=== PATIENT | male | born 1930 | race Caucasian/White ===

== ENCOUNTER 2017-01-16 02:01 | Inpatient (IN) | payer MEDICARE, MEDICAID ==
[2017-01-16] MEDS ORDERED: NS 0.9% 1000 ML* 1,000 ML IV ONE ×4 (02:23→12:21)
[2017-01-16] MEDS ORDERED: Ondansetron INJ* 2 MG/ML VIAL IV ONE ×2 (02:23→04:05)
[2017-01-16] MEDS ORDERED: Acetaminophen TAB* 325 MG PO ONE (02:40)
[2017-01-16 03:16] LABS: ABS Basophils 0 10^3/ul (0-0.2); ABS Eosinophils 0 10^3/ul (0-0.6); ABS Lymphocytes 0.5 10^3/ul (1.0-4.8); ABS Monocytes 0.4 10^3/ul (0-0.8); ABS Neutrophils 8.5 10^3/ul (1.5-7.7); ABS Nucleated RBC 0 10^3/ul; Eosinophil % 0.2 % (0-6); Hematocrit 40 % (42-52); Hemoglobin 13.4 g/dl (14.0-18.0); Lymphocyte % 5.3 % (25-47); Mean Corpuscular HGB Conc 34 g/dl (31-36); Mean Corpuscular Hemoglobin 31 pg (27-31); Mean Corpuscular Volume 91 fL (80-94); Mean Platelet Volume 8 um3 (7.4-10.4); Nucleated Red Blood Cells % 0; Platelet Count 204 10^3/ul (150-450); Red Blood Count 4.35 10^6/ul (4.0-5.4); Red Cell Distribution Width 15 % (10.5-15); White Blood Count 9.4 10^3/ul (3.5-10.8)
[2017-01-16 03:24] LABS: INR 1.11 (0.77-1.02)
[2017-01-16 03:31] LABS: EGFR Non-African American 65.7 (>60)
[2017-01-16] MEDS ORDERED: Iohexol 300* (CONTRAST) 10 ML SDV IV ONE (03:35)
[2017-01-16] MEDS ORDERED: Ondansetron INJ* 2 MG/ML VIAL ONE (04:05)
[2017-01-16] MEDS ORDERED: Acetaminophen SUPP* 650 MG SUPP PR ONE (04:05)
[2017-01-16] MEDS ORDERED: Acetaminophen SUPP* 650 MG SUPP ONE (04:05)
[2017-01-16 04:16] LABS: Urine Appearance Clear; Urine Blood 1+ (Negative); Urine Color Amber; Urine Ketones Negative (Negative); Urine Protein 1+(30 mg/dL) (Negative); Urine Specific Gravity 1.019 (1.010-1.030); Urine Urobilinogen Positive (Negative)
[2017-01-16] MEDS ORDERED: Levofloxacin 500 MG IVPREMIX(* 500 MG/100 ML BAG IVPB ONE (04:54)
[2017-01-16] MEDS ORDERED: metroNIDAZOLE IV 500 MG/100ML* 500 MG/100 ML BAG IVPB ONE (04:55)
[2017-01-16] MEDS ORDERED: Ibuprofen TAB* 800 MG PO ONE (05:14)
--- NOTE | 2017-01-16 06:19 | ED ---
Ulices Castillo Thomas, scribed for Zoran Gonzales MD on 01/16/17 at 0226 . Complex/Multi-Sys Presentation - HPI Summary HPI Summary: The patient is a 86 year old male brought in by ambulance with a fever at 101.5 , nausea, and vomiting (small amounts x2 episodes) that began one hour ago. He was short of breath prior to arrival, but he took albuterol and his shortness of breath is relieved in the ED. His last BM was yesterday at 21:00. Patient additionally complains of chronic back pain. Patient denies diarrhea. He had a AAA repair a few weeks ago. - History Of Current Complaint Chief Complaint: EDFever Hx Obtained From: Patient Onset/Duration: Lasting Hours - 1, Still Present Timing: Intermittent, Lasting: - two episodes Severity Currently: Moderate Aggravating Factor(s): None Alleviating Factor(s): None Associated Signs And Symptoms: Positive: Other - Fever, nausea, vomiting, chronic back pain; NEGATIVE: SOB, diarrhea - Allergies/Home Medications Allergies/Adverse Reactions: Allergies Allergy/AdvReac Type Severity Reaction Status Date / Time Penicillins Allergy Intermediate Hives Verified 09/01/15 19:07 Home Medications: Home Medications Fluticas/Salmet 230/21 HFA(NF) [Advair HFA 23O/21 (NF)] 2 puff INH BID 01/16/17 [History Confirmed 01/16/17] PMH/Surg Hx/FS Hx/Imm Hx Previously Healthy: No Endocrine/Hematology History: Reports: Hx Anticoagulant Therapy - Xarelto, Hx Blood Transfusions, Other Endocrine/Hematological Disorders - Vitamin B deficiency Denies: Hx Diabetes, Hx Systemic Lupus Erythematosus, Hx Sickle Cell Disease Cardiovascular History: Reports: Hx Aneurysm - abdominal aorta, Hx Angina, Hx Coronary Artery Disease, Hx Hypercholesterolemia, Hx Hypertension, Other Cardiovascular Problems/Disorders - AAA ABOVE RENAL BIFERCATION RECENT MEASURE CTA 11.30.2012 Denies: Hx Congestive Heart Failure Respiratory History: Reports: Hx Asthma, Hx Chronic Obstructive Pulmonary Disease (COPD), Hx Sleep Apnea - CPAP at home, Other Respiratory Problems/ Disorders - SOME FORM OF INFLAMATORY PROCESS IN PROGRESS 1 YEAR GI History: Denies: Hx Diverticulosis History: Reports: Hx Benign Prostatic Hyperplasia - minimal, Hx Kidney Stones - 20 years ago Comment Only: Other Problems/Disorders - HAS BE[facility] DR [facility]? 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 none since Hx Anesthesia Reactions: No - Immunization History Date of Tetanus Vaccine: PT STATES HE DOES NOT KNOW Date of Influenza Vaccine: PT STATES THAT HE DOES NOT KNOW Infectious Disease History: No Infectious Disease History: Denies: Traveled Outside the [place] in Last 30 Days - Family History Known Family History: Positive: Other - Patient denies relevant FHx - Social History Alcohol Use: None Hx Substance Use: No Substance Use Type: Reports: None Hx Tobacco Use: No Smoking Status (MU): Never Smoked Tobacco Review of Systems Positive: Fever Negative: Shortness Of Breath Positive: Vomiting, Nausea. Negative: Diarrhea Positive: Other - Chronic back pain All Other Systems Reviewed And Are Negative: Yes Physical Exam - Summary Physical Exam Summary: VITAL SIGNS: Reviewed. GENERAL: Patient is a well-developed and nourished male who is lying comfortable in the stretcher. He is in mild distress. Patient is not in any acute respiratory distress. HEAD AND FACE: No signs of trauma. No ecchymosis, hematomas or skull depressions. No sinus tenderness. EYES: PERRLA, EOMI x 2, No injected conjunctiva, no nystagmus. EARS: Hearing grossly intact. Ear canals and tympanic membranes are within normal limits. MOUTH: Oropharynx within normal limits. NECK: Supple, trachea is midline, no adenopathy, no JVD, no carotid bruit, no c- spine tenderness, neck with full ROM. CHEST: Symmetric, no tenderness at palpation LUNGS: He has decreased breath sounds bilaterally. CVS: Regular rate and rhythm, S1 and S2 present, no murmurs or gallops appreciated. ABDOMEN: His belly is distended. There are hypoactive bowel sounds. He has mild diffuse abdominal tenderness. Soft. No rebound no guarding, and no masses palpated. EXTREMITIES: FROM in all major joints, no edema, no cyanosis or clubbing. NEURO: Alert and oriented x 3. No acute neurological deficits. Speech is normal and follows commands. He has a static tremor in both upper extremities. SKIN: Dry and warm Triage Information Reviewed: Yes Vital Signs On Initial Exam: Initial Vitals Temp Pulse Resp BP Pulse Ox 101.5 F 109 22 136/60 96 01/16/17 02:05 01/16/17 02:05 01/16/17 02:05 01/16/17 02:05 01/16/17 02:05 Vital Signs Reviewed: Yes Diagnostics - Vital Signs Vital Signs Temp Pulse Resp BP Pulse Ox 01/16/17 02:05 101.5 F 109 22 136/60 96 - Laboratory Result Diagrams: 01/16/17 03:00 01/16/17 03:00 Lab Statement: Any lab studies that have been ordered have been reviewed, and results considered in the medical decision making process. - Radiology CXR Xray Interpretation: No Acute Changes - normal exam Radiology Interpretation Completed By: ED Physician XR Abdomen Xray Interpretation: Positive (See Comments) - Excessive stools Radiology Interpretation Completed By: ED Physician - CT CT Abd/Pel CT Interpretation: Positive (See Comments) - Aortic aneurysm repair with stent graph .Gallbladder distension and wall Thickening with a silhouette of pericholecystic fluid. Stones are not identified. Findings may reflect cholecystitis. Correlation with history and exam is recommended. Dr. Gonzales has reviewed this report. CT Interpretation Completed By: Radiologist - EKG 02:30 Cardiac Rate: Tachycardia EKG Rhythm: Sinus Tachycardia - at 108 BPM EKG Interpretation: Normal axis. Normal intervals. No ischemic changes. Complex Multi-Symp Course/Dx Assessment/Plan: The patient is a 86 year old male brought in by ambulance with a fever at 101.5, nausea, and vomiting (small amounts x2 episodes) that began one hour ago. He was short of breath prior to arrival, but he took albuterol and his shortness of breath is relieved in the ED. His last BM was yesterday at 21:00. Patient additionally complains of chronic back pain. Patient denies diarrhea. He had a AAA repair a few weeks ago. In the ED course the patient was given IV fluids, acetaminophen, ibuprofen, Levofloxacin, Flagyl and Zofran. Bloodwork and urinalysis was obtained. EKG shows sinus tachycardia. CXR shows negative exam. XR Abdomen shows excessive stools. CT Abd/Pel shows aortic aneurysm repair with stent graph .Gallbladder distension and wall Thickening with a silhouette of pericholecystic fluid. Stones are not identified. Findings may reflect cholecystitis. Correlation with history and exam is recommended. The patient is admitted by the hospitalists with diagnosis of acute cholecystitis. - Diagnoses Provider Diagnoses: Acute cholecystitis - Physician Notifications Discussed Care Of Patient With: Cuco Reyes Time Discussed With Above Provider: 05:56 Instructed by Provider To: Other - I consulted with maryse Whitfield, who recommends admission to the hospitalist. I spoke with Dr. Up, hospitalist, at 06:12. He will admit the patient. Discharge - Discharge Plan Condition: Fair Disposition: ADMITTED TO [facility] Referrals: Eve Hurst, [employer]IST [Primary Care Provider] - The documentation as recorded by the Ulices mancera Thomas accurately reflects the service I personally performed and the decisions made by me, Zoran Gonzales MD.
[2017-01-16] MEDS ORDERED: Ondansetron INJ* 2 MG/ML VIAL IV PRN (07:53)
[2017-01-16] MEDS ORDERED: Acetaminophen TAB* 325 MG PO PRN (07:53)
[2017-01-16] MEDS ORDERED: Albuterol HFA INHALER* 8 gm MDI INH PRN (07:54)
[2017-01-16] MEDS ORDERED: Morphine INJ* 2 MG/ML 1 ML SYRINGE (TWO MG - NEW SYRINGE VERSION) IV PRN (07:54)
--- NOTE | 2017-01-16 08:11 | ADMNOTE ---
Subjective Date of Service: 01/16/17 Interval History: ADMISSION HISTORY AND PHYSICAL EXAM: Allergies Allergy/AdvReac Type Severity Reaction Status Date / Time Penicillins Allergy Intermediate Hives Verified 09/01/15 19:07 Home Medications Medication Instructions Recorded Confirmed Type Albuterol HFA INHALER* [Ventolin 2 puff INH Q4H PRN 04/15/13 01/16/17 History HFA Inhaler*] Cholecalciferol [Vitamin D3] 2,000 unit PO DAILY 04/15/13 01/16/17 History Citalopram TAB* [Celexa TAB*] 20 mg PO DAILY 04/15/13 01/16/17 History Cyanocobalamin TAB* [Vitamin B12 500 mcg PO DAILY 04/15/13 01/16/17 History TAB*] Saw Destrehan (Serenoa Repens) [Saw 500 mg PO BID 04/15/13 01/16/17 History Destrehan] Amiodarone TAB* [Cordarone Tab*] 200 mg PO DAILY 08/19/15 01/16/17 History Ferrous Sulfate TAB* 325 mg PO BID 08/19/15 01/16/17 History amLODIPine TAB* [Norvasc 5 mg TAB*] 10 mg PO DAILY 08/19/15 01/16/17 History Pantoprazole TAB (NF) [Protonix 40 mg PO DAILY #30 tab 08/23/15 01/16/17 Rx TAB (NF)] Fluticas/Salmet 230/21 HFA(NF) 2 puff INH BID 01/16/17 01/16/17 History [Advair HFA 23O/21 (NF)] HPI: The patient was in his usual state of health until 01/15 about 10 PM he developed nausea, then emesis and shaking chills. T up to 104.7 in ED, received APAP. No pain. No previous similar episodes. Social History: Findings - Lives with his son Angel who is his SDM. No alcohol or tobacco use. Past Medical History: Findings - Percutaneous repoari AAA 11/2016 at [facility]. Hx GI bleed 2015. Atrial fib, CAD, HTN, B12 deficiency, COPD, TARAH, hx TIA Review of Systems - Measurements Intake and Output: Intake and Output Last 24 Hours 12/09/17 12/10/17 12/11/17 12/12/17 06:59 06:59 06:59 06:59 Intake Total 2199 Balance 2199 Weight 215 lb Intake: IV Fluids 2199 - Review of Systems Constitutional Symptoms: Negative: Weight Gain, Weight Loss, Weakness, Fatigue, Fever, Night Sweats, Unexplained Falls, Other Dermatology: Positive: Normal HEENT: Positive: Normal Eyes: Negative: Normal, Change in Vision, Double Vision, Eye Pain, Glaucoma, Cataract, Contacts or Glasses, Other Thyroid: Positive: Normal Pulmonary: Positive: Cough, COPD, Other - TARAH Cardiology: Positive: Other - HX atrial fib Gastroenterology: Positive: Nausea, Vomiting Musculoskeletal: Positive: Joint Pain Endocrinology: Positive: Normal Hematologic/Lymphatic: Negative: Anemia, Easy Brusing, Hx Leukemia, Hx Lymphoma, Use of Anticoagulant, Use of Antiplatelet Drugs, Other Neurology: Positive: Normal Psychiatry: Positive: Normal Allergic/Immunologic: Negative: Hx Anaphylaxis, Hx Angioedema, Hx Environmental, Hx Seasonal, Athsma, Hx HIV, Immunocompromise, Swollen Glands LymphNodes, Other Objective Active Medications: Acetaminophen (Tylenol Tab*) 650 mg PO Q4H PRN PRN Reason: FEVER Albuterol (Ventolin Hfa Inhaler*) 2 puff INH Q4H PRN PRN Reason: SHORTNESS OF BREATH Amiodarone HCl (Cordarone Tab*) 200 mg PO DAILY RENALDO Citalopram Hydrobromide (Celexa Tab*) 20 mg PO DAILY RENALDO Cyanocobalamin (Vitamin B12 Tab*) 500 mcg PO DAILY [facility] Enoxaparin Sodium (Lovenox(*)) 40 mg SUBCUT Q24H [facility] Levofloxacin/Dextrose (Levaquin 500 Mg Ivpremix(*)) 500 mg in 100 mls @ 100 mls /hr IVPB Q24H RENALDO Metronidazole/Sodium Chloride (Flagyl 500 Mg Ivpb*) 500 mg in 100 mls @ 100 mls /hr IVPB Q8H [facility] Morphine Sulfate (Morphine Inj (Syringe)*) 1 mg IV Q1H PRN PRN Reason: PAIN Ondansetron HCl (Zofran Inj*) 4 mg IV Q4H PRN PRN Reason: NAUSEA Pantoprazole Sodium (Protonix Tab (Nf)) 40 mg PO DAILY [facility] Vital Signs - 8 hr 01/16/17 01/16/17 01/16/17 02:05 03:05 03:07 Temperature 101.5 F Pulse Rate 109 106 105 Respiratory 22 Rate Blood Pressure 136/60 135/66 (mmHg) O2 Sat by Pulse 96 92 93 Oximetry 01/16/17 01/16/17 01/16/17 03:26 04:03 04:05 Temperature Pulse Rate 109 100 Respiratory Rate Blood Pressure 148/69 (mmHg) O2 Sat by Pulse 93 92 Oximetry 01/16/17 01/16/17 01/16/17 04:07 04:18 05:00 Temperature 104.7 F Pulse Rate 104 101 Respiratory 32 32 Rate Blood Pressure 143/70 125/56 (mmHg) O2 Sat by Pulse 93 90 Oximetry 01/16/17 01/16/17 01/16/17 05:04 05:30 06:00 Temperature 103.2 F Pulse Rate 97 95 Respiratory 26 29 Rate Blood Pressure 118/63 117/60 (mmHg) O2 Sat by Pulse 92 93 Oximetry 01/16/17 01/16/17 01/16/17 06:04 06:30 07:00 Temperature 99.9 F Pulse Rate 91 89 Respiratory 28 27 Rate Blood Pressure 101/60 102/60 (mmHg) O2 Sat by Pulse 93 92 Oximetry 01/16/17 07:04 Temperature 98.3 F Pulse Rate Respiratory Rate Blood Pressure (mmHg) O2 Sat by Pulse Oximetry Oxygen Devices in Use Now: None Appearance: Alert, partly up on ED stretcher. In good spirits. Looks comfortable. Eyes: No Scleral Icterus Ears/Nose/Mouth/Throat: Mucous Membranes Moist Neck: NL Appearance and Movements; NL JVP, No Thyroid Enlargement, Masses Respiratory: Symmetrical Chest Expansion and Respiratory Effort, Clear to Auscultation, Clear to Percussion Abdominal: No Hepatosplenomegaly, - - very obese, soft, not tender. Diminished BS. Extremities: No Edema, No Clubbing, Cyanosis, - Skin: No Nodules or Sclerosis, - - lower legs somewhat hyperpigmented Neurological: Alert and Oriented x 3, NL Sensation Result Diagrams: 01/16/17 03:00 01/16/17 03:00 Assess/Plan/Problems-Billing Assessment: - Patient Problems (1) Elevated LFTs Current Visit: Yes Status: Acute Code(s): R79.89 - OTHER SPECIFIED ABNORMAL FINDINGS OF BLOOD CHEMISTRY SNOMED Code(s): 046300061 Comment: Possible cholecystitis. Continue levofloxacin and metro. Dr. Reid to see. US abd ordered. CLear liquids, IV fluids, antiemetic PRN, analagesic PRN. CMP 01/17. (2) Atrial fibrillation Current Visit: No Status: Acute Code(s): I48.91 - UNSPECIFIED ATRIAL FIBRILLATION SNOMED Code(s): 54697558 Comment: Continue amiodarone. Off anticoagulation since GI bleed 2016. Avoid ASA or other NSAID's. (3) Iron deficiency Current Visit: Yes Status: Acute Code(s): E61.1 - IRON DEFICIENCY SNOMED Code(s): 53976566 Comment: Clearly present in 2016, appears to be repleted. Stop iron, monitor. (4) Sepsis Current Visit: Yes Status: Acute Comment: Sepsis due to probable cholecystitis. Repeat lactate pending. Continue IV fluids. ICU care first 24 hrs. (5) CAD (coronary artery disease) Current Visit: No Status: Acute Code(s): I25.10 - ATHSCL HEART DISEASE OF [place] CORONARY ARTERY W/O ANG PCTRS SNOMED Code(s): 49865220 Comment: Stable. No ASA as may have caused his GI bleed 2015. (6) DVT prophylaxis Current Visit: No Status: Acute Code(s): GUT0327 - SNOMED Code(s): 148482567 Comment: Enoxaparin. Benefit outweighs risk. CBC 01/17. (7) COPD (chronic obstructive pulmonary disease) Current Visit: No Status: Acute Code(s): J44.9 - CHRONIC OBSTRUCTIVE PULMONARY DISEASE, UNSPECIFIED SNOMED Code(s): 61592459 Comment: Stable. Continue albuterol PRN. (8) HTN (hypertension) Current Visit: No Status: Chronic Code(s): I10 - ESSENTIAL (PRIMARY) HYPERTENSION SNOMED Code(s): 95176272 Comment: Hold amlodipine.
--- NOTE | 2017-01-16 08:11 | RAD ---
Indication: Vomiting. Patient status post aortic stent graft repair. Bowel gas pattern is otherwise unremarkable. No evidence of obstruction is noted. IMPRESSION: No free air or obstruction is noted. Patient status post aortic stent graft repair.
--- NOTE | 2017-01-16 08:13 | RAD ---
INDICATION: Shortness of breath. COMPARISON: Comparison is made with a prior study from March 04, 2016. TECHNIQUE: Dual-energy PA views of the chest were obtained. FINDINGS: The heart is within normal limits in size. Mediastinal and hilar contours appear within normal limits. The lungs are underinflated. There are linear infiltrates at both lung bases suggestive of atelectasis. No pleural effusion is seen. IMPRESSION: LOW LUNG VOLUMES AND BIBASILAR INFILTRATES SUGGESTIVE OF ATELECTASIS.
[2017-01-16] MEDS: D5W 1/2 NS KCl 20 Meq 1000 ML* 1,000 ML IV SCH ×2 (09:41→20:01)
--- NOTE | 2017-01-16 09:50 | RAD ---
Indication: Abdominal pain. Contrast: Administered 131.0 ml of OMNIPAQUE 300 mg/ml. CT of the abdomen and pelvis was performed after IV contrast administration. No oral contrast was given. Coronal and sagittal reconstructed images were obtained. The lung bases demonstrate no pleural fluid, nodules or masses. Heart is of normal size without evidence of pericardial effusion. The liver is normal in size. No focal lesions or intrahepatic duct dilatation is noted. There is motion artifact noted. The gallbladder demonstrates no calcified gallstones. There may be some mild wall thickening. The spleen is normal in size. No adrenal lesions are noted. The kidneys demonstrate symmetric nephrograms. Small cortical cyst in the upper pole of the right kidney. The pancreas demonstrates no mass or pancreatic duct dilatation. Duodenal diverticulum is noted. No retroperitoneal lymphadenopathy is noted. No dilated loops of bowel are noted. The colon is filled with stool. There is aneurysmal dilatation of the [place] aorta with aortic stent graft repair. Common iliac arteries are unremarkable. CT of the pelvis demonstrates no retroperitoneal or pelvic lymphadenopathy. The prostate is enlarged. The seminal vesicles are unremarkable. No hernias are noted. IMPRESSION: No abnormal masses or fluid collections are noted. Patient is status post aortic stent graft repair.
--- NOTE | 2017-01-16 10:28 | RAD ---
Indication: Fever, elevated liver enzymes. Real-time sonography of the right upper quadrant was performed. The liver measures 18.0 cm in length. It is diffusely increased in echogenicity consistent with hepatic steatosis. The study is limited due to overlying gas. The gallbladder is distended. The gallbladder appears to be mildly thickened measuring up to 5 mm although no evidence of gallstones are noted. Common duct measures 5 mm. Right kidney measures 12.6 x 6.0 x 5.9 cm with no hydronephrosis. A cyst is noted in the upper pole of the right kidney measured to 15 mm. The pancreas is limited in evaluation due to body habitus. Aorta and inferior vena cava are unremarkable. IMPRESSION: The gallbladder is distended with wall thickening measuring up to 5 mm however no gallstones are identified. There is evidence of hepatic steatosis.
[2017-01-16] MEDS: Citalopram TAB* 20 MG PO SCH (10:30)
[2017-01-16] MEDS: Amiodarone TAB* 200 MG PO SCH (10:30)
[2017-01-16] MEDS: Enoxaparin(*) 40 MG/0.4 ML SYR SUBCUT SCH (10:30)
[2017-01-16] MEDS: Omeprazole CAP* 20 MG PO SCH (10:30)
[2017-01-16] MEDS: Cyanocobalamin TAB* 500 MCG PO SCH (10:30)
[2017-01-16] MEDS: metroNIDAZOLE IV 500 MG/100ML* 500 MG/100 ML BAG IVPB SCH ×2 (14:52→21:47)
--- NOTE | 2017-01-16 20:16 | CONS ---
CC: Eve Garrido NP, [facility] * CONSULTATION REPORT: DATE OF CONSULT: 01/16/17 REFERRING PROVIDER: Dr. Mynor Roland, hospitalist. REASON FOR CONSULTATION: Possible cholecystitis. HISTORY OF PRESENT ILLNESS: Mr. Abdi Cooney is a very pleasant 86-year-old gentleman who had gone out for dinner last evening at a fund raising dinner when 3 to 4 hours after that he developed what he described as nausea without vomiting. He felt a little bit of abdominal bloating, but he had no abdominal pain. There was no pain into his back or chest or right shoulder. He also had some shaking chills and they noted to have a temperature of 104.7 in the emergency room and he received Tylenol. After presenting to the emergency room, he also had some vomiting, which he described as the food almost intact that he had eaten earlier for dinner. When seen in the emergency room, he did indeed have a temperature up to 104.7. Blood cultures were obtained. He was noted to have abdominal distention, but no localizing abdominal pain. Laboratory values include a white blood cell count of 9.4 with a hemoglobin of 13.4. He had a rise in his neutrophils. Also, of note was an elevated lactic acid to 4.3. He had total bili of 2.1, AST and ALT of 221 and 99, and alkaline phosphatase 187, C-reactive protein of 12.5. It should be noted that his lactic acid has decreased steadily over the course of the day. A CT scan was also obtained. This has been read by our radiologist and I reviewed these images. This shows an intact aortic stent graft in the aorta with no abnormality. The gallbladder demonstrated no calcified stones and there was a possibility of some mild wall thickening, but no pericholecystic fluid. There were no other acute findings. Subsequently, he underwent an ultrasound of his gallbladder. This once again also showed no gallstones, but the gallbladder was distended with mild thickening of the gallbladder wall up to 5 mm. The common bile duct measured 5 mm. There are no other acute findings. He was started on a broad spectrum IV antibiotics. He has been admitted to the intensive care unit in light of his fever and sepsis diagnosis for further evaluation. A surgical consultation was obtained. PAST MEDICAL HISTORY: 1. Atrial fibrillation, longstanding. 2. History of abdominal aortic aneurysm, status post repair with a stent graft 6 weeks ago at the [facility]. 3. Obstructive lung disease. 4. History of iron deficiency. 5. Coronary artery disease. 6. Hypertension. PAST SURGICAL HISTORY: Aortic stent placement percutaneously 6 weeks ago at the [facility]. He has not had prior abdominal surgeries. MEDICATIONS ON ADMISSION: Include: 1. Amiodarone. 2. Albuterol. 3. Ferrous sulfate. 4. Vitamin B. 5. Citalopram. 6. Saw palmetto. 7. Amlodipine. 8. Pantoprazole. ALLERGIES: He is allergic to PENICILLINS. SOCIAL HISTORY: He is retired. He lives with his son Angel who is his decision maker. He does not use alcohol or tobacco. REVIEW OF SYSTEMS: GI: As per above. He has no history of gallbladder or biliary tract symptoms. No history of hepatitis. He has had no noted diarrhea or blood per rectum. He has a history of melena and his anticoagulation was stopped over a year ago for this reason. PHYSICAL EXAM: Temperature 98.6, pulse 62, blood pressure 98/53. In general, he is a slightly overweight male, appears to be in no apparent distress. He is sitting upright in bed, appears to be quite pleasant and conversive. The sclerae is anicteric. His oral mucosa is slightly dry. His lungs are clear to auscultation with normal respiratory effort. Heart has regular rate and rhythm without murmurs, rubs, or gallops. His abdomen is soft, but distended and protuberant. There are no prior surgical incisions. There are no hernias noted. He had some hyperactive bowel sounds throughout, but these are not high pitched or tinkling. He has no tenderness in the left upper abdomen, epigastric or right upper quadrant area. There is no rebound or guarding or localizing abdominal discomfort noted. IMPRESSION: Sudden onset of nausea with vomiting and a markedly elevated fever. This was followed by vomiting food that had been eaten at his dinner. Laboratory values include a normal white blood cell count with a mildly elevated total bilirubin and liver transaminases. Ultrasound and CT scan are as above. At this point, reviewing both the ultrasound and the CAT scan as well as the physical exam, it is difficult to say with certainty whether this is an acute acalculous cholecystitis. His exam is benign and although there is some mild thickening of the gallbladder wall, there is no pericholecystic fluid and the wall appears to enhance nicely on the CT scan. There is no ductal dilation and once again no stones. Certainly this could be an early stage of acute acalculous cholecystitis; however, I am quite impressed with a fever up to 104 that could have occurred quite that quickly, although with an 86-year-old gentleman there could be atypical presentations of cholecystitis. Another possibility would be cholangitis with a passed gallstone or debris although I think this would be less likely without stones noted on an ultrasound or the CT scan. However, cholangitis can present with dramatic signs and symptoms of sepsis, similar to his presentation. At this point, he seems to be feeling much better. He is tolerating liquids. He has no abdominal pain, further vomiting. He is afebrile. He has been started on broad-spectrum antibiotics and blood cultures are pending. I discussed this care with the patient, his son as well as Dr. Roland. Recommendation would be continued observation and repeat laboratory values tomorrow. If there is no improvement or worsening, I would recommend we proceed with a HIDA scan and/or MRCP to rule out cholecystitis and/or common bile duct obstruction. He is presently on ciprofloxacin and Flagyl. For now, we will follow him closely with you, await blood work tomorrow and proceed accordingly. [id number]/CPS #: [id number] MTDRamses
[2017-01-17] MEDS: metroNIDAZOLE IV 500 MG/100ML* 500 MG/100 ML BAG IVPB SCH ×3 (05:30→22:13)
[2017-01-17] MEDS ORDERED: Levofloxacin 500 MG IVPREMIX(* 500 MG/100 ML BAG IVPB SCH (06:00)
[2017-01-17 06:32] LABS: ABS Basophils 0 10^3/ul (0-0.2); ABS Eosinophils 0.1 10^3/ul (0-0.6); ABS Lymphocytes 0.6 10^3/ul (1.0-4.8); ABS Monocytes 0.5 10^3/ul (0-0.8); ABS Nucleated RBC 0 10^3/ul; Eosinophil % 1.4 % (0-6); Hematocrit 33 % (42-52); Hemoglobin 11.1 g/dl (14.0-18.0); Lymphocyte % 8.7 % (25-47); Mean Corpuscular HGB Conc 34 g/dl (31-36); Mean Corpuscular Hemoglobin 31 pg (27-31); Mean Corpuscular Volume 91 fL (80-94); Mean Platelet Volume 8 um3 (7.4-10.4); Nucleated Red Blood Cells % 0; Platelet Count 113 10^3/ul (150-450); Red Blood Count 3.63 10^6/ul (4.0-5.4); Red Cell Distribution Width 14 % (10.5-15); White Blood Count 7.2 10^3/ul (3.5-10.8)
--- NOTE | 2017-01-17 08:29 | PN ---
Subjective Date of Service: 01/17/17 Interval History: He denies nausea, abd pain. No new c/o. Social History: Findings - Lives with his son Angel who is his SDM. No alcohol or tobacco use. 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 Hx GI bleed 2015. Atrial fib, CAD, HTN, B12 deficiency, COPD, TARAH, hx TIA Objective Active Medications: Acetaminophen (Tylenol Tab*) 650 mg PO Q4H PRN PRN Reason: FEVER Albuterol (Ventolin Hfa Inhaler*) 2 puff INH Q4H PRN PRN Reason: SHORTNESS OF BREATH Amiodarone HCl (Cordarone Tab*) 200 mg PO DAILY [facility] Last Admin: 01/16/17 10:30 Dose: 200 mg Citalopram Hydrobromide (Celexa Tab*) 20 mg PO DAILY [facility] Last Admin: 01/16/17 10:30 Dose: 20 mg Cyanocobalamin (Vitamin B12 Tab*) 500 mcg PO DAILY [facility] Last Admin: 01/16/17 10:30 Dose: 500 mcg Enoxaparin Sodium (Lovenox(*)) 40 mg SUBCUT Q24H [facility] Last Admin: 01/16/17 10:30 Dose: 40 mg Ferrous Sulfate (Ferrous Sulfate Tab*) 325 mg PO BID [facility] Levofloxacin/Dextrose (Levaquin 500 Mg Ivpremix(*)) 500 mg in 100 mls @ 100 mls /hr IVPB Q24H [facility] Last Admin: 01/17/17 06:38 Dose: 100 mls/hr Metronidazole/Sodium Chloride (Flagyl 500 Mg Ivpb*) 500 mg in 100 mls @ 100 mls /hr IVPB Q8H [facility] Last Admin: 01/17/17 05:30 Dose: 100 mls/hr Potassium Chloride/Dextrose (D5w 1/2 Ns Kcl 20 Meq 1000 Ml*) 1,000 mls @ 100 mls/hr IV PER RATE [facility] Last Admin: 01/16/17 20:01 Dose: 100 mls/hr Morphine Sulfate (Morphine Inj (Syringe)*) 1 mg IV Q1H PRN PRN Reason: PAIN Omeprazole (Prilosec Cap*) 20 mg PO DAILY [facility] Last Admin: 01/16/17 10:30 Dose: 20 mg Ondansetron HCl (Zofran Inj*) 4 mg IV Q4H PRN PRN Reason: NAUSEA Vital Signs - 8 hr 01/17/17 01/17/17 01/17/17 01:00 02:00 03:00 Pulse Rate 66 61 60 Respiratory 20 20 21 Rate Blood Pressure 103/72 104/55 99/55 (mmHg) O2 Sat by Pulse 91 96 95 Oximetry 01/17/17 01/17/17 01/17/17 04:00 05:00 06:00 Pulse Rate 58 60 65 Respiratory 18 21 28 Rate Blood Pressure 104/57 110/57 100/61 (mmHg) O2 Sat by Pulse 97 95 95 Oximetry 01/17/17 01/17/17 07:00 07:52 Pulse Rate 64 66 Respiratory 25 16 Rate Blood Pressure 110/60 (mmHg) O2 Sat by Pulse 93 Oximetry Oxygen Devices in Use Now: None Appearance: Alert, partly up on ICU bed. In good spirits. Looks comfortable. Eyes: No Scleral Icterus - mild icterus Respiratory: Symmetrical Chest Expansion and Respiratory Effort, Clear to Auscultation, Clear to Percussion Cardiovascular: NL Sounds; No Murmurs; No JVD, RRR, No Edema, - Abdominal: - - Very obese, soft, active BS, not tender. Extremities: No Edema, No Clubbing, Cyanosis, - Skin: No Rash or Ulcers, No Nodules or Sclerosis, - Neurological: Alert and Oriented x 3, NL Sensation Result Diagrams: 01/17/17 06:20 01/17/17 06:20 Microbiology and Other Data: Microbiology 01/16/17 09:45 Nasal Screen MRSA (PCR)([facility]) - Final Nasal Mrsa Negative Assess/Plan/Problems-Billing Assessment: - Patient Problems (1) Elevated LFTs Current Visit: Yes Status: Acute Code(s): R79.89 - OTHER SPECIFIED ABNORMAL FINDINGS OF BLOOD CHEMISTRY SNOMED Code(s): 585297232 Comment: Possible cholecystitis. Continue levofloxacin and metro. Dr. Reid to see. US abd showed GB distention and mild wall thickening. Clear liquids, IV fluids, antiemetic PRN, analagesic PRN. CMP 01/17. Discussed again with Dr. Reid 01/17. I alerted Dr. Torres to possible need for ERCP. (2) Atrial fibrillation Current Visit: No Status: Acute Code(s): I48.91 - UNSPECIFIED ATRIAL FIBRILLATION SNOMED Code(s): 61390695 Comment: Continue amiodarone. Off anticoagulation since GI bleed 2016. Avoid ASA or other NSAID's. (3) Iron deficiency Current Visit: Yes Status: Acute Code(s): E61.1 - IRON DEFICIENCY SNOMED Code(s): 74927361 Comment: Clearly present in 2016, appears to be repleted. Stop iron, monitor. (4) Sepsis Current Visit: Yes Status: Acute Comment: Sepsis due to probable cholecystitis. GNB in 1 blood C&S bottle. Repeat lactate wnl. Continue IV fluids. Transfer to medical floor 01/17. (5) CAD (coronary artery disease) Current Visit: No Status: Acute Code(s): I25.10 - ATHSCL HEART DISEASE OF [place] CORONARY ARTERY W/O ANG PCTRS SNOMED Code(s): 20662774 Comment: Stable. No ASA as may have caused his GI bleed 2016. (6) DVT prophylaxis Current Visit: No Status: Acute Code(s): OJO8317 - SNOMED Code(s): 509415507 Comment: Enoxaparin. Benefit outweighs risk. CBC 01/17. (7) COPD (chronic obstructive pulmonary disease) Current Visit: No Status: Acute Code(s): J44.9 - CHRONIC OBSTRUCTIVE PULMONARY DISEASE, UNSPECIFIED SNOMED Code(s): 36530760 Comment: Stable. Continue albuterol PRN. (8) HTN (hypertension) Current Visit: No Status: Chronic Code(s): I10 - ESSENTIAL (PRIMARY) HYPERTENSION SNOMED Code(s): 99748750 Comment: Continue to hold amlodipine.
[2017-01-17] MEDS: Amiodarone TAB* 200 MG PO SCH (09:14)
[2017-01-17] MEDS: Citalopram TAB* 20 MG PO SCH (09:14)
[2017-01-17] MEDS: Cyanocobalamin TAB* 500 MCG PO SCH (09:14)
[2017-01-17] MEDS: Omeprazole CAP* 20 MG PO SCH (09:14)
[2017-01-17] MEDS: Enoxaparin(*) 40 MG/0.4 ML SYR SUBCUT SCH (09:14)
[2017-01-17] MEDS: Ferrous Sulfate TAB* 325 MG PO SCH ×2 (09:14→21:04)
--- NOTE | 2017-01-17 10:34 | PN ---
Progress Note - Progress Note Date of Service: 01/17/17 SOAP: Subjective: Feels fine No abdominal pain or nausea Slept well overnight Tolerated liquids Objective: Afebrile for 24 hours Temp Pulse Resp BP Pulse Ox 99 F 79 16 115/62 88 01/17/17 00:00 01/17/17 09:00 01/17/17 10:00 01/17/17 10:00 01/17/17 09:00 Intake & Output 01/15/17 01/16/17 01/17/17 01/18/17 06:59 06:59 06:59 06:59 Intake Total 2200 5182 Output Total 2900 Balance 2200 2282 Weight 215 lb 217 lb 6.012 oz Intake: IV Fluids 2200 2905 D5W 1/2 NS 20 meq KCL 1830 NS (0.9%) 1075 IVPB 197 D5W 1/2 NS 20 meq KCL 197 Oral 2080 Output: Urine 2900 PEX: Comfortable-awake and alert Abd is soft and slightly distended. Bowel sounds are present and are hyperactive. No tenderness noted, no guarding or mass. Laboratory Results - last 24 hr 01/16/17 01/17/17 01/17/17 09:45 06:20 06:20 WBC 7.2 RBC 3.63 L Hgb 11.1 L Hct 33 L MCV 91 MCH 31 MCHC 34 RDW 14 Plt Count 113 L MPV 8 Neut % (Auto) 82.6 Lymph % (Auto) 8.7 L [place] % (Auto) 7.0 Eos % (Auto) 1.4 Baso % (Auto) 0.3 Absolute Neuts (auto) 6.0 Absolute Lymphs (auto) 0.6 L Absolute Monos (auto) 0.5 Absolute Eos (auto) 0.1 Absolute Basos (auto) 0 Absolute Nucleated RBC 0 Nucleated RBC % 0 Sodium 137 Potassium 3.9 Chloride 107 Carbon Dioxide 21 L Anion Gap 9 BUN 9 Creatinine 0.77 Est GFR ( Amer) 123.5 Est GFR (Non-Af Amer) 96.0 BUN/Creatinine Ratio 11.7 Glucose 96 Lactic Acid 2.3 H* Calcium 8.0 L Total Bilirubin 4.00 H D AST 109 H ALT 87 H Alkaline Phosphatase 150 H Total Protein 5.6 L Albumin 2.9 L Globulin 2.7 Albumin/Globulin Ratio 1.1 01/17/17 06:20 WBC RBC Hgb Hct MCV MCH MCHC RDW Plt Count MPV Neut % (Auto) Lymph % (Auto) [place] % (Auto) Eos % (Auto) Baso % (Auto) Absolute Neuts (auto) Absolute Lymphs (auto) Absolute Monos (auto) Absolute Eos (auto) Absolute Basos (auto) Absolute Nucleated RBC Nucleated RBC % Sodium Potassium Chloride Carbon Dioxide Anion Gap BUN Creatinine Est GFR ( Amer) Est GFR (Non-Af Amer) BUN/Creatinine Ratio Glucose Lactic Acid 0.9 Calcium Total Bilirubin AST ALT Alkaline Phosphatase Total Protein Albumin Globulin Albumin/Globulin Ratio Blood culture results noted Assessment: Hyperbilirubinemia Positive blood cultures-Gram negative (strep is contaminant ?) US/CT scan showing slight thickening of gallbladder wall without gallstones or duct dilation Normal WBC, normal lactic acid. ?? acute acalculous cholecystitis v acute cholangitis Plan: HIDA/MRCP today for further imaging Continue IV anbx Keep NPO Discussed with patient and Dr. Long Proceed accordingly after studies complete.
--- NOTE | 2017-01-17 12:35 | RAD ---
Indication: Jaundice. Image sequences: Axial T2, coronal T2, coronal T2 fat sat and MRCP images were obtained. The gallbladder is distended. There is pericholecystic fluid or wall thickening noted. The common duct measures up to 8 mm. No intrahepatic duct dilatation is noted. The axial images are limited due to artifact from patient's aortic stent graft. The visualized pancreas is otherwise unremarkable. The spleen is unremarkable. Bilateral effusions are noted. Parapelvic cysts are noted in the kidneys. IMPRESSION: Aortic stent graft limits evaluation. There is a distended gallbladder with no definite filling defects identified. No biliary duct dilatation. No intrahepatic duct dilatation is noted.
[2017-01-17] MEDS: D5W 1/2 NS KCl 20 Meq 1000 ML* 1,000 ML IV SCH (17:05)
--- NOTE | 2017-01-17 17:14 | RAD ---
INDICATION: Possible cholecystitis COMPARISON: gallbladder sonogram January 16, 2017; MR cholangiogram January 17, 2017 TECHNIQUE: Following the administration of 6.1 millicuries of technetium 99m mebrofenin, serial, static, anterior images of the abdomen were obtained at 5 minute increments for a period of one hour. FINDINGS: There is uptake of radiopharmaceutical within the liver but there no excretion to identify the gallbladder or the common duct despite imaging out to 4 hours. This suggests some degree of hepatic dysfunction. The examination is indeterminate for acute cholecystitis. The CT and MR findings could also be indicative of chronic cholecystitis. IMPRESSION: THERE IS NONVISUALIZATION OF THE GALLBLADDER AND SMALL BOWEL INDICATING HEPATIC DYSFUNCTION (SEE ABOVE).
[2017-01-17] MEDS: Ciprofloxacin 400MG IVPREMIX(* 400 MG/200 ML BAG IVPB SCH (21:00)
[2017-01-18] MEDS: D5W 1/2 NS KCl 20 Meq 1000 ML* 1,000 ML IV SCH ×2 (02:34→19:49)
[2017-01-18] MEDS: metroNIDAZOLE IV 500 MG/100ML* 500 MG/100 ML BAG IVPB SCH ×2 (05:41→17:59)
[2017-01-18 06:16] LABS: EGFR Non-African American 100.5 (>60)
[2017-01-18] MEDS: Enoxaparin(*) 40 MG/0.4 ML SYR SUBCUT SCH (09:12)
[2017-01-18] MEDS: Ferrous Sulfate TAB* 325 MG PO SCH ×2 (09:13→20:45)
[2017-01-18] MEDS: Citalopram TAB* 20 MG PO SCH (09:13)
[2017-01-18] MEDS: Ciprofloxacin 400MG IVPREMIX(* 400 MG/200 ML BAG IVPB SCH (09:13)
[2017-01-18] MEDS: Omeprazole CAP* 20 MG PO SCH (09:13)
[2017-01-18] MEDS: Cyanocobalamin TAB* 500 MCG PO SCH (09:13)
[2017-01-18] MEDS: Amiodarone TAB* 200 MG PO SCH (09:13)
--- NOTE | 2017-01-18 11:25 | PN ---
Progress Note - Progress Note Date of Service: 01/18/17 SOAP: Subjective: Without complaint today-he has no abdominal pain or N/V and is tolerating a regular diet. Objective: Temp Pulse Resp BP Pulse Ox 99.1 F 66 16 128/61 95 01/18/17 07:23 01/18/17 07:23 01/18/17 07:23 01/18/17 07:23 01/18/17 07:23 Intake & Output 01/16/17 01/17/17 01/18/17 01/19/17 06:59 06:59 06:59 06:59 Intake Total 2200 5182 1693 240 Output Total 2900 3400 450 Balance 2200 2282 -1707 -210 Weight 215 lb 217 lb 6.012 oz 217 lb 6.012 oz Intake: IV Fluids 2200 2905 1053 D5W 1/2 NS 20 meq KCL 1830 953 NS (0.9%) 1075 metronidazole 100 IVPB 197 10 D5W 1/2 NS 20 meq KCL 197 NS (0.9%) 10 Oral 2080 630 240 Output: Urine 2900 3400 450 Other: Estimated Void Medium # Bowel Movements 0 # Voids 2 PEX: Comfortable-awake and alert Abd is soft and non-distended. Bowel sounds are present and are normoactive. There is no tenderness, rebound or guarding. Laboratory Results - last 24 hr 01/18/17 05:27 Sodium 133 Potassium 3.5 Chloride 105 Carbon Dioxide 23 Anion Gap 5 BUN 5 L Creatinine 0.74 Est GFR ( Amer) 129.3 Est GFR (Non-Af Amer) 100.5 BUN/Creatinine Ratio 6.8 L Glucose 96 Calcium 8.0 L Total Bilirubin 3.80 H Direct Bilirubin 2.80 H Indirect Bilirubin 1.0 AST 78 H ALT 66 H Alkaline Phosphatase 160 H Total Protein 5.8 L Albumin 2.7 L Globulin 3.1 Albumin/Globulin Ratio 0.9 L MRCP reviewed-no apparent CBD stone/obstruction, no duct dilation; gallbladder without wall thickening or fluid, no stones HIDA- tracer remains in liver without excretion even on very delayed views-no filling of CBD, GB or intestine, findings consistent with ?? hepatic dysfuncton Final blood cultures are pending. Assessment: Sepsis-resolving, of unclear etiology--??cholecystits, ? cholangitis or other source. He remains afebrile without abdominal pain and is eating well. He has a normal WBC. Studies as above. Total bilirubin remains elevated and is conjugated consistent with an obstructive picture and transaminases are decreasing. Another concern would be his recently placed aortic stent graft. I'm not convinced he has acute acalculous cholecystitis as the cause of his sepsis and am reluctant at this point to proceed to OR for cholecystectomy as he is doing well clinically. Plan: ID consult with Dr. Culp today-discussed case with him today. Discussed with Dr. Torres from GI-he will see today-- Plan is to continue to follow and recheck labs tomorrow-if bilirubin remains elevated, consider ERCP? I will also attempt to discuss with his vascular surgeon at the [facility]- patient not certain of his name but he says his son will know but I am not able to contact son at this time. Continue IV abx.
--- NOTE | 2017-01-18 12:53 | CONS ---
CONSULTATION REPORT: DATE OF CONSULT: 01/18/17 REQUESTING PHYSICIAN: Dr. Reid. CONSULTING SERVICE: Infectious Disease. REASON FOR CONSULT: Bacteremia and sepsis. IMPRESSION: 1. Enterobacter cloacae in 2 of 4 blood culture bottles, Strep infantarius in 1 of 4. He had some vomiting on admission. Gallbladder ultrasound showed distended gallbladder, mild thickening, no gall-stones. CT scan had similar findings with a small amount of pericholecystic fluid. He had elevated alkaline phosphatase, ALT of 99 and AST of 200 with a bilirubin of 2.8 on admission without right upper quadrant symptoms. The combination of bacteria present do suggest a biliary source versus small intestine source. He had an aortic stent placed recently, nothing suggesting entero-aortic fistula. He has no symptoms of bowel perforation. His bilirubin is improving as are his ALT and AST, so he could have passed a small stone and had cholangitis, so it was a fairly limited episode and he does not have other stones seen on imaging. He had a urinalysis , which was pretty benign and I think a urinary source less likely. 2. Abdominal aortic aneurysm, status post stent placement in November 2016. 3. Atrial fibrillation. 4. Coronary artery disease. 5. Sepsis was present on admission. RECOMMENDATIONS: To add some gram positive coverage, we will stop Levaquin, start cefepime 1 g every 12 hours. Decrease the Flagyl from q.8 to q.12 and we will discuss his gallbladder findings with Dr. Reid and Dr. Roland. In the event he does not continue to improve rapidly, we can plan on at least 2 weeks of antibiotics and switch to oral antibiotics as long as his bacteremia clears and he continues to progress as he has done. If he continues to improve rapidly I will change HISTORY OF PRESENT ILLNESS: This is an 86-year-old male with coronary artery disease and recent aortic stent placement in November done at [place], [place] , admitted with sudden onset of vomiting and malaise without abdominal pain or diarrhea. In the ER, he had a CT of the abdomen and pelvis with IV contrast that showed no masses or fluid collection. The aortic graft was seen and MRCP showed no liver abscess. There was a distended gallbladder with no filling defects. No biliary duct dilatation. HIDA scan showed hepatic dysfunction without visualization of the gallbladder or small bowel. He has no abdominal pain. He is eating better. His vomiting has resolved. He has no diarrhea. He feels a little bit bloated. He has got no fevers, chills, or sweats. He has been up, walking around a little bit. He has had occasional difficulty emptying his bladder all the way, which happens from time to time at home. He had a little bit of early dysuria in urination, which seems to have resolved. He has got no flank tenderness or suprapubic tenderness. No skin rash. No cough or trouble breathing. No diarrhea. PAST MEDICAL HISTORY: 1. Abdominal aortic aneurysm, status post aortic stent. 2. Atrial fibrillation. 3. Hypertension. 4. Coronary artery disease and history of [place]. 5. B12 deficiency. 6. Arthritis. 7. History of TIA. 8. COPD. 9. Obstructive sleep apnea. 10. History of upper GI bleed. MEDICATIONS: 1. Tylenol. 2. Albuterol. 3. Amiodarone. 4. Celexa. 5. Vitamin B12. 6. Enoxaparin. 7. Ferrous sulfate. 8. Cipro 400 mg every 12 hours. 9. Flagyl 500 mg every 8 hours. 10. Omeprazole. 11. Zofran. ALLERGIES: PENICILLIN caused rash as a youngster. FAMILY HISTORY: No recurrent infections. SOCIAL HISTORY: Lives outside of [place] with a son. He has no travel or sick contacts. 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 REVIEW OF SYSTEMS: A 14-point review of systems was negative except as noted above. PHYSICAL EXAM: Vital Signs: Temperature is 37.3, heart rate 60, respiratory rate 16, blood pressure 130/60, O2 sat 95% on room air. General: He is awake, not in distress. Neurologic: He is oriented x3. Follows all commands. HEENT: There is no conjunctival hemorrhage. Oropharynx without lesions. Neck: Supple without nuchal rigidity. Lymph Nodes: There is no cervical, supraclavicular, inguinal, axillary, or epitrochlear lymphadenopathy. Heart: Regular rate and rhythm without murmurs, rubs, or gallops. Lungs: Clear to auscultation bilaterally. Abdomen: Soft, nontender. A little bit bloated. There is no rebound. There is bowel sounds present. Skin: There is no rash or splinter hemorrhages. Musculoskeletal: There is no spine tenderness to palpation or joint synovitis. DIAGNOSTIC STUDIES/LAB DATA: White blood cell count 7, hemoglobin 11, and platelets of 113,000. Creatinine 0.7, bilirubin 3.8, AST 78, ALT 66, alkaline phosphatase 160. Urinalysis showed 1+ blood, 1+ urobilinogen. No leukocyte esterase, no nitrites. Please see impressions and recommendations outlined above. Thanks for asking me to see Mr. Cooney in consultation. [id number]/[facility] #: [id number] [facility] CENTERRamses
--- NOTE | 2017-01-18 15:49 | PN ---
Subjective Date of Service: 01/18/17 Interval History: He denies pain. Some dysuria or pain at tip of his penis. APpetite OK. No bowel c/o. Social History: Findings - Lives with his son Angel who is his SDM. No alcohol or tobacco use. 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 Hx GI bleed 2015. Atrial fib, CAD, HTN, B12 deficiency, COPD, TARAH, hx TIA Objective Active Medications: Acetaminophen (Tylenol Tab*) 650 mg PO Q4H PRN PRN Reason: FEVER Albuterol (Ventolin Hfa Inhaler*) 2 puff INH Q4H PRN PRN Reason: SHORTNESS OF BREATH Amiodarone HCl (Cordarone Tab*) 200 mg PO DAILY [facility] Last Admin: 01/18/17 09:13 Dose: 200 mg Citalopram Hydrobromide (Celexa Tab*) 20 mg PO DAILY [facility] Last Admin: 01/18/17 09:13 Dose: 20 mg Cyanocobalamin (Vitamin B12 Tab*) 500 mcg PO DAILY [facility] Last Admin: 01/18/17 09:13 Dose: 500 mcg Enoxaparin Sodium (Lovenox(*)) 40 mg SUBCUT Q24H [facility] Last Admin: 01/18/17 09:12 Dose: 40 mg Ferrous Sulfate (Ferrous Sulfate Tab*) 325 mg PO BID [facility] Last Admin: 01/18/17 09:13 Dose: 325 mg Potassium Chloride/Dextrose (D5w 1/2 Ns Kcl 20 Meq 1000 Ml*) 1,000 mls @ 100 mls/hr IV PER RATE [facility] Last Admin: 01/18/17 02:34 Dose: 100 mls/hr Metronidazole/Sodium Chloride (Flagyl 500 Mg Ivpb*) 500 mg in 100 mls @ 100 mls /hr IVPB Q12H [facility] Cefepime HCl 1 gm/ Sodium (Chloride) 50 mls @ 100 mls/hr IVPB Q12H [facility] Morphine Sulfate (Morphine Inj (Syringe)*) 1 mg IV Q1H PRN PRN Reason: PAIN Omeprazole (Prilosec Cap*) 20 mg PO DAILY [facility] Last Admin: 01/18/17 09:13 Dose: 20 mg Ondansetron HCl (Zofran Inj*) 4 mg IV Q4H PRN PRN Reason: NAUSEA Vital Signs - 8 hr 01/18/17 01/18/17 08:00 11:37 Temperature 98.3 F Pulse Rate 66 Respiratory 18 16 Rate Blood Pressure 112/59 (mmHg) O2 Sat by Pulse 93 Oximetry Oxygen Devices in Use Now: None Appearance: Alert, supine in bed. In good spirits. Looks comfortable. Eyes: No Scleral Icterus Respiratory: Symmetrical Chest Expansion and Respiratory Effort, Clear to Auscultation, Clear to Percussion Cardiovascular: NL Sounds; No Murmurs; No JVD, RRR, No Edema, - Abdominal: NL Sounds; No Tenderness; No Distention, No Hepatosplenomegaly, - Extremities: No Edema, No Clubbing, Cyanosis, - Skin: No Rash or Ulcers, No Nodules or Sclerosis, - Neurological: Alert and Oriented x 3, NL Sensation Result Diagrams: 01/17/17 06:20 01/18/17 05:27 Microbiology and Other Data: Microbiology 01/16/17 09:45 Nasal Screen MRSA (PCR)(GENA) - Final Nasal Mrsa Negative Assess/Plan/Problems-Billing Assessment: - Patient Problems (1) Elevated LFTs Current Visit: Yes Status: Acute Code(s): R79.89 - OTHER SPECIFIED ABNORMAL FINDINGS OF BLOOD CHEMISTRY SNOMED Code(s): 736483066 Comment: Possible cholangitis. Continue cefepime and metro as per Dr. Silver. US abd showed GB distention and mild wall thickening. Low fat diet, IV fluids, antiemetic PRN, analgesic PRN. CMP 01/19. Discussed again with Dr. Reid 01/18. (2) Atrial fibrillation Current Visit: No Status: Acute Code(s): I48.91 - UNSPECIFIED ATRIAL FIBRILLATION SNOMED Code(s): 90900775 Comment: Continue amiodarone. Off anticoagulation since GI bleed 2015. Avoid ASA or other NSAID's. (3) Iron deficiency Current Visit: Yes Status: Acute Code(s): E61.1 - IRON DEFICIENCY SNOMED Code(s): 13478283 Comment: Clearly present in 2016, appears to be repleted. Stop iron, monitor. (4) Sepsis Current Visit: Yes Status: Acute Comment: Sepsis due to probable cholangitis. E. cloacae in 2 blood C&S bottle. Repeat lactate wnl. Continue IV fluids. (5) CAD (coronary artery disease) Current Visit: No Status: Acute Code(s): I25.10 - ATHSCL HEART DISEASE OF [place] CORONARY ARTERY W/O ANG PCTRS SNOMED Code(s): 36391757 Comment: Stable. No ASA as may have caused his GI bleed 2015. (6) DVT prophylaxis Current Visit: No Status: Acute Code(s): PSO5691 - SNOMED Code(s): 740191954 Comment: Enoxaparin. Benefit outweighs risk. CBC 01/17. (7) COPD (chronic obstructive pulmonary disease) Current Visit: No Status: Acute Code(s): J44.9 - CHRONIC OBSTRUCTIVE PULMONARY DISEASE, UNSPECIFIED SNOMED Code(s): 14811778 Comment: Stable. Continue albuterol PRN. (8) HTN (hypertension) Current Visit: No Status: Chronic Code(s): I10 - ESSENTIAL (PRIMARY) HYPERTENSION SNOMED Code(s): 25491337 Comment: Continue to hold amlodipine.
[2017-01-18] MEDS: Cefepime(*) 1 GM in NS 0.9% 50 ML* 50 ML IVPB SCH (17:08)
[2017-01-18] MEDS ORDERED: cefTRIAXone(*) 2 GM in NS 0.9% 100 ML* 100 ML IVPB SCH (17:30)
[2017-01-18] MEDS ORDERED: Cefepime 1 GM in Dextrose(*) 1 GM/50 ML BAG IV SCH (17:30)
--- NOTE | 2017-01-18 17:36 | PN ---
Progress Note - Progress Note Date of Service: 01/18/17 SOAP: Subjective: [] I discussed case with Dr. Sj Hernandez, vascular surgeon at the [facility] in [place] )who placed the aortic graft 6 weeks ago. He had no recent concerns for infection from his standpoint and did not have any further specific recommendations and agreed with terminal gauger supervisor antibiotics. He is doing well and I would favor continuing IV and subsequent oral antibiotics and follow labs for now, no plans for cholecystectomy at this time.
[2017-01-18] MEDS ORDERED: Cefepime(*) 1 GM in NS 0.9% 50 ML* 50 ML IVPB SCH (18:00)
[2017-01-19] MEDS: Cefepime(*) 1 GM in NS 0.9% 50 ML* 50 ML IVPB SCH (05:05)
[2017-01-19] MEDS: D5W 1/2 NS KCl 20 Meq 1000 ML* 1,000 ML IV SCH (05:20)
[2017-01-19] MEDS: metroNIDAZOLE IV 500 MG/100ML* 500 MG/100 ML BAG IVPB SCH ×2 (05:48→18:13)
[2017-01-19 07:21] LABS: EGFR Non-African American 107.2 (>60)
[2017-01-19] MEDS: Citalopram TAB* 20 MG PO SCH (09:27)
[2017-01-19] MEDS: Amiodarone TAB* 200 MG PO SCH (09:27)
[2017-01-19] MEDS: Cyanocobalamin TAB* 500 MCG PO SCH (09:27)
[2017-01-19] MEDS: Omeprazole CAP* 20 MG PO SCH (09:27)
[2017-01-19] MEDS: Ferrous Sulfate TAB* 325 MG PO SCH ×2 (09:27→20:39)
--- NOTE | 2017-01-19 10:24 | PN ---
Progress Note - Progress Note Date of Service: 01/19/17 SOAP: Subjective: CC: bacteremia HPI: 86 year old man admitted with sepsis, abnl LFT, vomiting. Vomiting resolved, US today hurt, appetite improving, no diarrea fever or sweats. Objective: [] Vital Signs Temp 36.7 C 01/19/17 07:27 Pulse 59 01/19/17 07:27 Resp 16 01/19/17 07:27 BP 117/64 01/19/17 07:27 Pulse Ox 95 01/19/17 07:27 Intake & Output 01/18/17 01/19/17 01/19/17 18:59 06:59 18:59 Intake Total 1350 2961 0 Output Total 450 4790 Balance 900 -1829 0 Intake: IV Fluids 1521 D5W 1/2 NS 20 meq KCL 1521 IVPB 100 metronidazole 100 Oral 1350 1340 0 Output: Urine 450 4790 Other: Estimated Void Medium Large # Bowel Movements 0 0 # Voids 2 6 Gen:awake, no distress HEENT:MMM Heart:RRR no murmur Lungs:CTA BL Abd:+BS RUQ tender to deep palpation, no rebound Skin: No rash MSK: no spine tenderness Microbiology 01/16/17 04:11 Aerobic Blood Culture - Preliminary Blood Venous No Growth Day 3 Anaerobic Blood Culture - Preliminary No Growth Day 3 01/16/17 03:00 Aerobic Blood Culture - Final Blood Venous Strep Infantarius Ssp Coli Enterobacter Cloacae Complex Anaerobic Blood Culture - Final Enterobacter Cloacae Complex 01/16/17 09:45 Nasal Screen MRSA (PCR)(GENA) - Final Nasal Mrsa Negative Assessment: 1. sepsis, present on admission, resolved 2. Enterobacter and VGS bacteremia; common source is GI tract particularly biliary tree 3. transaminitis 4. AAA s/p stent Plan: 1. continue cefepime/flagyl here; levaquin 500 mg PO x10 days for discharge. FU GB pending Discussed with Dr Roland
--- NOTE | 2017-01-19 11:12 | RAD ---
Dictation: Follow-up cholecystitis. Real-time sonography of the right upper quadrant was performed. The liver is enlarged measuring 20 cm in length. The gallbladder is distended. Gallbladder wall thickening is noted. This measures up to 5 mm. This appears to be similar to that seen on January 16, 2017. No pericholecystic fluid or wall thickening is noted. No definite gallstones are identified. Sludge is noted in gallbladder. The common duct measures up to 6 mm. Right kidney measures 12.3 x 5.5 x 6.1 cm with a cyst in the midportion of the right kidney measuring up to 17 mm. No hydronephrosis is noted. Pancreas is not visualized. The patient is status post aortic stent graft repair. Inferior vena cava is otherwise unremarkable. IMPRESSION: Gallbladder wall thickening measuring 5 mm appears similar to that seen on January 16, 2017. No biliary ductal dilatation is noted.
--- NOTE | 2017-01-19 12:44 | PN ---
Progress Note - Progress Note Date of Service: 01/19/17 Note: Surgery Progress: S: Denies pain (other than 2/2 US probe). No N/V. Jolene diet. Passing flatus; no BM in past day or two. Still has somewhat of a prod cough, though improved. O: Vital Signs - 8 hr 01/19/17 01/19/17 01/19/17 07:27 08:00 11:11 Temperature 98.1 F 98.6 F Pulse Rate 59 62 Respiratory 16 19 16 Rate Blood Pressure 117/64 130/66 (mmHg) O2 Sat by Pulse 95 96 Oximetry Intake and Output Last 24 Hours 01/17/17 01/18/17 01/19/17 01/20/17 06:59 06:59 06:59 06:59 Intake Total 5182 1693 4311 0 Output Total 2900 3400 5240 Balance 2282 -1707 -929 0 Weight 217 lb 6.012 oz 217 lb 6.012 oz Intake: IV Fluids 2905 1053 1521 D5W 1/2 NS 20 meq KCL 8466 879 7870 NS (0.9%) 1075 metronidazole 100 IVPB 197 10 100 D5W 1/2 NS 20 meq KCL 197 NS (0.9%) 10 metronidazole 100 Oral 2080 630 2690 0 Output: Urine 2900 3400 5240 Other: Estimated Void Large # Bowel Movements 0 0 # Voids 6 Heart: reg Lungs: clear Abd: upper abd bulge (prob diastasis). No tenderness to palp. No peritoneal signs. No masses. repeat US: 5 mm GB wall; no pericholecystic fluid; normal ducts; sludge A/P: sepsis, prob r/t GBbiliary tract Prob home today (per Hosp) on po abx (Levaquin per Dr. Silver); will have him return to office for f/u w/ Dr. Reid.
--- NOTE | 2017-01-19 17:10 | PN ---
Subjective Date of Service: 01/19/17 Interval History: C/o mild cough, scant thick sputum. Social History: Findings - Lives with his son Angel who is his SDM. No alcohol or tobacco use. 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 Hx GI bleed 2015. Atrial fib, CAD, HTN, B12 deficiency, COPD, TARAH, hx TIA Objective Active Medications: Acetaminophen (Tylenol Tab*) 650 mg PO Q4H PRN PRN Reason: FEVER Albuterol (Ventolin Hfa Inhaler*) 2 puff INH Q4H PRN PRN Reason: SHORTNESS OF BREATH Amiodarone HCl (Cordarone Tab*) 200 mg PO DAILY [facility] Last Admin: 01/19/17 09:27 Dose: 200 mg Citalopram Hydrobromide (Celexa Tab*) 20 mg PO DAILY [facility] Last Admin: 01/19/17 09:27 Dose: 20 mg Cyanocobalamin (Vitamin B12 Tab*) 500 mcg PO DAILY [facility] Last Admin: 01/19/17 09:27 Dose: 500 mcg Ferrous Sulfate (Ferrous Sulfate Tab*) 325 mg PO BID [facility] Last Admin: 01/19/17 09:27 Dose: 325 mg Metronidazole/Sodium Chloride (Flagyl 500 Mg Ivpb*) 500 mg in 100 mls @ 100 mls /hr IVPB Q12H [facility] Last Admin: 01/19/17 05:48 Dose: 100 mls/hr Cefepime HCl 1 gm/ Sodium (Chloride) 50 mls @ 100 mls/hr IVPB Q12H [facility] Stop: 01/19/17 17:29 Last Admin: 01/19/17 05:05 Dose: 100 mls/hr Cefepime HCl (Maxipime 1 Gm In Dextrose Duplex (*)) 1 gm in 50 mls @ 100 mls/ hr IV Q12H [facility] Morphine Sulfate (Morphine Inj (Syringe)*) 1 mg IV Q1H PRN PRN Reason: PAIN Omeprazole (Prilosec Cap*) 20 mg PO DAILY [facility] Last Admin: 01/19/17 09:27 Dose: 20 mg Ondansetron HCl (Zofran Inj*) 4 mg IV Q4H PRN PRN Reason: NAUSEA Vital Signs - 8 hr 01/19/17 01/19/17 11:11 15:21 Temperature 98.6 F 97.6 F Pulse Rate 62 76 Respiratory 16 24 Rate Blood Pressure 130/66 108/60 (mmHg) O2 Sat by Pulse 96 97 Oximetry Oxygen Devices in Use Now: None Appearance: Alert, supine in bed. In good spirits. Looks comfortable. Eyes: - - icterus present Abdominal: NL Sounds; No Tenderness; No Distention, No Hepatosplenomegaly, - Extremities: No Edema, No Clubbing, Cyanosis, - Skin: No Rash or Ulcers, No Nodules or Sclerosis, - Neurological: Alert and Oriented x 3, NL Sensation Result Diagrams: 01/17/17 06:20 01/19/17 06:53 Microbiology and Other Data: Microbiology 01/16/17 09:45 Nasal Screen MRSA (PCR)(GENA) - Final Nasal Mrsa Negative Assess/Plan/Problems-Billing Assessment: - Patient Problems (1) Elevated LFTs Current Visit: Yes Status: Acute Code(s): R79.89 - OTHER SPECIFIED ABNORMAL FINDINGS OF BLOOD CHEMISTRY SNOMED Code(s): 843743616 Comment: Possible cholangitis. Continue cefepime and metro as per Dr. Silver. US abd showed GB distention and mild wall thickening. Low fat diet, IV fluids, antiemetic PRN, analgesic PRN. Bili, CRP both increased 01/19, will repeat 01/20. (2) Atrial fibrillation Current Visit: No Status: Acute Code(s): I48.91 - UNSPECIFIED ATRIAL FIBRILLATION SNOMED Code(s): 63030154 Comment: Continue amiodarone. Off anticoagulation since GI bleed 2015. Avoid ASA or other NSAID's. (3) Iron deficiency Current Visit: Yes Status: Acute Code(s): E61.1 - IRON DEFICIENCY SNOMED Code(s): 93849318 Comment: Clearly present in 2016, appears to be repleted. Stop iron, monitor. (4) Sepsis Current Visit: Yes Status: Acute Comment: Sepsis due to probable cholangitis. E. cloacae in 2 blood C&S bottle. Repeat lactate wnl. Stop IV fluids 01/19. (5) CAD (coronary artery disease) Current Visit: No Status: Acute Code(s): I25.10 - ATHSCL HEART DISEASE OF [place] CORONARY ARTERY W/O ANG PCTRS SNOMED Code(s): 03017632 Comment: Stable. No ASA as may have caused his GI bleed 2015. (6) DVT prophylaxis Current Visit: No Status: Acute Code(s): ADJ1291 - SNOMED Code(s): 746418163 Comment: Enoxaparin. Benefit outweighs risk. CBC 01/17. (7) COPD (chronic obstructive pulmonary disease) Current Visit: No Status: Acute Code(s): J44.9 - CHRONIC OBSTRUCTIVE PULMONARY DISEASE, UNSPECIFIED SNOMED Code(s): 66046649 Comment: Stable. Continue albuterol PRN. (8) HTN (hypertension) Current Visit: No Status: Chronic Code(s): I10 - ESSENTIAL (PRIMARY) HYPERTENSION SNOMED Code(s): 01075428 Comment: Continue to hold amlodipine.
[2017-01-19] MEDS ORDERED: guaiFENesin LIQ* 100 MG/5 ML UDC PO ONE (17:15)
[2017-01-19] MEDS: Cefepime 1 GM in Dextrose(*) 1 GM/50 ML BAG IV SCH (17:29)
[2017-01-19] MEDS: guaiFENesin LIQ* 100 MG/5 ML UDC PO SCH (20:38)
[2017-01-20] MEDS: Cefepime 1 GM in Dextrose(*) 1 GM/50 ML BAG IV SCH ×2 (05:21→18:00)
[2017-01-20] MEDS: metroNIDAZOLE IV 500 MG/100ML* 500 MG/100 ML BAG IVPB SCH ×2 (05:58→18:43)
[2017-01-20 07:35] LABS: ABS Basophils 0.1 10^3/ul (0-0.2); ABS Eosinophils 0.1 10^3/ul (0-0.6); ABS Lymphocytes 1.1 10^3/ul (1.0-4.8); ABS Monocytes 0.7 10^3/ul (0-0.8); ABS Neutrophils 3.8 10^3/ul (1.5-7.7); ABS Nucleated RBC 0.01 10^3/ul; Eosinophil % 1.5 % (0-6); Hematocrit 37 % (42-52); Hemoglobin 12.6 g/dl (14.0-18.0); Lymphocyte % 18.6 % (25-47); Mean Corpuscular HGB Conc 34 g/dl (31-36); Mean Corpuscular Hemoglobin 31 pg (27-31); Mean Corpuscular Volume 91 fL (80-94); Mean Platelet Volume 9 um3 (7.4-10.4); Nucleated Red Blood Cells % 0.2; Platelet Count 145 10^3/ul (150-450); Red Blood Count 4.09 10^6/ul (4.0-5.4); Red Cell Distribution Width 15 % (10.5-15); White Blood Count 5.7 10^3/ul (3.5-10.8)
[2017-01-20 08:54] LABS: EGFR Non-African American 94.6 (>60)
[2017-01-20] MEDS: Cyanocobalamin TAB* 500 MCG PO SCH (09:34)
[2017-01-20] MEDS: guaiFENesin LIQ* 100 MG/5 ML UDC PO SCH ×4 (09:34→21:57)
[2017-01-20] MEDS: Omeprazole CAP* 20 MG PO SCH (09:34)
[2017-01-20] MEDS: Citalopram TAB* 20 MG PO SCH (09:34)
[2017-01-20] MEDS: Ferrous Sulfate TAB* 325 MG PO SCH ×2 (09:35→21:57)
[2017-01-20] MEDS: Amiodarone TAB* 200 MG PO SCH (09:35)
--- NOTE | 2017-01-20 10:20 | PN ---
Progress Note - Progress Note Date of Service: 01/20/17 Note: I discussed the case with Dr. Reid. He plans on cholecystectomy 01/23/17. We will keep patient in the hospital on IV antibiotics until then.
--- NOTE | 2017-01-20 10:39 | PN ---
Subjective Date of Service: 01/20/17 Interval History: No c/o. Social History: Findings - Lives with his son Angel who is his SDM. No alcohol or tobacco use. 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 Hx GI bleed 2015. Atrial fib, CAD, HTN, B12 deficiency, COPD, TARAH, hx TIA Objective Active Medications: Acetaminophen (Tylenol Tab*) 650 mg PO Q4H PRN PRN Reason: FEVER Last Admin: 01/20/17 00:12 Dose: 650 mg Albuterol (Ventolin Hfa Inhaler*) 2 puff INH Q4H PRN PRN Reason: SHORTNESS OF BREATH Amiodarone HCl (Cordarone Tab*) 200 mg PO DAILY [facility] Last Admin: 01/20/17 09:35 Dose: 200 mg Citalopram Hydrobromide (Celexa Tab*) 20 mg PO DAILY [facility] Last Admin: 01/20/17 09:34 Dose: 20 mg Cyanocobalamin (Vitamin B12 Tab*) 500 mcg PO DAILY [facility] Last Admin: 01/20/17 09:34 Dose: 500 mcg Ferrous Sulfate (Ferrous Sulfate Tab*) 325 mg PO BID [facility] Last Admin: 01/20/17 09:35 Dose: 325 mg Guaifenesin (Robitussin*) 10 ml PO QID [facility] Last Admin: 01/20/17 09:34 Dose: 5 ml Metronidazole/Sodium Chloride (Flagyl 500 Mg Ivpb*) 500 mg in 100 mls @ 100 mls /hr IVPB Q12H [facility] Last Admin: 01/20/17 05:58 Dose: 100 mls/hr Cefepime HCl (Maxipime 1 Gm In Dextrose Duplex (*)) 1 gm in 50 mls @ 100 mls/ hr IV Q12H [facility] Last Admin: 01/20/17 05:21 Dose: 100 mls/hr Morphine Sulfate (Morphine Inj (Syringe)*) 1 mg IV Q1H PRN PRN Reason: PAIN Omeprazole (Prilosec Cap*) 20 mg PO DAILY [facility] Last Admin: 01/20/17 09:34 Dose: 20 mg Ondansetron HCl (Zofran Inj*) 4 mg IV Q4H PRN PRN Reason: NAUSEA Vital Signs - 8 hr 01/20/17 01/20/17 01/20/17 02:56 07:28 08:00 Temperature 98.4 F 98.0 F Pulse Rate 61 54 Respiratory 18 16 18 Rate Blood Pressure 126/65 120/57 (mmHg) O2 Sat by Pulse 97 96 Oximetry 01/20/17 09:36 Temperature Pulse Rate 86 Respiratory Rate Blood Pressure (mmHg) O2 Sat by Pulse Oximetry Oxygen Devices in Use Now: None Appearance: Alert, in a chair. In good spirits. Looks comfortable. Eyes: - - scleral icterus present. Abdominal: NL Sounds; No Tenderness; No Distention, No Hepatosplenomegaly, - Neurological: Alert and Oriented x 3, NL Sensation Result Diagrams: 01/20/17 07:01 01/20/17 07:01 Microbiology and Other Data: Microbiology 01/16/17 09:45 Nasal Screen MRSA (PCR)([facility]NA) - Final Nasal Mrsa Negative Assess/Plan/Problems-Billing Assessment: - Patient Problems (1) Elevated LFTs Current Visit: Yes Status: Acute Code(s): R79.89 - OTHER SPECIFIED ABNORMAL FINDINGS OF BLOOD CHEMISTRY SNOMED Code(s): 103955213 Comment: Possible cholangitis. Continue cefepime and metro as per Dr. Silver. US abd showed GB distention and mild wall thickening. Low fat diet, IV fluids, antiemetic PRN, analgesic PRN. Bili, CRP both stable as of 01/20. Discussed with Dr. Reid 01/20. Dr. Torres will see pt 01/20, consider ERCP and/or possible cholecystectomy 01/23. (2) Atrial fibrillation Current Visit: No Status: Acute Code(s): I48.91 - UNSPECIFIED ATRIAL FIBRILLATION SNOMED Code(s): 01818734 Comment: Continue amiodarone. Off anticoagulation since GI bleed 2015. Avoid ASA or other NSAID's. (3) Iron deficiency Current Visit: Yes Status: Acute Code(s): E61.1 - IRON DEFICIENCY SNOMED Code(s): 69507382 Comment: Clearly present in 2015, appears to be repleted. Stop iron, monitor. (4) Sepsis Current Visit: Yes Status: Acute Comment: Sepsis due to probable cholangitis. E. cloacae in 2 blood C&S bottle. Repeat lactate wnl. Stop IV fluids 01/19. (5) CAD (coronary artery disease) Current Visit: No Status: Acute Code(s): I25.10 - ATHSCL HEART DISEASE OF [place] CORONARY ARTERY W/O ANG PCTRS SNOMED Code(s): 27493212 Comment: Stable. No ASA as may have caused his GI bleed 2015. (6) DVT prophylaxis Current Visit: No Status: Acute Code(s): KYF1980 - SNOMED Code(s): 222824190 Comment: Enoxaparin. Benefit outweighs risk. CBC 01/17. (7) COPD (chronic obstructive pulmonary disease) Current Visit: No Status: Acute Code(s): J44.9 - CHRONIC OBSTRUCTIVE PULMONARY DISEASE, UNSPECIFIED SNOMED Code(s): 35731241 Comment: Stable. Continue albuterol PRN. (8) HTN (hypertension) Current Visit: No Status: Chronic Code(s): I10 - ESSENTIAL (PRIMARY) HYPERTENSION SNOMED Code(s): 81242457 Comment: Continue to hold amlodipine.
--- NOTE | 2017-01-20 11:40 | PN ---
Progress Note - Progress Note Date of Service: 01/20/17 SOAP: Subjective: Without complaint today--no abdominal pain, tolerating regular diet and is ambulating around the halls He is passing flatus. Objective: Intake & Output 01/18/17 01/19/17 01/20/17 01/21/17 06:59 06:59 06:59 06:59 Intake Total 1693 4311 2428 240 Output Total 3400 5240 2125 600 Balance -1707 -929 303 -360 Weight 217 lb 6.012 oz Intake: IV Fluids 1053 1521 883 D5W 1/2 NS 20 meq KCL 953 1521 718 metronidazole 100 165 IVPB 10 100 155 ABX - CEFEPIME 55 NS (0.9%) 10 metronidazole 100 100 Oral 630 2690 1390 240 Output: Urine 3400 5240 2125 600 Other: Estimated Void Large Large # Bowel Movements 0 0 0 # Voids 6 1 2 PEX: Comfortable Lungs are clear Abd is soft and non-distended. There is no tenderness or guarding noted. Bowel sounds are present and are normoactive. Laboratory Results - last 24 hr 01/20/17 01/20/17 07:01 07:01 WBC 5.7 RBC 4.09 Hgb 12.6 L Hct 37 L MCV 91 MCH 31 MCHC 34 RDW 15 Plt Count 145 L MPV 9 Neut % (Auto) 66.8 Lymph % (Auto) 18.6 L [place] % (Auto) 12.0 H Eos % (Auto) 1.5 Baso % (Auto) 1.1 Absolute Neuts (auto) 3.8 Absolute Lymphs (auto) 1.1 Absolute Monos (auto) 0.7 Absolute Eos (auto) 0.1 Absolute Basos (auto) 0.1 Absolute Nucleated RBC 0.01 Nucleated RBC % 0.2 Sodium 135 Potassium 3.9 Chloride 102 Carbon Dioxide 24 Anion Gap 9 BUN 6 Creatinine 0.78 Est GFR ( Amer) 121.7 Est GFR (Non-Af Amer) 94.6 BUN/Creatinine Ratio 7.7 L Glucose 92 Calcium 8.3 L Total Bilirubin 3.90 H AST 106 H ALT 65 H Alkaline Phosphatase 340 H C-Reactive Protein 78.31 H Total Protein 6.0 L Albumin 3.0 L Globulin 3.0 Albumin/Globulin Ratio 1.0 Assessment: Probable acalculous cholecystitis with persistent hyperbilirubinemia Elevated bilirubin due to cholestasis?, obstruction?, inflammation? Clinically he is doing well and has no abdominal pain and is tolerating regular diet but persistent elevation in LFT's is concerning. Plan: Continue IV anbx I discussed with Dr. Brian ROY today-he is going to see today. Not certain if ERCP is indicated but I think if LFT's stay elevated will tentatively plan laparoscopic cholecystectomy with cholangiogram on Monday. Discussed with Dr. Long and I will also discuss with son.
--- NOTE | 2017-01-20 21:46 | CONS ---
GASTROENTEROLOGY CONSULTATION DATE: 01/17/17 CONSULTING PHYSICIAN: Eliceer Colin. REASON FOR CONSULT: Gram negative sepsis in a man presenting with abnormal LFTs and yet no stones on gallbladder ultrasound or MRCP HISTORY OF PRESENT ILLNESS: This 86-year-old man felt ill after dinner and later in the evening began vomiting. He came to the emergency room, was found to have a temperature of 104.7. He was cultured, placed on antibiotics and admitted. Gram negatives grew out promptly. CT scan in the ER was nondiagnostic and on US GB wall marginally thick with no stones. MRCP did not show any common duct stone, though there was artifact from an adjacent recently placed aortic stent. HIDA scan did not visualize anything but the liver and no tracer was excreted. Today, the next day he is feeling much better. His temperature is down. The lab record shows an elevation of alkaline phosphatase on 01/10/17 apparently a routine f/u test. PAST MEDICAL HISTORY: 1. Aortic stent placed couple of months ago at [facility] 2. History of GI bleed in 2016 - EGD by Dr Dubose and 2 weeks later colonoscopy by Dr Coronado's inconclusive 3. History of atrial fibrillation - not on blood thinners. 4. Mild COPD. 5. Sleep apnea. HOME MEDICINES: includes Amiodarone, Pantoprazole, Ferrous sulfate. The history of the ferrous sulfate is not known. SOCIAL HISTORY: He is retired and - living with his son Angel, who operates a car repair shop. He has 3 sons. There are no grandchildren. REVIEW OF SYSTEMS: No history of rash, psoriasis, vasculitis, syncope, pacer, hematuria, recent fall or fracture, pancreatic disease, renal disease, diabetes , or bleeding. Outpt blood work 01/10/17 did show mild alkaline phosphatase elevation. PHYSICAL EXAM: He is a substantially overweight older man in no distress at this time. He is anicteric. He has no adenopathy. Lungs show bilaterally equal breath sounds. Heart sounds are regular. The abdomen is protuberant with normal bowel sounds, soft and without any focal tenderness. Genitalia normal. Extremities show trace edema. LABORATORY DATA: INR 1.11, creatinine 0.77, albumin 2.9, bilirubin 4. IMPRESSION: This 86-year-old man with significant vascular issues in his background, presented abruptly with a picture of sepsis and the elevated LFTs point to cholangitis and yet no stone or obstruction has been seen. He is for any biliary process uncharacteristically without pain at any point. Cholecystitis would be expected to give pain and or some tenderness in a neurologically normal 86 yr old. His course can be followed, though the presence of a stone starting this is inferred. Most likely he has passed it but that remains to be documented or at least confirm by a resolution of LFTs. The mild elevation of alk phos a week before admission is curious. He had no symptoms then either. [id number]/[facility] #: [id number] [facility]
[2017-01-21] MEDS: Cefepime 1 GM in Dextrose(*) 1 GM/50 ML BAG IV SCH ×2 (04:47→16:40)
[2017-01-21] MEDS: metroNIDAZOLE IV 500 MG/100ML* 500 MG/100 ML BAG IVPB SCH (05:34)
[2017-01-21] MEDS: guaiFENesin LIQ* 100 MG/5 ML UDC PO SCH ×4 (07:23→21:27)
[2017-01-21] MEDS: Omeprazole CAP* 20 MG PO SCH (07:24)
[2017-01-21] MEDS: Cyanocobalamin TAB* 500 MCG PO SCH (07:24)
[2017-01-21] MEDS: Ferrous Sulfate TAB* 325 MG PO SCH (07:24)
[2017-01-21] MEDS: Amiodarone TAB* 200 MG PO SCH (07:24)
[2017-01-21] MEDS: Citalopram TAB* 20 MG PO SCH (07:24)
[2017-01-21 08:24] LABS: Hematocrit 37 % (42-52); Hemoglobin 12.7 g/dl (14.0-18.0); Mean Corpuscular HGB Conc 35 g/dl (31-36); Mean Corpuscular Hemoglobin 32 pg (27-31); Mean Corpuscular Volume 91 fL (80-94); Mean Platelet Volume 9 um3 (7.4-10.4); Platelet Count 154 10^3/ul (150-450); Red Blood Count 4.03 10^6/ul (4.0-5.4); Red Cell Distribution Width 15 % (10.5-15); White Blood Count 6.1 10^3/ul (3.5-10.8)
[2017-01-21 08:36] LABS: EGFR Non-African American 107.2 (>60)
[2017-01-21 08:38] LABS: INR 1.14 (0.77-1.02)
--- NOTE | 2017-01-21 09:34 | PN ---
Progress Note - Progress Note Date of Service: 01/21/17 SOAP: Subjective: No complaints-no abdominal pain Objective: Temp Pulse Resp BP Pulse Ox 98.1 F 86 18 123/61 98 01/21/17 07:18 01/21/17 07:18 01/21/17 07:29 01/21/17 07:18 01/21/17 07:18 PEX: Comfortable Abd is soft and non-distended. Bowel sounds are present. No tenderness. Laboratory Results - last 24 hr 01/21/17 01/21/17 01/21/17 08:12 08:12 08:12 WBC 6.1 RBC 4.03 Hgb 12.7 L Hct 37 L MCV 91 MCH 32 H MCHC 35 RDW 15 Plt Count 154 MPV 9 INR (Anticoag Therapy) 1.14 H Sodium 132 L Potassium 3.6 Chloride 100 L Carbon Dioxide 23 Anion Gap 9 BUN 10 Creatinine 0.70 Est GFR ( Amer) 137.8 Est GFR (Non-Af Amer) 107.2 BUN/Creatinine Ratio 14.3 Glucose 114 H Calcium 8.6 Total Bilirubin 2.50 H Direct Bilirubin Indirect Bilirubin AST 85 H ALT 53 H Alkaline Phosphatase 374 H Total Protein 6.4 Albumin 3.0 L Globulin 3.4 Albumin/Globulin Ratio 0.9 L Lipase 46 01/21/17 08:12 WBC RBC Hgb Hct MCV MCH MCHC RDW Plt Count MPV INR (Anticoag Therapy) Sodium Potassium Chloride Carbon Dioxide Anion Gap BUN Creatinine Est GFR ( Amer) Est GFR (Non-Af Amer) BUN/Creatinine Ratio Glucose Calcium Total Bilirubin 2.50 H Direct Bilirubin 1.40 H Indirect Bilirubin 1.1 H AST 85 H ALT 52 Alkaline Phosphatase 371 H Total Protein 6.5 Albumin 3.0 L Globulin 3.5 Albumin/Globulin Ratio 0.9 L Lipase Assessment: Sepsis-resolved--apparent biliary source--no gallstones. LFT's improving No abdominal pain, no fever and normal WBC Plan: Discussed with Dr. Torres yesterday, with persistent elevation of bilirubin he was going to consider ERCP today however labs have improved and will await his decision regarding the procedure. If LFT's continue to improve would favor Iv abx and d/c home on oral antibiotics and holding on lap choly for now.
--- NOTE | 2017-01-21 15:16 | PN ---
Subjective Date of Service: 01/21/17 Interval History: Seen and examined this AM No complaints, no abdominal pain, has remained NPO overnight for potential ERCP but LFTs improving and procedure now on hold Social History: Findings - Lives with his son Angel who is his SDM. No alcohol or tobacco use. 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 Hx GI bleed 2015. Atrial fib, CAD, HTN, B12 deficiency, COPD, TARAH, hx TIA Objective Active Medications: Acetaminophen (Tylenol Tab*) 650 mg PO Q4H PRN PRN Reason: FEVER Last Admin: 01/20/17 00:12 Dose: 650 mg Albuterol (Ventolin Hfa Inhaler*) 2 puff INH Q4H PRN PRN Reason: SHORTNESS OF BREATH Amiodarone HCl (Cordarone Tab*) 200 mg PO DAILY [facility] Last Admin: 01/21/17 07:24 Dose: 200 mg Citalopram Hydrobromide (Celexa Tab*) 20 mg PO DAILY [facility] Last Admin: 01/21/17 07:24 Dose: 20 mg Cyanocobalamin (Vitamin B12 Tab*) 500 mcg PO DAILY [facility] Last Admin: 01/21/17 07:24 Dose: 500 mcg Ferrous Sulfate (Ferrous Sulfate Tab*) 325 mg PO DAILY [facility] Guaifenesin (Robitussin*) 10 ml PO QID [facility] Last Admin: 01/21/17 12:31 Dose: 10 ml Cefepime HCl (Maxipime 1 Gm In Dextrose Duplex (*)) 1 gm in 50 mls @ 100 mls/ hr IV Q12H [facility] Last Admin: 01/21/17 04:47 Dose: 100 mls/hr Morphine Sulfate (Morphine Inj (Syringe)*) 1 mg IV Q1H PRN PRN Reason: PAIN Omeprazole (Prilosec Cap*) 20 mg PO DAILY [facility] Last Admin: 01/21/17 07:24 Dose: 20 mg Ondansetron HCl (Zofran Inj*) 4 mg IV Q4H PRN PRN Reason: NAUSEA Vital Signs - 8 hr 01/21/17 01/21/17 01/21/17 07:18 07:29 11:16 Temperature 98.1 F 98.4 F Pulse Rate 86 66 Respiratory 18 18 18 Rate Blood Pressure 123/61 105/54 (mmHg) O2 Sat by Pulse 98 96 Oximetry Oxygen Devices in Use Now: None Appearance: NAD Ears/Nose/Mouth/Throat: NL Teeth, Lips, Gums, Clear Oropharnyx, Mucous Membranes Moist Neck: NL Appearance and Movements; NL JVP, Trachea Midline Respiratory: Symmetrical Chest Expansion and Respiratory Effort, Clear to Auscultation Cardiovascular: RRR Abdominal: NL Sounds; No Tenderness; No Distention, No Hepatosplenomegaly Lymphatic: No Cervical Adenopathy Neurological: Alert and Oriented x 3 Result Diagrams: 01/21/17 08:12 01/21/17 08:12 Microbiology and Other Data: Microbiology 01/16/17 09:45 Nasal Screen MRSA (PCR)([facility]) - Final Nasal Mrsa Negative Assess/Plan/Problems-Billing Assessment: 86 yo M h/o afib, GIB, CAD, HTN,COPD, TARAH p/w N/V found with elevated LFTs and enterobacter bacteremia in setting of suspected passed biliary stone - Patient Problems (1) Sepsis Comment: Sepsis with E. cloacae bacteremia. Suspect biliary source with possible passed stone ERCP or surgical intervention on hold since LFTs improving c/w cefepime (2) Elevated LFTs Comment: Complicated by enterobacter bacteremia Continue cefepime LFts now resolving. ERCP or potential cholecystectomy on hold trend LFTs pain free (3) Atrial fibrillation Comment: Continue amiodarone. Off anticoagulation since GI bleed 2015. Avoid ASA or other NSAID's. (4) CAD (coronary artery disease) Comment: Off ASA since GI bleed 2015. (5) COPD (chronic obstructive pulmonary disease) Comment: Stable. Continue albuterol PRN. (6) HTN (hypertension) Comment: Continue to hold amlodipine. (7) DVT prophylaxis Comment: Enoxaparin
[2017-01-21] MEDS: Enoxaparin(*) 40 MG/0.4 ML SYR SUBCUT SCH (15:52)
[2017-01-22 05:16] LABS: EGFR Non-African American 103.8 (>60)
[2017-01-22] MEDS: Cefepime 1 GM in Dextrose(*) 1 GM/50 ML BAG IV SCH (05:54)
[2017-01-22] MEDS: Cyanocobalamin TAB* 500 MCG PO SCH (07:15)
[2017-01-22] MEDS: Amiodarone TAB* 200 MG PO SCH (07:15)
[2017-01-22] MEDS: guaiFENesin LIQ* 100 MG/5 ML UDC PO SCH ×4 (07:16→21:54)
[2017-01-22] MEDS: Ferrous Sulfate TAB* 325 MG PO SCH (07:16)
[2017-01-22] MEDS: Omeprazole CAP* 20 MG PO SCH (07:16)
[2017-01-22] MEDS: Citalopram TAB* 20 MG PO SCH (07:16)
--- NOTE | 2017-01-22 09:45 | PN ---
Progress Note - Progress Note Date of Service: 01/22/17 Note: Surgery Mr. Cooney says he feels better. Vital Signs 01/21/17 01/21/17 01/21/17 11:16 15:00 18:52 Temperature 98.4 F 98.8 F 98.0 F Pulse Rate 66 62 61 Respiratory 18 18 20 Rate Blood Pressure 105/54 126/72 117/60 (mmHg) O2 Sat by Pulse 96 99 96 Oximetry 01/21/17 01/22/17 01/22/17 20:00 00:00 03:41 Temperature 99.2 F 98.7 F Pulse Rate 61 61 Respiratory 20 20 14 Rate Blood Pressure 129/63 125/64 (mmHg) O2 Sat by Pulse 97 97 Oximetry 01/22/17 01/22/17 07:15 08:51 Temperature 98.9 F Pulse Rate 68 Respiratory 16 16 Rate Blood Pressure 124/65 (mmHg) O2 Sat by Pulse 93 Oximetry Abd: protruberant, but soft, tender to deep palpation only. Intake & Output 01/21/17 01/22/17 01/22/17 22:59 06:59 14:59 Intake Total 500 660 Output Total 200 1520 Balance 300 -860 Intake: IV Fluids 50 50 ABX - CEFEPIME 50 50 IVPB 10 10 normal saline 10 10 Oral 440 600 Output: Urine 200 1520 Other: Estimated Void Medium # Bowel Movements 0 0 # Voids 1 1 Laboratory Results - last 24 hr 01/21/17 01/22/17 08:06 04:25 Sodium 129 L Potassium 3.8 Chloride 96 L Carbon Dioxide 27 Anion Gap 6 BUN 12 Creatinine 0.72 Est GFR ( Amer) 133.4 Est GFR (Non-Af Amer) 103.8 BUN/Creatinine Ratio 16.7 Glucose 90 Calcium 8.8 Ferritin 175.1 Total Bilirubin 2.10 H AST 87 H ALT 52 Alkaline Phosphatase 403 H Total Protein 6.7 Albumin 3.2 Globulin 3.5 Albumin/Globulin Ratio 0.9 L A/P: Improving, defer to GI regarding persistent hyperbilirubinemia. CLFoster
--- NOTE | 2017-01-22 13:58 | PN ---
Subjective Date of Service: 01/22/17 Interval History: Enjoyed breakfast but disliked the eggs Has no abdominal pain, N/V Social History: Findings - Lives with his son Angel who is his SDM. No alcohol or tobacco use. 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 Hx GI bleed 2015. Atrial fib, CAD, HTN, B12 deficiency, COPD, TARAH, hx TIA Objective Active Medications: Acetaminophen (Tylenol Tab*) 650 mg PO Q4H PRN PRN Reason: FEVER Last Admin: 01/20/17 00:12 Dose: 650 mg Albuterol (Ventolin Hfa Inhaler*) 2 puff INH Q4H PRN PRN Reason: SHORTNESS OF BREATH Amiodarone HCl (Cordarone Tab*) 200 mg PO DAILY [facility] Last Admin: 01/22/17 07:15 Dose: 200 mg Citalopram Hydrobromide (Celexa Tab*) 20 mg PO DAILY [facility] Last Admin: 01/22/17 07:16 Dose: 20 mg Cyanocobalamin (Vitamin B12 Tab*) 500 mcg PO DAILY [facility] Last Admin: 01/22/17 07:15 Dose: 500 mcg Enoxaparin Sodium (Lovenox(*)) 40 mg SUBCUT Q24H [facility] Last Admin: 01/21/17 15:52 Dose: 40 mg Ferrous Sulfate (Ferrous Sulfate Tab*) 325 mg PO DAILY [facility] Last Admin: 01/22/17 07:16 Dose: 325 mg Guaifenesin (Robitussin*) 10 ml PO QID [facility] Last Admin: 01/22/17 13:00 Dose: 10 ml Ciprofloxacin/Dextrose (Cipro 400 Mg Ivpremix(*)) 400 mg in 200 mls @ 200 mls/ hr IVPB Q12H [facility] Morphine Sulfate (Morphine Inj (Syringe)*) 1 mg IV Q1H PRN PRN Reason: PAIN Omeprazole (Prilosec Cap*) 20 mg PO DAILY [facility] Last Admin: 01/22/17 07:16 Dose: 20 mg Ondansetron HCl (Zofran Inj*) 4 mg IV Q4H PRN PRN Reason: NAUSEA Vital Signs - 8 hr 01/22/17 01/22/17 01/22/17 07:15 08:51 11:57 Temperature 98.9 F 97.6 F Pulse Rate 68 64 Respiratory 16 16 16 Rate Blood Pressure 124/65 113/55 (mmHg) O2 Sat by Pulse 93 98 Oximetry Oxygen Devices in Use Now: None Appearance: NAD, lying flat Eyes: No Scleral Icterus, PERRLA Ears/Nose/Mouth/Throat: Clear Oropharnyx, Mucous Membranes Moist Neck: NL Appearance and Movements; NL JVP, Trachea Midline Respiratory: Symmetrical Chest Expansion and Respiratory Effort, Clear to Auscultation Cardiovascular: NL Sounds; No Murmurs; No JVD, RRR Abdominal: NL Sounds; No Tenderness; No Distention Extremities: No Edema Skin: No Rash or Ulcers Neurological: Alert and Oriented x 3 Result Diagrams: 01/21/17 08:12 01/22/17 04:25 Microbiology and Other Data: Microbiology 01/16/17 09:45 Nasal Screen MRSA (PCR)([facility]) - Final Nasal Mrsa Negative Assess/Plan/Problems-Billing Assessment: 86 yo M h/o afib, GIB, CAD, HTN,COPD, TARAH p/w N/V found with elevated LFTs and enterobacter bacteremia in setting of suspected passed biliary stone - Patient Problems (1) Sepsis Comment: Sepsis with E. cloacae bacteremia. Suspect biliary source with possible passed stone ERCP or surgical intervention on hold since LFTs improving d/c cefepime and change to cipro in setting of persistent LFT abnormalities (2) Elevated LFTs Comment: Complicated by enterobacter bacteremia change cefepime to cipro Bili downtrending but alk phos increasing. ERCP or potential cholecystectomy on hold rewpeat US Gallbladder trend LFTs pain free (3) Atrial fibrillation Comment: Continue amiodarone. Off anticoagulation since GI bleed 2015. Avoid ASA or other NSAID's. check EKG while on fluoroquinolone with amio (4) CAD (coronary artery disease) Comment: Off ASA since GI bleed 2015. (5) COPD (chronic obstructive pulmonary disease) Comment: Stable. Continue albuterol PRN. (6) HTN (hypertension) Comment: Continue to hold amlodipine. (7) DVT prophylaxis Comment: Enoxaparin
[2017-01-22] MEDS: Ciprofloxacin 400MG IVPREMIX(* 400 MG/200 ML BAG IVPB SCH (14:53)
[2017-01-22] MEDS: Enoxaparin(*) 40 MG/0.4 ML SYR SUBCUT SCH (15:13)
[2017-01-23] MEDS: Ciprofloxacin 400MG IVPREMIX(* 400 MG/200 ML BAG IVPB SCH (02:15)
[2017-01-23 06:11] LABS: Hematocrit 35 % (42-52); Hemoglobin 11.9 g/dl (14.0-18.0); Mean Corpuscular HGB Conc 34 g/dl (31-36); Mean Corpuscular Hemoglobin 31 pg (27-31); Mean Corpuscular Volume 92 fL (80-94); Mean Platelet Volume 9 um3 (7.4-10.4); Platelet Count 192 10^3/ul (150-450); Red Blood Count 3.87 10^6/ul (4.0-5.4); Red Cell Distribution Width 15 % (10.5-15); White Blood Count 6.2 10^3/ul (3.5-10.8)
[2017-01-23 06:17] LABS: INR 1.03 (0.77-1.02)
[2017-01-23 06:28] LABS: EGFR Non-African American 105.4 (>60)
--- NOTE | 2017-01-23 08:47 | PN ---
Progress Note - Progress Note Date of Service: 01/23/17 SOAP: Subjective: Reports doing well, provide no complaints. Patient was seen and examined at bedside. Has been NPO for an ultrasound today. Appetite is good, moving his bowels. Denies abdominal pain, nausea, vomiting, fever or chills. Objective: Awake and alert, comfortable in bed. Vitals reviewed, afebrile Abdomen round, protuberant, non tender and non distended. No guarding or rigidity. Negative Joiner's sign. Labs noted Assessment: An 86 y/o male with elevated LFTs and thickened gallbladder wall on ultrasound a week ago, improving clinically. Plan: Await ultrasound findings today. Total bili dropped to 1.7, alk phosph down as well. No surgical concerns at this time Will continue to follow him up during this admission.
[2017-01-23] MEDS: Omeprazole CAP* 20 MG PO SCH (09:49)
[2017-01-23] MEDS: guaiFENesin LIQ* 100 MG/5 ML UDC PO SCH ×4 (09:49→20:50)
[2017-01-23] MEDS: Cyanocobalamin TAB* 500 MCG PO SCH (09:50)
[2017-01-23] MEDS: Amiodarone TAB* 200 MG PO SCH (09:50)
[2017-01-23] MEDS: Ferrous Sulfate TAB* 325 MG PO SCH (09:50)
[2017-01-23] MEDS: Citalopram TAB* 20 MG PO SCH (09:50)
--- NOTE | 2017-01-23 10:53 | PN ---
Progress Note - Progress Note Date of Service: 01/23/17 SOAP: Subjective: CC: abnl LFT HPI: 86 year old man admitted with sepsis, abnl LFT, vomiting. Vomiting resolved, appetite back to baseline. Had Liver US today which was not painful. No fever or rash or diarrhea. Objective: [] Vital Signs Temp 36.2 C 01/23/17 07:36 Pulse 62 01/23/17 07:36 Resp 16 01/23/17 08:00 BP 138/66 01/23/17 07:36 Pulse Ox 99 01/23/17 07:36 Intake & Output 01/22/17 01/23/17 01/23/17 18:59 06:59 18:59 Intake Total 1140 650 0 Output Total 565 2310 425 Balance 575 -1660 -425 Intake: IV Fluids 200 210 Ciproflaxin 200 210 IVPB 10 normal saline 10 Oral 930 440 0 Output: Urine 565 2310 425 Other: Estimated Void Medium # Bowel Movements 0 Estimated Stool Amount Large # Voids 1 1 Gen:awake, no distress HEENT:MMM Heart:RRR no murmur Lungs:CTA BL Abd:+BS no RUQ tender to deep palpation Skin: No rash Laboratory Results - last 24 hr 01/23/17 01/23/17 01/23/17 05:41 05:41 05:42 WBC 6.2 RBC 3.87 L Hgb 11.9 L Hct 35 L MCV 92 MCH 31 MCHC 34 RDW 15 Plt Count 192 MPV 9 INR (Anticoag Therapy) 1.03 H Sodium 133 Potassium 3.6 Chloride 100 L Carbon Dioxide 27 Anion Gap 6 BUN 11 Creatinine 0.71 Est GFR ( Amer) 135.6 Est GFR (Non-Af Amer) 105.4 BUN/Creatinine Ratio 15.5 Glucose 98 Calcium 8.5 L Total Bilirubin 1.70 H AST 84 H ALT 48 Alkaline Phosphatase 382 H Total Protein 6.4 Albumin 3.0 L Globulin 3.4 Albumin/Globulin Ratio 0.9 L Assessment: 1. sepsis, present on admission, resolved 2. Enterobacter and VGS bacteremia; common source is GI tract particularly biliary tree 3. transaminitis, improving 4. AAA s/p stent Plan: 1. Bactrim DS po BID x10 more days; will avoid FQ due to QT prolonging effects with amiodarone.
--- NOTE | 2017-01-23 11:20 | RAD ---
HISTORY: Abnormal LFTs COMPARISONS: January 19, 2017 TECHNIQUE: Multiple transverse and longitudinal ultrasound images were obtained of the right upper quadrant of the abdomen using grayscale and color Doppler imaging. FINDINGS: The study is limited by patient bowel gas. LIVER: The liver is diffusely enlarged measuring 22.5 cm. The liver is mildly echogenic. There is normal hepatopedal flow of the portal vein on Doppler imaging. BILIARY TREE: There is no intrahepatic or extrahepatic biliary dilatation. The common duct measures 0.6 cm. GALLBLADDER: The gallbladder is well-visualized. There is no cholelithiasis, gallbladder wall thickening, pericholecystic fluid, or sonographic Joiner sign. The gallbladder wall thickening noted on the previous study is not well visualized on the current examination. PANCREAS: The pancreas is obscured by overlying bowel gas. RIGHT KIDNEY: The right kidney is normal in shape, size, contour, and echogenicity. There is no appreciable hydronephrosis or nephrolithiasis. The right kidney measures 11.8 x 5 x 7.7 cm. AORTA AND IVC: The vessels are not well visualized. FLUID: There are no pleural effusions. There is no free fluid within the hepatorenal recess. OTHER FINDINGS: None. IMPRESSION: LIMITED STUDY. HEPATOMEGALY.
[2017-01-23] MEDS: Sulfamethox/Trimethoprim DS 800/160* TAB PO SCH ×2 (12:19→20:50)
[2017-01-23] MEDS: Enoxaparin(*) 40 MG/0.4 ML SYR SUBCUT SCH (17:42)
[2017-01-23 18:34] VITALS: BP 119/61
--- NOTE | 2017-01-24 13:33 | DS ---
CC: Eve Garrido NP * DISCHARGE SUMMARY: DATE OF ADMISSION: 01/16/17 DATE OF DISCHARGE: 01/23/17 PRIMARY CARE PROVIDER: Eve Garrido NP PRIMARY DIAGNOSIS: Suspected cholecystitis. SECONDARY DIAGNOSES: Include, 1. History of GI bleed. 2. Atrial fibrillation. 3. CAD. 4. Hypertension. 5. COPD. 6. TARAH. 7. History of TIA. PERTINENT IMAGING TESTS: Include MRCP, impression: It was a difficult exam because of aortic stent graft limiting evaluation. There is distended gallbladder with no definitive filling defects. No biliary ductal dilatation. No intrahepatic ductal dilatation. HIDA scan, impression: There is nonvisualization of the gallbladder and small bowel indicating hepatic dysfunction. PERTINENT LABORATORY DATA: Abnormal liver functions including total bilirubin peaked at 4.2, decreased at 1.7 on discharge. Transaminitis AST 84, ALT 48 on discharge. Alkaline phosphatase peaked at 403, decreasing to 382 on discharge. CONSULTATION DURING HOSPITAL STAY: Gastroenterology and Surgery. HISTORY OF PRESENT ILLNESS AND HOSPITAL COURSE: This is an 86-year-old man with past medical history as outlined in history of present illness on the day of admission, presented to the hospital with fevers as high as 104.7 as well as shaking chills and nausea and vomiting. There was concern for cholangitis. MRCP did not indicate ___obstruction but potential___ stricture and there was plan for ERCP, however, prior to procedure the bilirubin decreased. It is further observed and his LFTs continued to normalize. He remained afebrile. His leukocytosis resolved. He was treated with broad-spectrum antibiotics, narrowed to Bactrim oral on the day of discharge. Ultimately, it was thought the patient had biliary obstruction, passed the stone or sludge and spontaneously and improved with antibiotics. MEDICATIONS ON DISCHARGE: 1. Amiodarone 200 mg daily. 2. Albuterol 2 puffs every 4 hours as needed. 3. Ferrous sulfate 325 mg twice daily. 4. Vitamin B12 of 500 mcg daily. 5. Celexa 20 mg daily. 6. Vitamin D3 2000 units daily. 7. Advair 2 puffs twice daily. 8. Saw palmetto 500 mg twice daily. 9. Protonix 40 mg daily. 10. Amlodipine 10 mg daily. 11. Bactrim double strength 1 tab twice daily. FOLLOWUP: At followup, please: 1. Follow LFTs in 1 week to monitor for continued resolution. 2. The patient to follow up with Dr. Torres or Gastroenterology in approximately [address] Torres's request. Please ensure patient has adequate followup. 3. No other specific labs or vitals that need followup. Reasons to return to the hospital including but not limited to recurring or worsening symptoms including abdominal pain, nausea, vomiting, fevers, chills, night sweats, inability to tolerate food, inability to obtain medications, chest pain, shortness of breath, loss of consciousness, near loss of consciousness discussed with the patient and his sonAngel on telephone prior to his departure. TIME SPENT: Greater than 60 minutes were spent on this discharge of this patient, greater than half was spent [id number] with the patient. [id number]/[facility] #: [id number] ZA
== END 2017-01-23 21:05 | disposition home health service (06) | DRG 872 ==
LOC: ED 02:01 → ICU 07:26 → MED 01-17 15:08
PROVIDERS: ADMIT Internal Medicine; ATTEND Internal Medicine
DX: A41.9 Sepsis, unspecified organism (principal); I48.91 Unspecified atrial fibrillation; K80.11 Calculus of gallbladder with chronic cholecystitis with obstruction; J44.9 Chronic obstructive pulmonary disease, unspecified; I25.10 Atherosclerotic heart disease of native coronary artery without angina pectoris; G47.33 Obstructive sleep apnea (adult) (pediatric); I10 Essential (primary) hypertension; E53.8 Deficiency of other specified B group vitamins; E61.1 Iron deficiency; R79.89 Other specified abnormal findings of blood chemistry; G89.29 Other chronic pain; M54.9 Dorsalgia, unspecified; E78.00 Pure hypercholesterolemia, unspecified; N40.0 Benign prostatic hyperplasia without lower urinary tract symptoms; M19.012 Primary osteoarthritis, left shoulder; R74.0 Nonspecific elevation of levels of transaminase and lactic acid dehydrogenase [LDH]; Z86.73 Personal history of transient ischemic attack (TIA), and cerebral infarction without residual deficits; Z88.0 Allergy status to penicillin; Z87.442 Personal history of urinary calculi
CPT/HCPCS: 36415; 71010; 74020; 74177; 74181; 76376; 76705; 78226; 80053; 80076; 81003; 81015; 82150; 82248; 82270; 82728; 83605; 83690; 83735; 85025; 85027; 85610; 85730; 86140; 86301; 87040; 87077; 87186; 87205; 87641; 93005; 94660; 94760; A9270-GY; A9537; J0692; J0696; J0744; J1650; J1956; J2405; J3490; Q9967

== ENCOUNTER 2017-01-28 03:53 | Inpatient (IN) | payer MEDICARE, MEDICAID ==
[2017-01-28] MEDS ORDERED: NS 0.9% 1000 ML* 1,000 ML IV ONE (04:22)
[2017-01-28 05:42] LABS: INR 1.15 (0.77-1.02)
[2017-01-28 07:06] LABS: ABS Basophils 0 10^3/ul (0-0.2); ABS Eosinophils 0.2 10^3/ul (0-0.6); ABS Lymphocytes 0.5 10^3/ul (1.0-4.8); ABS Monocytes 0.5 10^3/ul (0-0.8); ABS Neutrophils 9.1 10^3/ul (1.5-7.7); ABS Nucleated RBC 0 10^3/ul; Eosinophil % 2.1 % (0-6); Hematocrit 34 % (42-52); Hemoglobin 11.7 g/dl (14.0-18.0); Lymphocyte % 5.1 % (25-47); Mean Corpuscular HGB Conc 35 g/dl (31-36); Mean Corpuscular Hemoglobin 31 pg (27-31); Mean Corpuscular Volume 89 fL (80-94); Mean Platelet Volume 9 um3 (7.4-10.4); Nucleated Red Blood Cells % 0; Platelet Count 218 10^3/ul (150-450); Red Blood Count 3.75 10^6/ul (4.0-5.4); Red Cell Distribution Width 14 % (10.5-15); White Blood Count 10.4 10^3/ul (3.5-10.8)
[2017-01-28 07:40] LABS: Urine Appearance Clear; Urine Blood 1+ (Negative); Urine Color Amber; Urine Ketones Negative (Negative); Urine Protein 1+(30 mg/dL) (Negative); Urine Specific Gravity 1.019 (1.010-1.030); Urine Urobilinogen Negative (Negative)
[2017-01-28] MEDS ORDERED: Acetaminophen TAB* 325 MG PO PRN (08:54)
[2017-01-28] MEDS ORDERED: Cefepime(*) 1 GM in NS 0.9% 50 ML* 50 ML IVPB SCH (09:00)
--- NOTE | 2017-01-28 09:17 | RAD ---
Indication: Syncope. CT of the brain was performed without IV contrast. Ventricular structures are midline. No midline shift is noted. The extraction spaces are unremarkable. There is central and cortical atrophy noted. There is no evidence of intracranial mass or hemorrhage. No other high or low density lesions are identified. Mastoid air cells and paranasal sinuses are otherwise unremarkable. IMPRESSION: Atrophy. No intracranial mass or hemorrhage is noted.
[2017-01-28] MEDS: Magnesium Oxide TAB* 400 MG PO SCH ×2 (10:30→20:49)
[2017-01-28] MEDS: NS 0.9% 1000 ML* 1,000 ML IV SCH (10:34)
[2017-01-28] MEDS: Cefepime 1 GM in Dextrose(*) 1 GM/50 ML BAG IV SCH ×2 (10:35→20:49)
--- NOTE | 2017-01-28 10:41 | RAD ---
Indication: Syncope. Single frontal view of the chest performed at 0446 hours was reviewed. Comparison is made with previous exam dated January 16, 2017. Minimal bibasilar atelectasis is noted. No pleural fluid is identified. No pneumothorax is noted. IMPRESSION: BIBASAL ATELECTASIS. NO PNEUMONIA IS NOTED.
[2017-01-28] MEDS ORDERED: Albuterol HFA INHALER* 8 gm MDI INH PRN (13:20)
[2017-01-28] MEDS: Amiodarone TAB* 200 MG PO SCH (16:14)
[2017-01-28] MEDS: Citalopram TAB* 20 MG PO SCH (16:15)
--- NOTE | 2017-01-28 17:22 | RAD ---
Indication: Cholecystitis. Real-time sonography of the right upper quadrant was performed. Comparison is made with previous exam dated January 19, 2017. Liver is normal in size measuring 18 cm in length. No focal lesions or intrahepatic ductal dilatation is noted. Gallbladder demonstrates no gallstones, pericholecystic fluid or wall thickening. Common duct is not measured. Right kidney measures 12.4 x 6.1 x 6.1 cm. The pancreas is not visualized. IMPRESSION: No evidence of cholelithiasis. Common duct not visualized.
[2017-01-28] MEDS: Mometasone/Formoter 200/5 MDI INH SCH (20:39)
[2017-01-28] MEDS: Ferrous Sulfate TAB* 325 MG PO SCH (20:49)
[2017-01-28] MEDS: guaiFENesin LIQ* 100 MG/5 ML UDC PO PRN (21:04)
[2017-01-29] MEDS: NS 0.9% 1000 ML* 1,000 ML IV SCH ×3 (01:37→22:52)
[2017-01-29 05:01] LABS: ABS Basophils 0 10^3/ul (0-0.2); ABS Eosinophils 0.3 10^3/ul (0-0.6); ABS Monocytes 0.5 10^3/ul (0-0.8); ABS Neutrophils 4.4 10^3/ul (1.5-7.7); ABS Nucleated RBC 0 10^3/ul; Eosinophil % 4.7 % (0-6); Hematocrit 33 % (42-52); Hemoglobin 11.4 g/dl (14.0-18.0); Lymphocyte % 16.2 % (25-47); Mean Corpuscular HGB Conc 34 g/dl (31-36); Mean Corpuscular Hemoglobin 31 pg (27-31); Mean Corpuscular Volume 90 fL (80-94); Mean Platelet Volume 9 um3 (7.4-10.4); Nucleated Red Blood Cells % 0; Platelet Count 196 10^3/ul (150-450); Red Blood Count 3.69 10^6/ul (4.0-5.4); Red Cell Distribution Width 14 % (10.5-15); White Blood Count 6.1 10^3/ul (3.5-10.8)
--- NOTE | 2017-01-29 05:09 | HP ---
CC: Eve Garrido NP, [facility] HISTORY AND PHYSICAL: DATE OF ADMISSION: 01/28/17 CHIEF COMPLAINT: Fall. HISTORY OF PRESENT ILLNESS: Mr. Cooney is an 86-year-old man with history of heart disease and COPD, who got up from his toilet overnight around 2 a.m. and felt weak in his knees. In any case, he fell in his bathroom and could not summon any help, and he was covered with feces. He tried to get up initially but decided to stay on the floor as his legs were too weak. His son was checking on him about every hour but found him about 90 minutes after this fall. The son could not get him up, so he summoned the EMS. The patient did not hit his head. He did bruise his right shoulder and buttock on the right. Patient denies any loss of consciousness. The patient denies any blood in the stool but did note blood in the toilet paper. The patient has not been doing well particularly the last few days. Prior to the fall yesterday, the patient had nausea, anorexia, and weakness. He also had some severe episodes of coughing yesterday and was seen in the primary care office for hospital follow- up. The patient was admitted to this hospital from 01/16/18 with sepsis suspected cholecystitis. There was a HIDA scan with no gallbladder uptake and CT with gallbladder wall thickening. However, after consultation with Infectious Disease and Surgery, patient was treated with antibiotics and improved and elected not to have surgery. Patient was also admitted to this hospital in August 2015 with a second episode of upper GI bleeding. The patient has had multiple GI workups without clear source of GI bleeding. PAST MEDICAL HISTORY: Includes coronary artery disease, history of NH, hypertension, history of TIA, aortic aneurysm, status post endovascular repair, atrial fibrillation, vitamin B12 deficiency, COPD, obstructive sleep apnea. PAST SURGICAL HISTORY: He has had AAA endograft but no open surgeries. MEDICATIONS ON ADMISSION: 1. Albuterol two puffs q. 4 hours p.r.n. 2. Amiodarone 200 mg p.o. every day. 3. Norvasc 10 mg p.o. every day. 4. Vitamin D3 2000 units p.o. every day. 5. Celexa 20 mg p.o. every day. 6. Vitamin B12 500 mcg p.o. every day. 7. Iron sulfate 325 mg p.o. b.i.d. 8. Advair HFA 230/21 two puffs inhaled b.i.d. 9. Protonix 40 mg p.o. every day. 10. Saw palmetto 500 mg p.o. b.i.d. 11. Bactrim one tab p.o. b.i.d. for 10 days after the last hospital stay. ALLERGIES: PENICILLIN. FAMILY HISTORY: Notable for father with COPD. No other family history can be gleaned from the discussion. 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 He is . He has 3 sons, he lives with his son, Angel, who is his healthcare proxy. He never smoked, attributes the COPD to working as a hutton. No alcohol or drug use. REVIEW OF SYSTEMS: Patient and the son report long-term anorexia over several months with loss of 15 pounds over the last 6 weeks. Notable on his recent lab review CA 19-9 was elevated on 01/23. Clearly someone was concerned of pancreatic cancer but nothing was seen on the CT. Patient denies any hemoptysis or shortness of breath but had severe cough yesterday. Patient denies any chest pain or palpitations. Patient denies any abdominal pain or diarrhea. Patient does report some auditory hallucinations at time when he is trying to go to sleep. Denies any memory loss. Remainder of the 14-point review of systems is negative other than mentioned in the HPI. PHYSICAL EXAMINATION GENERAL: Alert, in no acute distress. VITAL SIGNS: Temperature is 38.1, pulse is 86, respirations 18, blood pressure is 116/54, O2 sats 94%. HEENT: Head is normocephalic and atraumatic. Sclerae anicteric. Pupils are equal, round, and reactive to light and accommodation. Oropharynx is moist. No lesions. NECK: No JVD. No carotid bruits. No thyromegaly. LUNGS: Diminished throughout. No rales or wheezes. HEART: Regular rate and rhythm without murmurs or gallop. ABDOMEN: Soft, nontender with positive bowel sounds. No hepatosplenomegaly. EXTREMITIES: No peripheral edema. Dorsalis pedis pulses 1+ bilaterally. RECTAL: Reported by the emergency department physician of hemorrhoids and it was guaiac negative. No masses. NEUROLOGIC: Cranial nerves II through XII intact. Motor strength is 5/5 throughout. Deep tendon reflexes are symmetric. DIAGNOSTIC STUDIES/LAB DATA: Sodium 125, potassium 4.2, chloride 96, bicarb 21 , BUN 16, creatinine 1, glucose 109, calcium 8.3, magnesium 1.7, lactic acid 0.8. Alkaline phosphatase 239, AST 82, ALT 57, bilirubin 1.3, INR 1.15. PTT is 30.5. White count 10.4, hemoglobin 11.7, hematocrit 35%, platelets 218. Blood cultures from the previous admission showed Enterobacter cloacae sensitive to everything but Augmentin. Urinalysis is pending. EKG shows normal sinus rhythm, leftward axis deviation. No ischemic ST or T wave changes. Chest x-ray shows low volumes. No infiltrates or effusions. Head CT was negative for stroke or hemorrhage. ASSESSMENT AND PLAN: An 86-year-old man who had near syncope possibly due to weakness or vasovagal episode after getting up from the toilet. Different would certainly include arrhythmia, hypovolemia, seizure or vagal episode. Patient will be admitted to the hospital and observed on telemetry overnight for arrhythmias. The patient has hyponatremia, which on my assessment is related to being hypovolemic. This will be treated with IV crystalloids and reassessed in the morning. If he does not responded to normal saline, we may need to give a little bit of hypertonic saline. The patient also has recent gallbladder sepsis and possible chronic cholecystitis. This discharge and readmission may be proof that the gallbladder does need to come out. He was having anorexia and weight loss. I will repeat a gallbladder ultrasound and see if anything has worsened. He will have be switched to cefepime and not oral Bactrim for treatment of the bacteremia recently. The patient may need a surgical consult with an eye towards laparoscopic cholecystectomy to relieve the symptoms given that no other explanation for anorexia has been found. The patient has no apparent GI bleed and his hematocrit is at baseline. His guaiac is negative but he will be rechecked in the morning to assess for anemia. The patient has low magnesium and this will be repleted orally and rechecked in the morning. Code status is full. DVT prophylaxis will be sequential compression devices as he has had a GI bleed in the past. [id number]/[facility] #: [id number] [facility]
[2017-01-29 05:13] LABS: EGFR Non-African American 86.8 (>60)
[2017-01-29] MEDS: Cefepime 1 GM in Dextrose(*) 1 GM/50 ML BAG IV SCH ×2 (07:51→20:54)
[2017-01-29] MEDS: Magnesium Oxide TAB* 400 MG PO SCH ×2 (07:53→20:53)
[2017-01-29] MEDS: Citalopram TAB* 20 MG PO SCH (07:53)
[2017-01-29] MEDS: Cholecalciferol TAB* 1000 UNITS PO SCH (07:54)
[2017-01-29] MEDS: Amiodarone TAB* 200 MG PO SCH (07:54)
[2017-01-29] MEDS: Ferrous Sulfate TAB* 325 MG PO SCH ×2 (07:55→20:53)
[2017-01-29] MEDS: Omeprazole CAP* 20 MG PO SCH (07:55)
[2017-01-29] MEDS: amLODIPine TAB* 5 MG PO SCH (07:55)
[2017-01-29] MEDS: Cyanocobalamin TAB* 500 MCG PO SCH (07:56)
[2017-01-29] MEDS: Mometasone/Formoter 200/5 MDI INH SCH ×2 (08:52→20:14)
--- NOTE | 2017-01-29 16:39 | PN ---
Subjective Date of Service: 01/29/17 Interval History: Patient has better appetite today. Overall feels very fatigued. No abdominal pain. He has a long report about difficulties collecting stool sample last night. He has walked w/ walker in room. Family History: Unchanged from Admission Social History: Unchanged from Admission Past Medical History: Unchanged from Admission Objective Active Medications: Acetaminophen (Tylenol Tab*) 650 mg PO Q4H PRN PRN Reason: FEVER/HEADACHE Albuterol (Ventolin Hfa Inhaler*) 2 puff INH Q4H PRN PRN Reason: SHORTNESS OF BREATH Amiodarone HCl (Cordarone Tab*) 200 mg PO DAILY [facility] Last Admin: 01/29/17 07:54 Dose: 200 mg Amlodipine Besylate (Norvasc Tab*) 5 mg PO DAILY [facility] Last Admin: 01/29/17 07:55 Dose: 5 mg Cholecalciferol (Vitamin D Tab*) 2,000 units PO DAILY [facility] Last Admin: 01/29/17 07:54 Dose: 2,000 units Citalopram Hydrobromide (Celexa Tab*) 20 mg PO DAILY [facility] Last Admin: 01/29/17 07:53 Dose: 20 mg Cyanocobalamin (Vitamin B12 Tab*) 500 mcg PO DAILY [facility] Last Admin: 01/29/17 07:56 Dose: 500 mcg Ferrous Sulfate (Ferrous Sulfate Tab*) 325 mg PO BID [facility] Last Admin: 01/29/17 07:55 Dose: 325 mg Guaifenesin (Robitussin*) 5 ml PO Q4H PRN PRN Reason: COUGH Last Admin: 01/28/17 21:04 Dose: 5 ml Sodium Chloride (Ns 0.9% 1000 Ml*) 1,000 mls @ 100 mls/hr IV PER RATE [facility] Last Admin: 01/29/17 12:00 Dose: 100 mls/hr Cefepime HCl (Maxipime 1 Gm In Dextrose Duplex (*)) 1 gm in 50 mls @ 100 mls/ hr IV Q12HR [facility] Last Admin: 01/29/17 07:51 Dose: 100 mls/hr Magnesium Oxide (Magox 400 Tab*) 400 mg PO BID [facility] Last Admin: 01/29/17 07:53 Dose: 400 mg Mometasone Furoate/Formoterol Fumar (Dulera 200/5 Mdi*) 2 puff INH BID [facility] PRN Reason: Protocol Last Admin: 01/29/17 08:52 Dose: 2 puff Omeprazole (Prilosec Cap*) 20 mg PO DAILY@0730 [facility] Last Admin: 01/29/17 07:55 Dose: 20 mg Vital Signs - 8 hr 01/29/17 15:26 Temperature 36.4 C Pulse Rate 63 Respiratory 16 Rate Blood Pressure 124/64 (mmHg) O2 Sat by Pulse 99 Oximetry Oxygen Devices in Use Now: None Appearance: alert, sitting in chair, no distress Eyes: No Scleral Icterus Neck: No Thyroid Enlargement, Masses Respiratory: Symmetrical Chest Expansion and Respiratory Effort, Clear to Auscultation Cardiovascular: NL Sounds; No Murmurs; No JVD, RRR Abdominal: NL Sounds; No Tenderness; No Distention Neurological: Alert and Oriented x 3 Lines/Tubes/Other Access: Clean, Dry and Intact Peripheral IV Nutrition: Taking PO's Result Diagrams: 01/29/17 04:46 01/29/17 04:46 Additional Lab and Data: Laboratory Tests 01/28/17 01/29/17 05:26 04:46 Magnesium 1.7 L 1.8 L Diagnostic Imaging: RUQ U/S: negative Assess/Plan/Problems-Billing Assessment: 86 year old man w/ recent history cholangitis, readmitted after fall due to weakness - Patient Problems (1) Acute cholangitis Current Visit: Yes Status: Acute Priority: High Code(s): K83.0 - CHOLANGITIS SNOMED Code(s): 8134525 Comment: -Patient febrile on admission, has been afebrile since -continue cefipime due to enterobacter bacteremia -gallbladder ultrasound confirms he is improving w/o surgical intervention (2) Weakness generalized Current Visit: Yes Status: Acute Priority: Medium Code(s): R53.1 - WEAKNESS SNOMED Code(s): 33173895 Comment: -patient debilitated by recent illness -will ask physical therapy to see tomorrow -may need placement in assisted living (3) DVT prophylaxis Current Visit: No Status: Acute Priority: Low Code(s): MYG1639 - SNOMED Code(s): 967646866 Comment: -SCDs Status and Disposition: full inpatient stay, patient not safe for discharge today, will be here two midnights
--- NOTE | 2017-01-29 20:02 | CONS ---
GASTROENTEROLOGY CONSULTATION DATE : 01/29/17 CONSULTING PROVIDERS: Eve Garrido NP; Arash Moreno MD REASON FOR CONSULTATION: Failure to thrive with poor appetite and persisting elevation in LFTs. HISTORY OF PRESENT ILLNESS: This 86-year-old man discharged from hospital 6 days ago fainted in his bathroom and was weak and unable to get up. When he came to the emergency room, his initial temp was 101, but he was quickly afebrile and has remained afebrile. He was nonetheless placed on antibiotics since he had a sepsis presentation just 2 weeks ago. At home, hard to be sure about his status. He says he has been eating fine. Family is not around to corroborate. In the hospital, he has not been complaining of any abdominal pain and there has been no vomiting. He has been afebrile since admission. This morning, he ate 100% of his breakfast since he is not having any abdominal pain. In the ER, his sodium was 123. BUN was 10. PAST MEDICAL HISTORY: 1. Aortic aneurysm with placement of percutaneous stent. 2. Hypertension. 3. History of atrial fibrillation. 4. COPD. 5. Obesity. 6. GI bleed presentation - workup in 2016 in August with diverticulosis on colonoscopy and gastritis on gastroscopy, but subsequent to that heme-negative stool on this admission. PAST SURGICAL HISTORY: Aortic endograft but no open surgery. OUTPATIENT MEDICATIONS: Iron sulfate 325 b.i.d.; B12 500; vitamin D3; amiodarone 200; Norvasc 10; Protonix 40; Bactrim 1 b.i.d. for 10 days scheduled to last 3 more days. ALLERGIES: PENICILLIN. REVIEW OF SYSTEMS: A home, no vomiting, hematuria, lacerations, fever, rash. He does have the fall. He is somewhat constipated. PHYSICAL EXAM: In his room, he is sitting up, appearing well, afebrile. Vitals : Blood pressure 112/54, pulse 61. HEENT Exam: Shows no icterus. He has no adenopathy. His lungs are clear and heart sounds are regular. The abdomen is obese with normal active bowel sounds. There are no mechanical sounds. The abdomen was firm. Rectal: Deferred. Extremities: Show no edema. LABORATORY DATA: White count 6.1, hemoglobin 11.4, hematocrit 33, MCV 90. Bilirubin 1.3, alkaline phosphatase 279, ALT 57. BUN 10. IMPRESSION: This 86-year-old man has been weak and failing to thrive. The cause is not clear. He does not have any focal symptoms. His ability to function in his own circumstances is somewhat in question. He had an abrupt biliary sepsis 2 weeks ago, the presentation more consistent with the transit of a common duct stone through the system as opposed to cholecystitis, as he had no pain and his period of acute illness was relatively short. At this time, it is not clear if that is active (though probably not), although his liver function tests continued to be slightly abnormal in a cholestatic pattern. His LFTs had shown some sign of being abnormal 9 days prior to the presentation with the biliary sepsis, the reason for that is not clear. At the moment, he seems stable, afebrile with normal white count and is eating. He will need to be observed closely. The ultrasound done this admission does not show any bile duct dilation. [id number]/[facility] #: [id number] [facility] [place]
[2017-01-29] MEDS: guaiFENesin LIQ* 100 MG/5 ML UDC PO PRN (21:00)
[2017-01-30 05:58] LABS: ABS Basophils 0 10^3/ul (0-0.2); ABS Eosinophils 0.3 10^3/ul (0-0.6); ABS Lymphocytes 1.3 10^3/ul (1.0-4.8); ABS Monocytes 0.5 10^3/ul (0-0.8); ABS Neutrophils 3.4 10^3/ul (1.5-7.7); ABS Nucleated RBC 0 10^3/ul; Hematocrit 33 % (42-52); Hemoglobin 11.2 g/dl (14.0-18.0); Lymphocyte % 22.9 % (25-47); Mean Corpuscular HGB Conc 34 g/dl (31-36); Mean Corpuscular Hemoglobin 31 pg (27-31); Mean Corpuscular Volume 91 fL (80-94); Mean Platelet Volume 9 um3 (7.4-10.4); Nucleated Red Blood Cells % 0; Platelet Count 194 10^3/ul (150-450); Red Blood Count 3.64 10^6/ul (4.0-5.4); Red Cell Distribution Width 14 % (10.5-15); White Blood Count 5.5 10^3/ul (3.5-10.8)
[2017-01-30 06:17] LABS: EGFR Non-African American 86.8 (>60)
[2017-01-30] MEDS: Mometasone/Formoter 200/5 MDI INH SCH ×2 (07:02→20:27)
[2017-01-30] MEDS: Cefepime 1 GM in Dextrose(*) 1 GM/50 ML BAG IV SCH ×2 (08:08→21:16)
[2017-01-30] MEDS: Ferrous Sulfate TAB* 325 MG PO SCH ×2 (08:09→21:16)
[2017-01-30] MEDS: Omeprazole CAP* 20 MG PO SCH (08:09)
[2017-01-30] MEDS: Cyanocobalamin TAB* 500 MCG PO SCH (08:10)
[2017-01-30] MEDS: Magnesium Oxide TAB* 400 MG PO SCH ×2 (08:10→21:16)
[2017-01-30] MEDS: amLODIPine TAB* 5 MG PO SCH (08:10)
[2017-01-30] MEDS: Citalopram TAB* 20 MG PO SCH (08:10)
[2017-01-30] MEDS: Cholecalciferol TAB* 1000 UNITS PO SCH (08:10)
[2017-01-30] MEDS: Amiodarone TAB* 200 MG PO SCH (08:10)
[2017-01-30] MEDS: NS 0.9% 1000 ML* 1,000 ML IV SCH (08:19)
[2017-01-30] MEDS ORDERED: Hydrocortisone SUPP* 25 MG SUPP (2.5%) PR PRN (16:32)
--- NOTE | 2017-01-30 16:39 | PN ---
Subjective Date of Service: 01/30/17 Interval History: Patient able to walk w/ walker in hallway. Also getting to bathroom when needed. Has painful hemorrhoids. Denies abdo pain, nausea, has some early satiety. Family History: Unchanged from Admission Social History: Unchanged from Admission Past Medical History: Unchanged from Admission Objective Active Medications: Acetaminophen (Tylenol Tab*) 650 mg PO Q4H PRN PRN Reason: FEVER/HEADACHE Albuterol (Ventolin Hfa Inhaler*) 2 puff INH Q4H PRN PRN Reason: SHORTNESS OF BREATH Amiodarone HCl (Cordarone Tab*) 200 mg PO DAILY [facility] Last Admin: 01/30/17 08:10 Dose: 200 mg Amlodipine Besylate (Norvasc Tab*) 5 mg PO DAILY [facility] Last Admin: 01/30/17 08:10 Dose: 5 mg Cholecalciferol (Vitamin D Tab*) 2,000 units PO DAILY [facility] Last Admin: 01/30/17 08:10 Dose: 2,000 units Citalopram Hydrobromide (Celexa Tab*) 20 mg PO DAILY [facility] Cyanocobalamin (Vitamin B12 Tab*) 500 mcg PO DAILY [facility] Last Admin: 01/30/17 08:10 Dose: 500 mcg Ferrous Sulfate (Ferrous Sulfate Tab*) 325 mg PO BID [facility] Last Admin: 01/30/17 08:09 Dose: 325 mg Guaifenesin (Robitussin*) 5 ml PO Q4H PRN PRN Reason: COUGH Last Admin: 01/29/17 21:00 Dose: 5 ml Hydrocortisone (Anusol Hc Supp*) 25 mg [place] BID PRN PRN Reason: hemorrhoids Cefepime HCl (Maxipime 1 Gm In Dextrose Duplex (*)) 1 gm in 50 mls @ 100 mls/ hr IV Q12HR [facility] Last Admin: 01/30/17 08:08 Dose: 100 mls/hr Magnesium Oxide (Magox 400 Tab*) 400 mg PO BID [facility] Last Admin: 01/30/17 08:10 Dose: 400 mg Mometasone Furoate/Formoterol Fumar (Dulera 200/5 Mdi*) 2 puff INH BID [facility] PRN Reason: Protocol Last Admin: 01/30/17 07:02 Dose: 2 puff Omeprazole (Prilosec Cap*) 20 mg PO DAILY@0730 [facility] Last Admin: 01/30/17 08:09 Dose: 20 mg Vital Signs - 8 hr 01/30/17 11:21 Temperature 36.3 C Pulse Rate 71 Respiratory 14 Rate Blood Pressure 138/67 (mmHg) O2 Sat by Pulse 98 Oximetry Oxygen Devices in Use Now: None Appearance: conversant, no distress Respiratory: Symmetrical Chest Expansion and Respiratory Effort, Clear to Auscultation Cardiovascular: NL Sounds; No Murmurs; No JVD Abdominal: No Hepatosplenomegaly - distended, soft, NT, - Skin: No Rash or Ulcers Neurological: Alert and Oriented x 3 Lines/Tubes/Other Access: Clean, Dry and Intact Peripheral IV Nutrition: Taking PO's Result Diagrams: 01/30/17 05:44 01/30/17 05:44 Diagnostic Imaging: RUQ U/S: negative Assess/Plan/Problems-Billing Assessment: 86 year old man w/ recent history cholangitis, readmitted after fall due to weakness - Patient Problems (1) Acute cholangitis Current Visit: Yes Status: Acute Priority: High Code(s): K83.0 - CHOLANGITIS SNOMED Code(s): 1660203 Comment: -Patient febrile on admission, has been afebrile since -continue cefipime due to enterobacter bacteremia -discussed case with Dr. Torres. We are trying to follow conservative approach (2) Weakness generalized Current Visit: Yes Status: Acute Priority: Medium Code(s): R53.1 - WEAKNESS SNOMED Code(s): 00961178 Comment: -patient debilitated by recent illness -will ask physical therapy to see tomorrow -may need placement in subacute rehab (3) DVT prophylaxis Current Visit: No Status: Acute Priority: Low Code(s): DXX7220 - SNOMED Code(s): 250848766 Comment: -SCDs (4) Hyponatremia Current Visit: Yes Status: Acute Priority: Medium Code(s): E87.1 - HYPO- OSMOLALITY AND HYPONATREMIA SNOMED Code(s): 60129410 Comment: -sodium lower today -cutting down dose Celexa, can cause SIADH -taking POs well, stopping IVF -continue magnesium supplements for low Mg Status and Disposition: full inpatient stay, patient not safe for discharge today, needs SNF assessment tomorrow
[2017-01-31] MEDS: Mometasone/Formoter 200/5 MDI INH SCH ×2 (08:50→21:09)
[2017-01-31] MEDS: Omeprazole CAP* 20 MG PO SCH (09:23)
[2017-01-31] MEDS: Ferrous Sulfate TAB* 325 MG PO SCH ×2 (09:23→21:39)
[2017-01-31] MEDS: Citalopram TAB* 10 MG PO SCH (09:23)
[2017-01-31] MEDS: Amiodarone TAB* 200 MG PO SCH (09:23)
[2017-01-31] MEDS: Cholecalciferol TAB* 1000 UNITS PO SCH (09:24)
[2017-01-31] MEDS: amLODIPine TAB* 5 MG PO SCH (09:24)
[2017-01-31] MEDS: Cefepime 1 GM in Dextrose(*) 1 GM/50 ML BAG IV SCH ×2 (09:24→21:39)
[2017-01-31] MEDS: Magnesium Oxide TAB* 400 MG PO SCH ×2 (09:24→21:39)
[2017-01-31] MEDS: Cyanocobalamin TAB* 500 MCG PO SCH (09:24)
--- NOTE | 2017-01-31 10:57 | PN ---
Subjective Date of Service: 01/31/17 Interval History: Patient seen and examined at bedside. Patient ambulated with PT htis morning. Reports some soft stools. Denies pain, fever, SOB. Family History: Unchanged from Admission Social History: Unchanged from Admission Past Medical History: Unchanged from Admission Objective Active Medications: Acetaminophen (Tylenol Tab*) 650 mg PO Q4H PRN Albuterol (Ventolin Hfa Inhaler*) 2 puff INH Q4H PRN Amiodarone HCl (Cordarone Tab*) 200 mg PO DAILY [facility] Amlodipine Besylate (Norvasc Tab*) 5 mg PO DAILY [facility] Cholecalciferol (Vitamin D Tab*) 2,000 units PO DAILY [facility] Citalopram Hydrobromide (Celexa Tab*) 10 mg PO DAILY [facility] Cyanocobalamin (Vitamin B12 Tab*) 500 mcg PO DAILY [facility] Ferrous Sulfate (Ferrous Sulfate Tab*) 325 mg PO BID [facility] Guaifenesin (Robitussin*) 5 ml PO Q4H PRN Hydrocortisone (Anusol Hc Supp*) 25 mg [place] BID PRN Cefepime HCl (Maxipime 1 Gm In Dextrose Duplex (*)) 1 gm in 50 mls @ 100 mls/ hr IV Q12HR [facility] Magnesium Oxide (Magox 400 Tab*) 400 mg PO BID [facility] Mometasone Furoate/Formoterol Fumar (Dulera 200/5 Mdi*) 2 puff INH BID [facility] Omeprazole (Prilosec Cap*) 20 mg PO DAILY@0730 [facility] Vital Signs Temp Pulse Resp BP Pulse Ox 97.3 F 75 18 129/66 98 01/31/17 07:32 01/31/17 08:36 01/31/17 08:36 01/31/17 07:32 01/31/17 08:36 Oxygen Devices in Use Now: None Appearance: sitting up in bed, NAD Eyes: No Scleral Icterus, PERRLA Ears/Nose/Mouth/Throat: NL Teeth, Lips, Gums Neck: NL Appearance and Movements; NL JVP Respiratory: Symmetrical Chest Expansion and Respiratory Effort, Clear to Auscultation Cardiovascular: NL Sounds; No Murmurs; No JVD, RRR Extremities: No Edema Skin: No Rash or Ulcers Neurological: Alert and Oriented x 3 Lines/Tubes/Other Access: Clean, Dry and Intact Peripheral IV Nutrition: Taking PO's Result Diagrams: 01/30/17 05:44 01/30/17 05:44 Additional Lab and Data: . Diagnostic Imaging: . Assess/Plan/Problems-Billing 86 year old man w/ recent history cholangitis, readmitted after fall due to weakness with hyponatremia and deconditioning - Patient Problems (1) Acute cholangitis Comment: Continue IV cefepime for Enterobacter bacteremia. Can transition to PO Bactrim at discharge. Appreciate GI input. Continue conservative approach. Continues to be afebrile without pain. (2) Hyponatremia Comment: Sodium recheck pending for today. Celexa decreased. Check Urine Na, Cr, Osm and serum Osm. Hold further IVF as patient taking POs adequately. (3) Weakness generalized Comment: Severe deconditioning d/t recent illness and hospital stay. PT/OT eval and possible PMRU vs JASBIR. (4) Atrial fibrillation Comment: Continue amiodarone. Off anticoagulation since GI bleed 2016. Avoid ASA or other NSAID's. (5) COPD (chronic obstructive pulmonary disease) Comment: Stable. Continue albuterol PRN. (6) HTN (hypertension) Comment: Amlodipine decreased to 5mg already. Will decrease to 2.5mg. (7) DVT prophylaxis Comment: SCD given hx of GI bleed. (8) Full code status Status and Disposition: Inpatient. PMRU vs [facility]AS[facility]IR at discharge.
[2017-01-31] MEDS: Enoxaparin(*) 30 MG/0.3 ML SYR SUBCUT SCH (11:20)
[2017-01-31 14:13] LABS: EGFR Non-African American 107.2 (>60)
[2017-01-31] MEDS: guaiFENesin LIQ* 100 MG/5 ML UDC PO PRN (21:39)
[2017-02-01 05:15] LABS: ABS Basophils 0.1 10^3/ul (0-0.2); ABS Eosinophils 0.1 10^3/ul (0-0.6); ABS Lymphocytes 1.4 10^3/ul (1.0-4.8); ABS Monocytes 0.7 10^3/ul (0-0.8); ABS Neutrophils 2.7 10^3/ul (1.5-7.7); ABS Nucleated RBC 0.01 10^3/ul; Eosinophil % 2.2 % (0-6); Hematocrit 34 % (42-52); Hemoglobin 11.4 g/dl (14.0-18.0); Lymphocyte % 28.8 % (25-47); Mean Corpuscular HGB Conc 34 g/dl (31-36); Mean Corpuscular Hemoglobin 31 pg (27-31); Mean Corpuscular Volume 91 fL (80-94); Mean Platelet Volume 9 um3 (7.4-10.4); Nucleated Red Blood Cells % 0.2; Platelet Count 220 10^3/ul (150-450); Red Cell Distribution Width 14 % (10.5-15)
[2017-02-01 05:27] LABS: EGFR Non-African American 112.7 (>60)
[2017-02-01] MEDS: Mometasone/Formoter 200/5 MDI INH SCH ×2 (08:33→19:32)
[2017-02-01] MEDS: Ferrous Sulfate TAB* 325 MG PO SCH ×2 (09:01→21:16)
[2017-02-01] MEDS: Magnesium Oxide TAB* 400 MG PO SCH ×2 (09:01→21:16)
[2017-02-01] MEDS: Cyanocobalamin TAB* 500 MCG PO SCH (09:01)
[2017-02-01] MEDS: Cefepime 1 GM in Dextrose(*) 1 GM/50 ML BAG IV SCH ×2 (09:01→21:17)
[2017-02-01] MEDS: guaiFENesin LIQ* 100 MG/5 ML UDC PO PRN ×2 (09:01→23:34)
[2017-02-01] MEDS: Amiodarone TAB* 200 MG PO SCH (09:01)
[2017-02-01] MEDS: Omeprazole CAP* 20 MG PO SCH (09:01)
[2017-02-01] MEDS: Citalopram TAB* 10 MG PO SCH (09:01)
[2017-02-01] MEDS: Cholecalciferol TAB* 1000 UNITS PO SCH (09:01)
[2017-02-01] MEDS: amLODIPine TAB* 5 MG PO SCH (09:02)
--- NOTE | 2017-02-01 10:24 | PN ---
Subjective Date of Service: 02/01/17 Interval History: Patient seen and examined at bedside. Patient offers no acute complaints. He states he ambulated with assistance with PT yesterday. Denies CP, SOB, fevers, abd pain. Family History: Unchanged from Admission Social History: Unchanged from Admission Past Medical History: Unchanged from Admission Objective Active Medications: Acetaminophen (Tylenol Tab*) 650 mg PO Q4H PRN Albuterol (Ventolin Hfa Inhaler*) 2 puff INH Q4H PRN Amlodipine Besylate (Norvasc Tab*) 2.5 mg PO DAILY [facility] Cholecalciferol (Vitamin D Tab*) 2,000 units PO DAILY [facility] Citalopram Hydrobromide (Celexa Tab*) 10 mg PO DAILY [facility] Cyanocobalamin (Vitamin B12 Tab*) 500 mcg PO DAILY [facility] Enoxaparin Sodium (Lovenox(*)) 30 mg SUBCUT Q24H [facility] Ferrous Sulfate (Ferrous Sulfate Tab*) 325 mg PO BID [facility] Guaifenesin (Robitussin*) 5 ml PO Q4H PRN Hydrocortisone (Anusol Hc Supp*) 25 mg SC BID PRN Cefepime HCl (Maxipime 1 Gm In Dextrose Duplex (*)) 1 gm in 50 mls @ 100 mls/ hr IV Q12HR [facility] Magnesium Oxide (Magox 400 Tab*) 400 mg PO BID [facility] Mometasone Furoate/Formoterol Fumar (Dulera 200/5 Mdi*) 2 puff INH BID [facility] Omeprazole (Prilosec Cap*) 20 mg PO DAILY@0730 [facility] Vital Signs Temp Pulse Resp BP Pulse Ox 97.5 F 56 20 121/65 95 02/01/17 07:46 02/01/17 07:46 02/01/17 07:46 02/01/17 07:46 02/01/17 07:46 Oxygen Devices in Use Now: None Appearance: sitting up in bed, NAD Eyes: No Scleral Icterus, PERRLA Ears/Nose/Mouth/Throat: NL Teeth, Lips, Gums Neck: NL Appearance and Movements; NL JVP Respiratory: Symmetrical Chest Expansion and Respiratory Effort, Clear to Auscultation Cardiovascular: NL Sounds; No Murmurs; No JVD, RRR Abdominal: NL Sounds; No Tenderness; No Distention Extremities: No Edema Skin: No Rash or Ulcers Neurological: Alert and Oriented x 3, NL Muscle Strength and Tone Lines/Tubes/Other Access: Clean, Dry and Intact Peripheral IV Result Diagrams: 02/01/17 05:07 02/01/17 05:07 Additional Lab and Data: . Diagnostic Imaging: . Assess/Plan/Problems-Billing 86 year old man w/ recent history cholangitis, readmitted after fall due to weakness with hyponatremia and deconditioning - Patient Problems (1) Acute cholangitis Comment: Continue IV cefepime for Enterobacter bacteremia. Can transition to PO Bactrim at discharge. Appreciate GI input. Continue conservative approach. Continues to be afebrile without pain. (2) Hyponatremia Comment: Slowly improving. Serum and urine osm pending. 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 (3) Weakness generalized Comment: Severe deconditioning d/t recent illness and hospital stay. PT/OT eval and possible PMRU vs JASBIR. (4) Atrial fibrillation Comment: Continue amiodarone. Off anticoagulation since GI bleed 2016. Avoid ASA or other NSAID's. (5) COPD (chronic obstructive pulmonary disease) Comment: Stable. Continue albuterol PRN. (6) HTN (hypertension) Comment: Continue Norvasc at 2.5mg (7) DVT prophylaxis Comment: Lovenox. (8) Full code status Status and Disposition: Inpatient. PMRU vs JASBIR at discharge.
[2017-02-01] MEDS: Enoxaparin(*) 30 MG/0.3 ML SYR SUBCUT SCH (12:00)
[2017-02-02 06:16] LABS: EGFR Non-African American 97.5 (>60)
[2017-02-02] MEDS: Omeprazole CAP* 20 MG PO SCH (07:45)
[2017-02-02] MEDS: Mometasone/Formoter 200/5 MDI INH SCH ×2 (09:13→21:10)
[2017-02-02] MEDS: Cholecalciferol TAB* 1000 UNITS PO SCH (09:37)
[2017-02-02] MEDS: Ferrous Sulfate TAB* 325 MG PO SCH ×2 (09:37→20:42)
[2017-02-02] MEDS: Magnesium Oxide TAB* 400 MG PO SCH ×2 (09:37→20:42)
[2017-02-02] MEDS: Citalopram TAB* 10 MG PO SCH (09:37)
[2017-02-02] MEDS: Amiodarone TAB* 200 MG PO SCH (09:37)
[2017-02-02] MEDS: Cyanocobalamin TAB* 500 MCG PO SCH (09:37)
[2017-02-02] MEDS: Cefepime 1 GM in Dextrose(*) 1 GM/50 ML BAG IV SCH ×2 (09:37→20:42)
[2017-02-02] MEDS: amLODIPine TAB* 5 MG PO SCH (09:37)
--- NOTE | 2017-02-02 10:25 | PN ---
Subjective Date of Service: 02/02/17 Interval History: Patient seen and examined at bedside. Denies fever, chills, shortness of breath at rest, chest discomfort, ABD pain, N/V/D. Pt states that he feels "winded when he is up and ambulating", but this is improving. Pt is agreeable to going to rehab. Family History: Unchanged from Admission Social History: Unchanged from Admission Past Medical History: Unchanged from Admission Objective Active Medications: Acetaminophen (Tylenol Tab*) 650 mg PO Q4H PRN Reason: FEVER/HEADACHE Albuterol (Ventolin Hfa Inhaler*) 2 puff INH Q4H PRN Reason: SHORTNESS OF BREATH Amiodarone HCl (Cordarone Tab*) 200 mg PO DAILY RENALDO Amlodipine Besylate (Norvasc Tab*) 2.5 mg PO DAILY RENALDO Cholecalciferol (Vitamin D Tab*) 2,000 units PO DAILY RENALDO Citalopram Hydrobromide (Celexa Tab*) 10 mg PO DAILY RENALDO Cyanocobalamin (Vitamin B12 Tab*) 500 mcg PO DAILY RENALDO Enoxaparin Sodium (Lovenox(*)) 30 mg SUBCUT Q24H RENALDO Ferrous Sulfate (Ferrous Sulfate Tab*) 325 mg PO BID RENALDO Guaifenesin (Robitussin*) 5 ml PO Q4H PRN Reason: COUGH Hydrocortisone (Anusol Hc Supp*) 25 mg [place] BID PRN Reason: hemorrhoids Cefepime HCl (Maxipime 1 Gm In Dextrose Duplex (*)) 1 gm in 50 mls @ 100 mls/ hr IV Q12HR RENALDO Magnesium Oxide (Magox 400 Tab*) 400 mg PO BID RENALDO Mometasone Furoate/Formoterol Fumar (Dulera 200/5 Mdi*) 2 puff INH BID RENALDO Omeprazole (Prilosec Cap*) 20 mg PO DAILY@0730 [facility] Vital Signs - 8 hr 02/02/17 02/02/17 07:34 07:55 Temperature 97.7 F Pulse Rate 57 Respiratory 20 20 Rate Blood Pressure 117/63 (mmHg) O2 Sat by Pulse 97 Oximetry Oxygen Devices in Use Now: None Appearance: NAD, laying in bed Ears/Nose/Mouth/Throat: Mucous Membranes Moist Respiratory: Symmetrical Chest Expansion and Respiratory Effort, Clear to Auscultation Cardiovascular: NL Sounds; No Murmurs; No JVD Abdominal: NL Sounds; No Tenderness; No Distention Extremities: No Edema Skin: No Rash or Ulcers Neurological: Alert and Oriented x 3, NL Muscle Strength and Tone Lines/Tubes/Other Access: Clean, Dry and Intact Peripheral IV - site benign Nutrition: Taking PO's Result Diagrams: 02/01/17 05:07 02/02/17 05:13 Assess/Plan/Problems-Billing Mr. Cooney is an 86 year old man w/ recent history of cholangitis, readmitted after a fall due to weakness with hyponatremia and deconditioning. - Patient Problems (1) Acute cholangitis Code(s): K83.0 - CHOLANGITIS SNOMED Code(s): 3067774 Comment: - Afebrile and no leukocytosis. - Continue conservative approach. - Appreciate GI input. - Continue IV cefepime for Enterobacter bacteremia. - Can transition to PO Bactrim at discharge. (2) Hyponatremia Code(s): E87.1 - HYPO-OSMOLALITY AND HYPONATREMIA SNOMED Code(s): 09005073 Comment: - Slowly improving. - Suspect primary polydipsia (Urine osm - 465, Urine NA - 54, Serum osm - 277). - Start 1500 ml fluid restriction. (3) Weakness generalized Code(s): R53.1 - WEAKNESS SNOMED Code(s): 76081663 Comment: - Severe deconditioning d/t recent illness and hospital stay. - Continue PT/OT and suspect he will need JASBIR. (4) Atrial fibrillation Code(s): I48.91 - UNSPECIFIED ATRIAL FIBRILLATION SNOMED Code(s): 19274121 Comment: - Off anticoagulation since GI bleed 2015. Avoid ASA or other NSAID's. - Continue amiodarone. (5) CAD (coronary artery disease) Code(s): I25.10 - ATHSCL HEART DISEASE OF [place] CORONARY ARTERY W/O ANG PCTRS SNOMED Code(s): 21257368 Comment: - Off ASA since GI bleed 2015. (6) COPD (chronic obstructive pulmonary disease) Code(s): J44.9 - CHRONIC OBSTRUCTIVE PULMONARY DISEASE, UNSPECIFIED SNOMED Code(s): 98090673 Comment: - NO sign of acute exacerbation at this time. - Continue albuterol PRN. (7) HTN (hypertension) Code(s): I10 - ESSENTIAL (PRIMARY) HYPERTENSION SNOMED Code(s): 15513138 Comment: - Normotensive. - Continue Norvasc. (8) DVT prophylaxis Code(s): PMA8926 - SNOMED Code(s): 436997147 Comment: - Lovenox. (9) Full code status Code(s): Z78.9 - OTHER SPECIFIED HEALTH STATUS SNOMED Code(s): 512290672 Status and Disposition: Inpatient. Plan for discharge to home vs JASBIR at discharge.
[2017-02-02] MEDS: Enoxaparin(*) 30 MG/0.3 ML SYR SUBCUT SCH (11:43)
[2017-02-02] MEDS: guaiFENesin LIQ* 100 MG/5 ML UDC PO PRN (22:02)
[2017-02-03 06:59] LABS: EGFR Non-African American 91.9 (>60)
[2017-02-03] MEDS: Omeprazole CAP* 20 MG PO SCH (07:29)
[2017-02-03] MEDS: Mometasone/Formoter 200/5 MDI INH SCH (07:35)
[2017-02-03] MEDS: Cefepime 1 GM in Dextrose(*) 1 GM/50 ML BAG IV SCH (08:57)
[2017-02-03] MEDS: Cyanocobalamin TAB* 500 MCG PO SCH (09:00)
[2017-02-03] MEDS: amLODIPine TAB* 5 MG PO SCH (09:00)
[2017-02-03] MEDS: Magnesium Oxide TAB* 400 MG PO SCH (09:00)
[2017-02-03] MEDS: Cholecalciferol TAB* 1000 UNITS PO SCH (09:00)
[2017-02-03] MEDS: Citalopram TAB* 10 MG PO SCH (09:01)
[2017-02-03] MEDS: Ferrous Sulfate TAB* 325 MG PO SCH (09:01)
[2017-02-03] MEDS: Amiodarone TAB* 200 MG PO SCH (09:01)
--- NOTE | 2017-02-03 11:10 | PN ---
Subjective Date of Service: 02/03/17 Interval History: Patient seen and examined at bedside. Denies fever, chills, chest discomfort, N/ V/D. Pt states that his shortness of breath with exertion is improving. Pt is agreeable to discharge to rehab today. Family History: Unchanged from Admission Social History: Unchanged from Admission Past Medical History: Unchanged from Admission Objective Active Medications: Acetaminophen (Tylenol Tab*) 650 mg PO Q4H PRN Reason: FEVER/HEADACHE Albuterol (Ventolin Hfa Inhaler*) 2 puff INH Q4H PRN Reason: SHORTNESS OF BREATH Amiodarone HCl (Cordarone Tab*) 200 mg PO DAILY RENALDO Amlodipine Besylate (Norvasc Tab*) 2.5 mg PO DAILY RENALDO Cholecalciferol (Vitamin D Tab*) 2,000 units PO DAILY RENALDO Citalopram Hydrobromide (Celexa Tab*) 10 mg PO DAILY RENALDO Cyanocobalamin (Vitamin B12 Tab*) 500 mcg PO DAILY RENALDO Enoxaparin Sodium (Lovenox(*)) 30 mg SUBCUT Q24H RENALDO Ferrous Sulfate (Ferrous Sulfate Tab*) 325 mg PO BID RENALDO Guaifenesin (Robitussin*) 5 ml PO Q4H PRN Reason: COUGH Hydrocortisone (Anusol Hc Supp*) 25 mg MD BID PRN Reason: hemorrhoids Cefepime HCl (Maxipime 1 Gm In Dextrose Duplex (*)) 1 gm in 50 mls @ 100 mls/ hr IV Q12HR RENALDO Magnesium Oxide (Magox 400 Tab*) 400 mg PO BID RENALDO Mometasone Furoate/Formoterol Fumar (Dulera 200/5 Mdi*) 2 puff INH BID RENALDO Omeprazole (Prilosec Cap*) 20 mg PO DAILY@0730 [facility] Vital Signs - 8 hr 02/03/17 02/03/17 02/03/17 03:17 07:10 08:43 Temperature 98.3 F 97.3 F Pulse Rate 75 74 Respiratory 16 16 20 Rate Blood Pressure 130/70 108/51 (mmHg) O2 Sat by Pulse 98 95 Oximetry Oxygen Devices in Use Now: None Appearance: NAD, laying in bed Ears/Nose/Mouth/Throat: Mucous Membranes Moist Respiratory: Symmetrical Chest Expansion and Respiratory Effort, Clear to Auscultation Cardiovascular: NL Sounds; No Murmurs; No JVD, RRR Abdominal: NL Sounds; No Tenderness; No Distention Extremities: No Edema Skin: No Rash or Ulcers Neurological: Alert and Oriented x 3, NL Muscle Strength and Tone Lines/Tubes/Other Access: Clean, Dry and Intact Peripheral IV - site benign Nutrition: Taking PO's Result Diagrams: 02/01/17 05:07 02/03/17 06:30 Diagnostic Imaging: . Assess/Plan/Problems-Billing Mr. Cooney is an 86 year old man w/ recent history of cholangitis, readmitted after a fall due to weakness with hyponatremia and deconditioning. - Patient Problems (1) Acute cholangitis Code(s): K83.0 - CHOLANGITIS SNOMED Code(s): 4072209 Comment: - Afebrile and no leukocytosis. - Continue conservative approach. - Appreciate GI input. - Stop ABX and will get blood cultures today. (2) Hyponatremia Code(s): E87.1 - HYPO-OSMOLALITY AND HYPONATREMIA SNOMED Code(s): 55395149 Comment: - Slowly improving. - Suspect primary polydipsia (Urine osm - 465, Urine NA - 54, Serum osm - 277). - Start 1500 ml fluid restriction. (3) Weakness generalized Code(s): R53.1 - WEAKNESS SNOMED Code(s): 89033700 Comment: - Severe deconditioning d/t recent illness and hospital stay. - Continue PT/OT and suspect he will need JASBIR. (4) Atrial fibrillation Code(s): I48.91 - UNSPECIFIED ATRIAL FIBRILLATION SNOMED Code(s): 69142225 Comment: - Off anticoagulation since GI bleed 2015. Avoid ASA or other NSAID's. - Continue amiodarone. (5) CAD (coronary artery disease) Code(s): I25.10 - ATHSCL HEART DISEASE OF [place] CORONARY ARTERY W/O ANG PCTRS SNOMED Code(s): 82986294 Comment: - Off ASA since GI bleed 2015. (6) COPD (chronic obstructive pulmonary disease) Code(s): J44.9 - CHRONIC OBSTRUCTIVE PULMONARY DISEASE, UNSPECIFIED SNOMED Code(s): 15789417 Comment: - No sign of acute exacerbation at this time. - Continue albuterol PRN. (7) HTN (hypertension) Code(s): I10 - ESSENTIAL (PRIMARY) HYPERTENSION SNOMED Code(s): 28644524 Comment: - Normotensive. - Continue Norvasc. (8) DVT prophylaxis Code(s): LQG8382 - SNOMED Code(s): 981099861 Comment: - Lovenox. (9) Full code status Code(s): Z78.9 - OTHER SPECIFIED HEALTH STATUS SNOMED Code(s): 197015007 Status and Disposition: Inpatient. Stable for discharge to [facility].
[2017-02-03] MEDS: Enoxaparin(*) 30 MG/0.3 ML SYR SUBCUT SCH (11:46)
[2017-02-03 12:11] VITALS: BP 115/59
--- NOTE | 2017-02-03 12:48 | DS ---
CC: Eve Garrido NP; Dr. Torres* DISCHARGE SUMMARY: DATE OF ADMISSION: 01/28/17 DATE OF DISCHARGE: 02/03/17 ATTENDING PHYSICIAN: Dr. Reyes Esquivel* (dictated by Yuko Chaidez NP). PRIMARY CARE PROVIDER: Eve Garrido NP PRIMARY DIAGNOSES: 1. Near syncope. 2. Generalized weakness. 3. Cholangitis. 4. Hyponatremia. SECONDARY DIAGNOSES: 1. Atrial fibrillation. 2. Coronary artery disease. 3. Chronic obstructive pulmonary disease. 4. Hypertension. CONSULTATIONS WHILE IN THE HOSPITAL: Dr. Daniel Torres with Gastroenterology. STUDIES WHILE IN THE HOSPITAL: 1. Chest x-ray on 01/28/17. Radiologist impression: Bibasilar atelectasis. No pneumonia noted. 2. Brain CT on 01/28/17. Radiologist impression: Atrophy. No intracranial mass or hemorrhages noted. 3. Gallbladder ultrasound on 01/28/17. Radiologist impression: No evidence of cholelithiasis. Common duct not visualized. DISCHARGE MEDICATIONS: Allyn Medication: 1. Acetaminophen 650 mg oral every 4 hours as needed for fever or pain. 2. Anusol suppository 25 mg rectal twice daily as needed for hemorrhoids. 3. Magnesium oxide 400 mg oral twice daily. Changed Home Medications: 1. Amlodipine decreased to 2.5 mg oral daily. 2. Celexa decreased to 10 mg oral daily. Continued Home Medications: 1. Asif palmetto 500 mg oral twice daily. 2. Vitamin B12 500 micrograms oral daily. 3. Albuterol HFA inhaler 2 puffs inhalation every 4 hours as needed for shortness of breath. 4. Vitamin D3 2000 units oral daily. 5. Ferrous sulfate 325 mg oral twice daily. 6. Amiodarone 200 mg oral daily. 7. Protonix 40 mg oral daily. 8. Advair HFA 230/21 two puffs inhalation twice daily. HISTORY OF PRESENT ILLNESS/HOSPITAL COURSE: Mr. Cooney is an 86-year-old male with past medical history significant for heart disease, COPD, who presented to the emergency room after getting up from the toilet and feeling weak in his knees. The patient ended up falling in his bathroom and could not summon help. He was unable to get up. He decided to stay on the floor as his legs were too weak. The patient's son had been checking on him about every hour and found him about 90 minutes after his fall on the floor in the bathroom. His son could not get him up and he summoned EMS. The patient denied hitting his head. He did bruise his right shoulder and buttock. He denied any loss of consciousness. He reported some blood on the toilet paper due to his hemorrhoids. Patient felt as though he had not been doing well for several days and had a fall on the day prior to his presentation. He reported nausea, anorexia and weakness. He also noted a cough. It should be noted that previously patient had been admitted from 01/16/17 until 01/23/17 at which time he was hospitalized for sepsis, suspected cholecystitis. He had a HIDA scan showing no gallbladder uptake and a CT with gallbladder wall thickening. He was seen in consultation by Infectious Disease and Surgery, and it was felt he was best treated with antibiotics. The patient elected not to have surgery. Also note that patient had previously been hospitalized for an upper GI bleed in 2016, and had no clear source of his GI bleeding. While in the Emergency Room the patient had labs remarkable for hyponatremia with a sodium of 125. He also had previous blood cultures showing a Enterobacter coli sensitive to everything but Augmentin. He had an EKG showing a sinus rhythm. He had a brain CT showing no acute findings in addition to a chest x-ray with no acute findings. Hospitalists were asked to evaluate the patient for admission. While in the hospital the patient was placed back on IV cefepime due to his previous bacteremia with a plan to transition him back to oral Bactrim at discharge if needed. He was seen in consultation by Dr. Torres with Gastroenterology who recommended continuing his Bactrim or cefepime for 3 more days and then discontinue. Patient was found to have hyponatremia. 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 He was placed on a fluid restriction and his sodium improved. As far as his generalized weakness, he seemed to be severely deconditioned related to his recent illness and hospital stay. He had physical therapy and occupational therapy who felt he would benefit from rehab. Mr. Cooney is stable for discharge to [facility] swing status today. PHYSICAL EXAMINATION: Vital signs are as follows: Temperature 97.3, heart rate 74, respiratory rate 20, O2 sat 95% on room air, blood pressure 108/51. DISCHARGE PLAN: Mr. Cooney will be discharged to [facility]. Activity as tolerated. He should be on a regular diet with a 1500 mL fluid restriction daily. 1. As far as his hyponatremia I recommend continuing to follow his sodium and make sure that his hyponatremia resolves. 2. For his acute cholangitis he has completed a course of IV and p.o. antibiotics. In total he has received 11 days of IV cefepime and 5 days of p.o. Bactrim. The patient should be seen in followup with Dr. Torres in 1 month. Also recommend to repeat followup LFTs to be sure that they are improving. 3. For the patient's atrial fibrillation he has been off anticoagulation since the GI bleed in 2016 and recommended to avoid NSAIDs and aspirin. He has been continued on his amiodarone. 4. For his COPD he has had no signs of an exacerbation. He has been continued on his home inhalers. 5. Hypertension. Patient was hypotensive. His Norvasc has been decreased to 2.5 mg down from 10 mg daily. 6. The patient's Celexa has been decreased to 10 mg due to his hyponatremia that was felt this could be contributing to it. 7. Patient should have physical therapy and occupational therapy evals and treatment. The patient should return to the emergency room for any chest pain, shortness of breath. This is a summarized report of a complex medical history and hospital stay. For further details please see the entire medical record. TIME SPENT: Time for this discharge was approximately 50 minutes, greater than half of that was spent with the patient face to face, discussing discharge plans and instructions. CONDITION ON DISCHARGE: Stable. Reviewed by MICHELLE ROMERO 02/06/2017 1815 [id number]/[id number] #: [id number] ZA
== END 2017-02-03 13:15 | DRG 445 ==
LOC: ED 03:53 → INTOOBSV 07:09 → ICU 07:09 → MEDTELE 07:41 → OBSVTOIN 01-29 15:03
PROVIDERS: ADMIT Internal Medicine; ATTEND Internal Medicine
DX: K83.0 Cholangitis (principal); E22.2 Syndrome of inappropriate secretion of antidiuretic hormone; E86.0 Dehydration; R78.81 Bacteremia; I48.91 Unspecified atrial fibrillation; B96.89 Other specified bacterial agents as the cause of diseases classified elsewhere; E86.1 Hypovolemia; E53.8 Deficiency of other specified B group vitamins; E66.9 Obesity, unspecified; J98.11 Atelectasis; R55 Syncope and collapse; G47.33 Obstructive sleep apnea (adult) (pediatric); I10 Essential (primary) hypertension; J44.9 Chronic obstructive pulmonary disease, unspecified; I25.10 Atherosclerotic heart disease of native coronary artery without angina pectoris; R63.0 Anorexia; R63.4 Abnormal weight loss; W17.89XA Other fall from one level to another, initial encounter; R53.1 Weakness; R62.7 Adult failure to thrive; K57.30 Diverticulosis of large intestine without perforation or abscess without bleeding; K64.9 Unspecified hemorrhoids; R63.1 Polydipsia; I25.2 Old myocardial infarction; Z86.73 Personal history of transient ischemic attack (TIA), and cerebral infarction without residual deficits; Z88.0 Allergy status to penicillin; Z82.5 Family history of asthma and other chronic lower respiratory diseases; Z68.31 Body mass index [BMI] 31.0-31.9, adult; Y92.002 Bathroom of unspecified non-institutional (private) residence as the place of occurrence of the external cause
CPT/HCPCS: 36415; 70450; 71010; 76705; 80048; 80053; 81003; 81015; 82272; 82550; 82570; 83605; 83735; 83930; 83935; 84300; 84484; 85025; 85610; 85730; 86140; 86850; 86900; 86901; 87040; 93005; 94640; 94760; A9270-GY; G0378; J0692; J1650

== ENCOUNTER 2019-05-04 17:34 | Emergency (ER) | payer MEDICARE, MEDICAID ==
--- NOTE | 2019-05-04 17:52 | ED ---
Head Injury - HPI Summary HPI Summary: 89 year old male presents with scalp laceration today. He states he stood up off the toilet and his pants got caught underneath him and he ended up falling onto his face and hit his head on the door. He states he did not pass out. He is not on blood thinners. The area continues to bleed. He believes his tetanus is up-to-date. Denies any nausea or vomiting. No dizziness. No change in vision. No chest pain shortness breath. No hip pain. No other injury. fall was a mechanical fall. - History Of Current Complaint Chief Complaint: EDHeadInjury Stated Complaint: FALL/HEAD LACERATION PER EMS Time Seen by Provider: 05/04/19 17:37 Pain Intensity: 4 - Allergies/Home Medications Allergies/Adverse Reactions: Allergies Allergy/AdvReac Type Severity Reaction Status Date / Time MS Penicillins [Penicillins] Allergy Intermediate Hives Verified 05/04/19 17:49 Home Medications: Home Medications Albuterol HFA INHALER* [Ventolin HFA Inhaler*] 2 puff INH Q4H PRN 04/15/13 [ History Confirmed 01/28/17] Cholecalciferol (Vitamin D3) [Vitamin D3] 2,000 unit PO DAILY 04/15/13 [History Confirmed 01/28/17] Cyanocobalamin TAB* [Vitamin B12 TAB*] 500 mcg PO DAILY 04/15/13 [History Confirmed 01/28/17] Saw [place] ([place]ren[place] Repens) [Saw [place]] 500 mg PO BID 04/15/13 [History Confirmed 01/28/17] Amiodarone TAB* [Cordarone Tab*] 200 mg PO DAILY 08/19/15 [History Confirmed ] Ferrous Sulfate TAB* 325 mg PO BID 08/19/15 [History Confirmed 01/28/17] Pantoprazole TAB * [Protonix TAB*] 40 mg PO DAILY #30 tab 08/23/15 [Rx Confirmed 01/28/17] Fluticas/Salmet 230/21 HFA(NF) [Advair HFA 23O/21 (NF)] 2 puff INH BID 01/16/17 [History Confirmed 01/28/17] Acetaminophen TAB* [Tylenol TAB*] 650 mg PO Q4H PRN tab 02/03/17 [Rx] Citalopram TAB* [Celexa TAB*] 10 mg PO DAILY tab 02/03/17 [Rx] Hydrocortisone SUPP* [Anusol Hc Supp*] 25 mg SC BID PRN supp 02/03/17 [Rx] Magnesium Oxide TAB* [MagOx 400 TAB*] 400 mg PO BID tab 02/03/17 [Rx] amLODIPine TAB* [Norvasc 5 mg TAB*] 2.5 mg PO DAILY tab 02/03/17 [Rx] DOXYcycline CAP(*) [DOXYcycline 100MG CAP(*)] 100 mg PO BID #9 cap 05/04/19 [Rx] PMH/Surg Hx/FS Hx/Imm Hx Endocrine/Hematology History: Reports: Hx Anticoagulant Therapy - Xarelto, Hx Blood Transfusions, Other Endocrine/Hematological Disorders - Vitamin B deficiency Denies: Hx Diabetes, Hx Systemic Lupus Erythematosus, Hx Sickle Cell Disease Cardiovascular History: Reports: Hx Aneurysm - abdominal aorta, Hx Angina, Hx Coronary Artery Disease, Hx Hypercholesterolemia, Hx Hypertension, Other Cardiovascular Problems/Disorders - AAA ABOVE RENAL BIFERCATION RECENT MEASURE CTA 11.30.2012 Denies: Hx Congestive Heart Failure, Hx Pacemaker/ICD Respiratory History: Reports: Hx Asthma, Hx Chronic Obstructive Pulmonary Disease (COPD), Hx Sleep Apnea - CPAP at home, Other Respiratory Problems/ Disorders - SOME FORM OF INFLAMATORY PROCESS IN PROGRESS 1 YEAR GI History: Reports: Hx Diverticulosis, Hx Gastrointestinal Bleed History: Reports: Hx Benign Prostatic Hyperplasia - minimal, Hx Kidney Stones - 20 years ago Denies: Hx Renal Disease Comment Only: Other Problems/Disorders - HAS BEEN ASSESSED BY DR HAM.. SCANNING IN [place] 2009? 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 Denies: Hx Headaches Psychiatric History: Reports: Hx Anxiety - mild, Hx Depression - mild Denies: Hx Panic Disorder - Surgical History Surgery Procedure, Year, and Place: piloneal cyst removed in his 20's, AAA repair 11/2016 Hx Anesthesia Reactions: No - Immunization History Date of Tetanus Vaccine: utd Date of Influenza Vaccine: 2016 Infectious Disease History: No Infectious Disease History: Denies: Hx Clostridium Difficile, Hx Hepatitis, Hx Human Immunodeficiency Virus (HIV), Hx of Known/Suspected MRSA, Hx Shingles, Hx Tuberculosis, Traveled Outside the [place] in Last 30 Days - Family History Known Family History: Positive: Unknown, Other - Patient denies relevant FHx - Social History Alcohol Use: None Hx Substance Use: No Substance Use Type: Reports: None Hx Tobacco Use: Yes - YRS AGO Smoking Status (MU): Never Smoked Tobacco Review of Systems Negative: Fever Negative: Chest Pain Negative: Shortness Of Breath Positive: Other - laceration to head Positive: Headache All Other Systems Reviewed And Are Negative: Yes Physical Exam Triage Information Reviewed: Yes Vital Signs On Initial Exam: Initial Vitals Temp Pulse Resp BP Pulse Ox 97.3 F 84 20 112/72 94 05/04/19 17:38 05/04/19 17:38 05/04/19 17:38 05/04/19 17:38 05/04/19 17:38 Vital Signs Reviewed: Yes Appearance: Positive: Well-Appearing Skin: Positive: Warm, Dry, Other - 8cm by 1cm by 1/2cm scalp laceration Head/Face: Positive: Normal Head/Face Inspection Eyes: Positive: Normal, EOMI, SAYDA, Conjunctiva Clear ENT: Positive: Normal ENT inspection, Pharynx normal, TMs normal Respiratory/Lung Sounds: Positive: Clear to Auscultation, Breath Sounds Present Cardiovascular: Positive: Normal, RRR Abdomen Description: Positive: Nontender, Soft Bowel Sounds: Positive: Present Musculoskeletal: Positive: Normal Neurological: Positive: Sensory/Motor Intact, Alert, Oriented to Person Place, Time, CN Intact II-III Psychiatric: Positive: Normal Procedures - Sedation Patient Received Moderate/Deep Sedation with Procedure: No - Laceration/Wound Repair scalp Location: head Description: Linear Length, Depth and Shape: 8cm by 1cm laceration Irrigated w/ Saline (ccs): 1,000 Closure: Multilayer, Dm #__ Suture Type: Chromic Number of Sutures: 3 Layer Closure?: Yes - 3 deep sutures, 13 dm Diagnostics - Vital Signs Vital Signs Temp Pulse Resp BP Pulse Ox 05/04/19 17:38 97.3 F 84 20 112/72 94 - Laboratory Result Diagrams: 05/04/19 17:57 05/04/19 17:57 Lab Statement: Any lab studies that have been ordered have been reviewed, and results considered in the medical decision making process. - CT brain CT Interpretation Completed By: Radiologist Summary of CT Findings: IMPRESSION: No acute intracranial abnormality. No interval change. neck CT Interpretation Completed By: Radiologist Summary of CT Findings: IMPRESSION: No acute C-spine fractures. Moderate degenerative changes. - EKG No standard instances Cardiac Rate: NL EKG Rhythm: Sinus Rhythm Summary of EKG Findings: sinus rhythm, PACs Head Injury Course/Dx Course Of Treatment: 89 year old male presents with scalp laceration today. He states he stood up off the toilet and his pants got caught underneath him and he ended up falling onto his face and hit his head on the door. He states he did not pass out. He is not on blood thinners. The area continues to bleed. He believes his tetanus is up-to-date. Denies any nausea or vomiting. No dizziness. No change in vision. No chest pain shortness breath. No hip pain. No other injury. fall was a mechanical fall. On exam has a laceration of scalp. Normal neuro exam. CT brain shows no acute findings. wbc normal. troponin .01. ekg sinus rhythm. has 8cm by 1cm by 1/2cm laceration to scalp that cleaned and placed 3 deep absorable sutures and 13 dm. with length and deep will place on antibiotics (doxcycline). patient states wants to stay in ED overnight as house it too cold but explained can not do such as this is a risk to him with the covid outbreak. patient understand and agrees with plan. - Diagnoses Differential Diagnosis/HQI/PQRI: Concussion Without LOC, Contusion, Laceration Provider Diagnoses: Fall, Scalp laceration, Head injury Discharge ED - Sign-Out/Discharge Documenting (check all that apply): Patient Departure - Discharge Plan Condition: Good Disposition: HOME Prescriptions: DOXYcycline CAP(*) [DOXYcycline 100MG CAP(*)] 100 mg PO BID #9 cap Patient Education Materials: Head Injury (ED), Staple Care (ED) Referrals: Sameer Núñez MD [Primary Care Provider] - Additional Instructions: take doxycyline twice a day for 5 days to prevent wound infection, take with food and probiotic Take Tylenol for pain every 6 hours as needed apply ice to area Do not scrub staple area Return to ED, urgent care or primary in 7-10 days to have dm removed Follow up with primary within 7 days Return to ED if develop signs of infection such as fever, spreading redness, or pus or any new or worsening symptoms - Billing Disposition and Condition Condition: GOOD Disposition: Home
[2019-05-04] MEDS: Lidocaine 2% EPI 1:200000 MPF* 10 ML VIAL INJ ONE ×2 (18:02→19:08)
[2019-05-04] MEDS ORDERED: oxyCODONE/Acetamin 5/325 MG* TAB PO ONE (18:04)
[2019-05-04 18:10] LABS: ABS Basophils 0.1 10^3/ul (0-0.2); ABS Eosinophils 0.1 10^3/ul (0-0.6); ABS Monocytes 0.8 10^3/ul (0-0.8); ABS Neutrophils 6.1 10^3/ul (1.5-7.7); Eosinophil % 1.2 %; Hematocrit 41 % (42-52); Hemoglobin 14.1 g/dL (14.0-18.0); Lymphocyte % 12.7 %; Mean Corpuscular HGB Conc 34 g/dL (31-36); Mean Corpuscular Hemoglobin 31 pg (27-31); Mean Corpuscular Volume 90 fL (80-94); Mean Platelet Volume 8.6 fL (7.4-10.4); Platelet Count 235 10^3/uL (150-450); Red Blood Count 4.58 10^6 /uL (4.18-5.48); Red Cell Distribution Width 13 % (10-15); White Blood Count 8.1 10^3/uL (3.5-10.8)
[2019-05-04 18:13] LABS: Activated Partial Thrombo Time 28.1 seconds (26.0-38.0); INR 1.34 (0.82-1.09)
[2019-05-04 18:31] LABS: Albumin 3.2 g/dL (3.2-5.2); Albumin/Globulin Ratio 0.9 (1-3); BUN/Creatinine Ratio 18.7 (8-20); Calcium 8.4 mg/dL (8.6-10.3); EGFR African American 67.2 (>60); EGFR Non-African American 55.5 (>60); Globulin 3.5 g/dL (2-4); Potassium 3.2 mmol/L (3.5-5.0); Total Bilirubin 0.7 mg/dL (0.2-1.0); Total Protein 6.7 g/dL (6.4-8.9)
[2019-05-04 18:32] LABS: Troponin I 0.01 ng/mL (<0.03)
[2019-05-04] MEDS ORDERED: DOXYcycline CAP(*) 100 MG PO ONE (19:19)
[2019-05-04] MEDS ORDERED: Potassium Chlor TAB* 20 MEQ TAB.ER PO ONE (19:20)
--- OUTSIDE RECORDS SUMMARY | 2019-05-04 19:21 | XMS REPORT ---
:1930 Author Organization [facility] Care Team Providers Name Role Phone Unavailable Unavailable Unavailable Problems Condition Condition Condition Status Onset Resolution Last Treating Comments Name Details Category Date Date Treatment Clinician Date Discitis, Discitis, Diagnosis Active Gloria unspecified unspecified 3-17 [place] , thoracic , thoracic RN region region Unspecified Unspecified Diagnosis Active Gloria fracture of fracture of 02-06 [place] unspecified unspecified RN thoracic thoracic vertebra, vertebra, sequela sequela Other Other Diagnosis Active Gloria 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-06 [place]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, disease, 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 (primary) (primary) 02-06 [place] hypertensio hypertensio RN n n Unspecified Unspecified Diagnosis Active Gloria 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 RN n n 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 Abdominal Abdominal Diagnosis Active Gloria 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, aneurysm, 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 Benign Benign Diagnosis Active Gloria prostatic prostatic [place] hyperplasia hyperplasia RN without without lower lower urinary urinary tract tract symptoms symptoms Slow 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 RN n n 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 [place] specified B specified B RN group group vitamins vitamins 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 Unspecified Unspecified Diagnosis Active 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, loss, RN bilateral bilateral History of 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 Diagnosis Active Gloria 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 (current) (current) [place] use of use of RN opiate opiate analgesic analgesic Pain frequent Pain Mgmt Active 2019-0 [place] pain -18 [place] 11:00: [id number] 00 Respiratory dyspnea Respirator Active 2020-0 Maryuri present y -18 [place] 11:00: [id number] 00 Respiratory CPAP Respirator Active 2020-0 Maryuri treatments y 3-18 [place] in home 11:00: [id number] 00 Respiratory asthma Respirator Active 2020-0 Maryuri y -18 [place] 11:00: [id number] 00 Respiratory nebulizer Respirator Active 2020-0 Maryuri treatment y -18 [place] in home 11:00: [id number] 00 Sensory impaired Sensory Active 2019-0 Maryuri hearing 04-23 [place] 11:00: [id number] 00 Integument skin Integument Active 2019-0 Maryuri integrity -18 [place] risk 11:00: [id number] 00 Nutrition nutritional Nutrition Resolve 2019-04-26 Maryuri restriction d 18 14:45:00 [place] s 11:00: [id number] 00 Elimination urinary Eliminatio Resolve 2019-04-26 Maryuri incontinenc n d 04-23 14:45:00 [place] e 11:00: [id number] 00 Neuro confusion Neuro/Emot Active 2019-0 Maryuri present ion 04-23 [place] 11:00: [id number] 00 Neuro impaired Neuro/Emot Active 2019-0 Maryuri decision-ma ion 18 [place] tony 11:00: [id number] 00 Neuro memory Neuro/Emot Active 2019-0 Maryuri deficit ion -18 [place] needing 11:00: [id number] supervision 00 Activity ADL Activity Resolve 2019-04-26 Maryuri assistance d 04-23 14:45:00 [place] required 11:00: [id number] 00 Activity self-care Activity Resolve 2019-04-26 Maryuri deficit d 04-23 14:45:00 [place] 11:00: [id number] 00 Safety structural Safety Resolve 2019-04-26 Maryuri barriers d 318 14:45:00 [place] present 11:00: [id number] 00 Safety cannot be Safety Resolve 2019-04-26 Maryuri left alone d 3-18 14:45:00 [place] 11:00: [id number] 00 Safety fall risk Safety Resolve 2019-04-26 Maryuri factor d 04-23 14:45:00 [place] present 11:00: [id number] 00 Safety risk for Safety Resolve 2019-04-26 Maryuri saabiza d 3-18 14:45:00 [place] tion 11:00: [id number] 00 Medication oral med Meds Active 2019-0 Maryuri assistance 18 [place] required 11:00: [id number] 00 Medication knowledge/s Meds Active 2019-0 Maryuri kill - [place] deficit: pt 11:00: [id number] 00 Medication knowledge/s Meds Active 2019-0 Maryuri kill - [place] deficit: cg 11:00: [id number] 00 Musculoskel transfer Musculoske Active 2019-0 Maryuri etal assistance letal 04-23 [place] required 11:00: [id number] 00 Musculoskel requires Musculoske Active 2019-0 Maryuri etal human letal 18 [place] assist to 11:00: [id number] leave home 00 Bed mobility/tr PT/OT: Bed Active 2019-0 [place] Mobility/Tr ansfer Mobility/T 3-18 [place] ansfer device ransfer 16:45: [id number] present 00 Bed transfer PT/OT: Bed Active 2020-0 [place] Mobility/Tr deficit: Mobility/T 3-18 [place] ansfer sit/stand ransfer 16:45: [id number] 00 Bed knowledge/s PT/OT: Bed Active 2020-0 [place] Mobility/Tr kill Mobility/T 3-18 [place] ansfer deficit: pt ransfer 16:45: [id number] 00 Balance/End endurance PT/OT: Active 2020-0 [place] urance deficit Balance/En 3-18 [place] durance 16:45: [id number] 00 Balance/End knowledge/s PT/OT: Active 2020-0 [place] urance kill Balance/En -18 [place] deficit: pt durance 16:45: [id number] 00 Gait/Locomo knowledge/s PT/OT: Active 2020-0 [place] tion kill Gait/Locom 3-18 [place] problems deficit: pt otion 16:45: [id number] 00 Gait/[place]ocom[place] gait PT/OT: Active [place] tion deficit Gait/Locom 04-23 [place] problems otion 16:45: [id number] 00 Respiratory Incentive Respirator Resolve 2019-04-26 Gloria Spirometer y d 04-25 14:45:00 [place] /[place] 14:45: RN Device 00 treatments in home Safety risk for Safety Resolve 2019-04-30 [place] hospitaliza d 04-26 15:00:00 [place] tion 12:05: [id number] 00 Respiratory Incentive Respirator Resolve 2019-04-30 Gloria Spirometer y d 04-29 15:00:00 [place] /[place] 15:00: RN Device 00 treatments in home Elimination urinary Eliminatio Active Gloria incontinenc n 04-29 [place] e 15:00: RN 00 Safety cannot be Safety Active Gloria left alone 04-29 [place] 15:00: RN 00 Safety risk for Safety Active [place] hospitaliza 04-30 [place] tion 16:55: [id number] 00 Allergies, Adverse Reactions, Alerts Allergy Name Allergy Status Severity Reaction(s) Onset Inactive Treating Comments Type Date Date Clinician Penicillins Allergen Active Unknown Reaction 2017-02 Vibha [employer] Unknown 03-06 Medications Ordered Filled Start Stop Current Ordering Indication Dosage Frequency Signature Comments Components Medication Medication Date Date Medication? Clinician (SIG) Name Name amiodarone amiodarone 2020- Yes [place] Unknown Unknown 200 mg 200 mg 04-22 Gabino RUSSO tablet tablet citalopram citalopram 2020- Yes [place] Unknown Unknown 20 mg 20 mg 04-22 [place] RUSSO tablet tablet cholecalcif cholecalcif 2020- Yes [place] Unknown Unknown alissa alissa 04-22 [place] RUSSO (vitamin (vitamin D3) 2,000 D3) 2,000 unit tablet unit tablet amLODIPine amLODIPine 2020- Yes [place] Unknown Unknown 10 mg 10 mg 04-22 Gabino RUSSO tablet tablet Miralax 17 Miralax 17 2020- Yes [place] Unknown Unknown gram/dose gram/dose 04-22 [place] RUSSO oral powder oral powder albuterol albuterol 2020- Yes [place] Unknown Unknown sulfate 2.5 sulfate 2.5 04-22 [place] RUSSO mg/3 mL mg/3 mL (0.083 %) (0.083 %) solution solution for for nebulizatio nebulizatio n n ProAir HFA ProAir HFA 2020- Yes [place] Unknown Unknown 90 90 04-22 Gabino RUSSO mcg/actuati mcg/actuati on aerosol on aerosol inhaler inhaler saw saw 2020- Yes [place] Unknown Unknown palmetto palmetto 04-22 Gabino RUSSO fruit 450 fruit 450 mg capsule mg capsule Stiolto Stiolto 2020- Yes [place] Unknown Unknown Respimat Respimat 04-22 [place] RUSSO 2.5 mcg-2.5 2.5 mcg-2.5 mcg/actuati mcg/actuati on solution on solution for for inhalation inhalation aspirin 81 aspirin 81 2020- Yes [place] Unknown Unknown mg chewable mg chewable 04-22 Gabino RUSSO tablet tablet finasteride finasteride 2020- Yes [place] Unknown Unknown 5 mg tablet 5 mg tablet 04-22 Gabino RUSSO calcitonin calcitonin 2020- Yes [place] Unknown Unknown (salmon) (salmon) 04-22 Gabino RUSSO 200 200 unit/actuat unit/actuat ion nasal ion nasal spray spray ondansetron ondansetron 2020- Yes [place] Unknown Unknown 4 mg 4 mg 04-22 Gabino RUSSO disintegrat disintegrat ing tablet ing tablet lidocaine 5 lidocaine 5 2020- Yes [place] Unknown Unknown % topical % topical 04-22 Gabino RUSSO patch patch acetaminoph acetaminoph 2020- Yes [place] Unknown Unknown en 500 mg en 500 mg 04-22 Gabino RUSSO tablet tablet Milk of Milk of 2020- Yes [place] Unknown Unknown Magnesia Magnesia 04-22 Gabino RUSSO 400 mg/5 mL 400 mg/5 mL oral oral suspension suspension Cough Drops Cough Drops 2020- Yes [place] Unknown Unknown 5.8 mg 5.8 mg 04-22 Gabino RUSSO traMADol 50 traMADol 50 2020- Yes [place] Unknown Unknown mg tablet mg tablet 04-22 Gabino RUSSO amiodarone amiodarone Yes [place] Unknown Unknown 200 mg 200 mg 04-23 MD,Sameer tablet tablet citalopram citalopram Yes [place] Unknown Unknown 20 mg 20 mg 04-23 MD,Sameer tablet tablet cholecalcif cholecalcif Yes [place] Unknown Unknown alissa alissa 04-23 MD,Sameer (vitamin (vitamin D3) 2,000 D3) 2,000 unit tablet unit tablet amLODIPine amLODIPine Yes [place] Unknown Unknown 10 mg 10 mg 04-23 MD,Sameer tablet tablet Miralax 17 Miralax 17 Yes [place] Unknown Unknown gram/dose gram/dose 04-23 MD,Sameer oral powder oral powder albuterol albuterol Yes [place] Unknown Unknown sulfate 2.5 sulfate 2.5 04-23 MD,Sameer mg/3 mL mg/3 mL (0.083 %) (0.083 %) solution solution for for nebulizatio nebulizatio n n ProAir HFA ProAir HFA Yes [place] Unknown Unknown 90 90 04-23 ,Sameer mcg/actuati mcg/actuati on aerosol on aerosol inhaler inhaler saw saw Yes [place] Unknown Unknown palmetto palmetto 04-23 ,Sameer fruit 450 fruit 450 mg capsule mg capsule Stiolto Stiolto Yes [place] Unknown Unknown Respimat Respimat 04-23 MD,Sameer 2.5 mcg-2.5 2.5 mcg-2.5 mcg/actuati mcg/actuati on solution on solution for for inhalation inhalation finasteride finasteride Yes [place] Unknown Unknown 5 mg tablet 5 mg tablet 04-23 MD,Sameer acetaminoph acetaminoph Yes [place] Unknown Unknown en 500 mg en 500 mg 04-23 MD,Sameer tablet tablet traMADol 50 traMADol 50 2019- Yes [place] Unknown Unknown mg tablet mg tablet 04-23 Gabino RUSSO ondansetron ondansetron Yes [place] Unknown Unknown 4 mg 4 mg 24 [place] RUSSO disintegrat disintegrat ing tablet ing tablet Vital Signs Vital Name Observation Time Observation Value Comments SYSTOLIC mm[Hg] 2019-05-02 18:11:04 105 mm[Hg] mm[Hg] Method: Sit SYSTOLIC mm[Hg] 2019-04-24 18:10:56 128 mm[Hg] mm[Hg] Method: Stand DIASTOLIC mm[Hg] 2019-05-02 18:11:04 60 mm[Hg] mm[Hg] Method: Sit DIASTOLIC mm[Hg] 2019-04-24 18:10:56 76 mm[Hg] mm[Hg] Method: Stand PULSE 2019-05-02 18:11:04 92 /min /min RESP RATE 2019-05-01 18:11:03 18 /min /min Procedures This patient has no known procedures. Results This patient has no known results.
--- OUTSIDE RECORDS SUMMARY | 2019-05-04 19:21 | XMS REPORT ---
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 (current) (current) [place] use of use of RN opiate opiate analgesic analgesic Pain frequent Pain Mgmt Active 2019-0 Maryuri pain -18 [place] 11:00: [id number] 00 Respiratory dyspnea Respirator Active 2020-0 Maryuri present y -18 [place] 11:00: [id number] 00 Respiratory CPAP Respirator Active 2020-0 Maryuri treatments y 3-18 [place] in home 11:00: [id number] 00 Respiratory asthma Respirator Active 2020-0 Maryuri y -18 [place] 11:00: [id number] 00 Respiratory nebulizer Respirator Active 2020-0 Maryuri treatment y -18 [place] in home 11:00: [id number] 00 Sensory impaired Sensory Active 2019-0 Maryuri hearing 04-23 [place] 11:00: [id number] 00 Integument skin Integument Active 2019-0 Maryuri integrity -18 [place] risk 11:00: [id number] 00 Nutrition nutritional Nutrition Resolve 2019-04-26 Maryuri restriction d 18 14:45:00 [place] s 11:00: [id number] 00 Elimination urinary Eliminatio Resolve 2019-04-26 Maryuri incontinenc n d 04-23 14:45:00 [place] e 11:00: [id number] 00 Neuro confusion Neuro/Emot Active 2019-0 Maryuri present ion 04-23 [place] 11:00: [id number] 00 Neuro impaired Neuro/Emot Active 2019-0 Maryuri decision-ma ion 18 [place] tony 11:00: [id number] 00 Neuro memory Neuro/Emot Active 2019-0 Maryuri deficit ion -18 [place] needing 11:00: [id number] supervision 00 Activity ADL Activity Resolve 2019-04-26 Maryuri assistance d 04-23 14:45:00 [place] required 11:00: [id number] 00 Activity self-care Activity Resolve 2019-04-26 Maryuri deficit d 04-23 14:45:00 [place] 11:00: [id number] 00 Safety structural Safety Resolve 2019-04-26 Maryuri barriers d 318 14:45:00 [place] present 11:00: [id number] 00 Safety cannot be Safety Resolve 2019-04-26 Maryuri left alone d 3-18 14:45:00 [place] 11:00: [id number] 00 Safety fall risk Safety Resolve 2019-04-26 Maryuri factor d 04-23 14:45:00 [place] present 11:00: [id number] 00 Safety risk for Safety Resolve 2019-04-26 Maryuri saabiza d 3-18 14:45:00 [place] tion 11:00: [id number] 00 Medication oral med Meds Active 2019-0 Maryuri assistance 18 [place] required 11:00: [id number] 00 Medication knowledge/s Meds Active 2019-0 Maryuri kill - [place] deficit: pt 11:00: [id number] 00 Medication knowledge/s Meds Active 2019-0 Maryuri kill - [place] deficit: cg 11:00: [id number] 00 Musculoskel transfer Musculos[place] Active 2019-0 Maryuri etal assistance letal 04-23 [place] required 11:00: [id number] 00 Musculoskel requires [place]culoske Active 2019-0 Maryuri etal human letal 18 [place] assist to 11:00: [id number] leave home 00 Bed mobility/tr PT/OT: Bed Active 2019-0 [place] Mobility/Tr ansfer Mobility/T 3-18 [place] ansfer device ransfer 16:45: [id number] present 00 Bed transfer PT/OT: Bed Active 2020-0 [place] Mobility/Tr deficit: Mobility/T 3-18 [place] ansfer sit/stand ransfer 16:45: [id number] 00 Bed knowledge/s PT/OT: Bed Active 2020-0 [place] Mobility/Tr kill Mobility/T 3-18 [place] ansfer deficit: pt ransfer 16:45: [id number] 00 Balance/End endurance PT/OT: Active 2020-0 [place] urance deficit Balance/En 3-18 [place] durance 16:45: [id number] 00 Balance/End knowledge/s PT/OT: Active 2020-0 [place] urance kill Balance/En -18 [place] deficit: pt durance 16:45: [id number] 00 Gait/Locomo knowledge/s PT/OT: Active 2020-0 [place] tion kill Gait/Locom 3-18 [place] problems deficit: pt otion 16:45: [id number] 00 Gait/[place]o gait PT/OT: Active [place] tion deficit Gait/Locom 18 [place] problems otion 16:45: [id number] 00 Respiratory Incentive Respirator Resolve 2019-04-26 Gloria Spirometer y d 04-25 14:45:00 [place] /[place] 14:45: RN Device 00 treatments in home Safety risk for Safety Resolve 2019-04-30 [place] hospitaliza d 04-26 15:00:00 [place] tion 12:05: [id number] 00 Respiratory Incentive Respirator Resolve 2019-04-30 Gloria Spirometer y d 04-29 15:00:00 [place] /[place] 15:00: RN Device 00 treatments in home Elimination urinary Eliminatio Active Gloria incontinenc n 04-29 [place] e 15:00: RN 00 Safety cannot be Safety Active Gloria left alone 04-29 [place] 15:00: RN 00 Allergies, Adverse Reactions, Alerts Allergy Name Allergy Status Severity Reaction(s) Onset Inactive Treating Comments Type Date Date Clinician Penicillins Allergen Active Unknown Reaction 2017-02 Vibha [employer] Unknown 03-06 Medications Ordered Filled Start Stop Current Ordering Indication Dosage Frequency Signature Comments Components Medication Medication Date Date Medication? Clinician (SIG) Name Name amiodarone amiodarone 2019- Yes [place] Unknown Unknown 200 mg 200 mg 04-22 Gabino RUSSO tablet tablet citalopram citalopram 2019- Yes [place] Unknown Unknown 20 mg 20 mg 04-22 Gabino RUSSO tablet tablet cholecalcif cholecalcif 2020- Yes [place] Unknown Unknown alissa alissa 04-22 Gabino RUSSO (vitamin (vitamin D3) 2,000 D3) 2,000 unit tablet unit tablet amLODIPine amLODIPine 2019- Yes [place] Unknown Unknown 10 mg 10 mg 04-22 Gab[place] RUSSO tablet tablet Miralax 17 Miralax 17 2020- Yes [place] Unknown Unknown gram/dose gram/dose 04-22 [place] RUSSO oral powder oral powder albuterol albuterol 2020- Yes [place] Unknown Unknown sulfate 2.5 sulfate 2.5 04-22 Gab[place] RUSSO mg/3 mL mg/3 mL (0.083 %) (0.083 %) solution solution for for nebulizatio nebulizatio n n ProAir HFA ProAir HFA 2020- Yes [place] Unknown Unknown 90 90 04-22 Gab[place] RUSSO mcg/actuati mcg/actuati on aerosol on aerosol inhaler inhaler saw saw 2020- Yes [place] Unknown Unknown palmetto palmetto 04-22 Gab[place] RUSSO fruit 450 fruit 450 mg capsule mg capsule Stiolto Stiolto 2020- Yes [place] Unknown Unknown Respimat Respimat 04-22 Gab[place] RUSSO 2.5 mcg-2.5 2.5 mcg-2.5 mcg/actuati mcg/actuati on solution on solution for for inhalation inhalation aspirin 81 aspirin 81 2020- Yes [place] Unknown Unknown mg chewable mg chewable 04-22 Gabino RUSSO tablet tablet finasteride finasteride 0 2020- Yes [place] Unknown Unknown 5 mg tablet 5 mg tablet 04-22 Gabino RUSSO calcitonin calcitonin 0 2020- Yes [place] Unknown Unknown (salmon) (salmon) 04-22 Gab[place] RUSSO 200 200 unit/actuat unit/actuat ion nasal ion nasal spray spray ondansetron ondansetron 0 2020- Yes [place] Unknown Unknown 4 mg 4 mg 04-22 Gab[place] RUSSO disintegrat disintegrat ing tablet ing tablet lidocaine 5 lidocaine 5 2020- Yes [place] Unknown Unknown % topical % topical 04-22 Gabino RUSSO patch patch acetaminoph acetaminoph 2020- Yes [place] Unknown Unknown en 500 mg en 500 mg 04-22 Gab[place] RUSSO tablet tablet Milk of Milk of 2020- Yes [place] Unknown Unknown Magnesia Magnesia 04-22 [place] RUSSO 400 mg/5 mL 400 mg/5 mL oral oral suspension suspension Cough Drops Cough Drops 2020- Yes [place] Unknown Unknown 5.8 mg 5.8 mg 04-22 [place] RUSSO traMADol 50 traMADol 50 0 2020- Yes [place] Unknown Unknown mg tablet mg tablet 04-22 Gabino RUSSO amiodarone amiodarone Yes [place] Unknown Unknown 200 mg 200 mg 04-23 MD,Sameer tablet tablet citalopram citalopram Yes [place] Unknown Unknown 20 mg 20 mg 04-23 MD,Sameer tablet tablet cholecalcif cholecalcif Yes [place] Unknown Unknown alissa alissa 04-23 ,Sameer (vitamin (vitamin D3) 2,000 D3) 2,000 unit tablet unit tablet amLODIPine amLODIPine Yes [place] Unknown Unknown 10 mg 10 mg 04-23 MD,Sameer tablet tablet Miralax 17 Miralax 17 Yes [place] Unknown Unknown gram/dose gram/dose 04-23 ,Sameer oral powder oral powder albuterol albuterol Yes [...] Yes [place] Unknown Unknown Respimat Respimat 04-23 ,Sameer 2.5 mcg-2.5 2.5 mcg-2.5 mcg/actuati mcg/actuati on solution on solution for for inhalation inhalation finasteride finasteride Yes [place] Unknown Unknown 5 mg tablet 5 mg tablet 04-23 ,Sameer acetaminoph acetaminoph Yes [place] Unknown Unknown en 500 mg en 500 mg 04-23 ,Sameer tablet tablet traMADol 50 traMADol 50 Yes [place] Unknown Unknown mg tablet mg tablet 04-23 [place] RUSSO ondansetron ondansetron Yes [place] Unknown Unknown 4 mg 4 mg 04-29 ,Sameer disintegrat disintegrat ing tablet ing tablet Vital Signs Vital Name Observation Time Observation Value Comments SYSTOLIC mm[Hg] 2019-05-01 18:11:03 112 mm[Hg] mm[Hg] Method: Sit SYSTOLIC mm[Hg] 2019-04-24 18:10:56 128 mm[Hg] mm[Hg] Method: Stand DIASTOLIC mm[Hg] 2019-05-01 18:11:03 64 mm[Hg] mm[Hg] Method: Sit DIASTOLIC mm[Hg] 2019-04-24 18:10:56 76 mm[Hg] mm[Hg] Method: Stand PULSE 2019-05-01 18:11:03 83 /min /min RESP RATE 2019-05-01 18:11:03 18 /min /min Procedures This patient has no known procedures. Results This patient has no known results.
--- OUTSIDE RECORDS SUMMARY | 2019-05-04 19:21 | XMS REPORT ---
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 Gloria (current) (current) [place] use of use of RN opiate opiate analgesic analgesic Pain frequent Pain Mgmt Active 2019-0 Maryuri pain -18 [place] 11:00: [id number] 00 Respiratory dyspnea Respirator Active 2020-0 Maryuri present y -18 [place] 11:00: [id number] 00 Respiratory CPAP Respirator Active 2020-0 Maryuri treatments y 3-18 [place] in home 11:00: [id number] 00 Respiratory asthma Respirator Active 2020-0 Maryuri y -18 [place] 11:00: [id number] 00 Respiratory nebulizer Respirator Active 2020-0 Maryuri treatment y -18 [place] in home 11:00: [id number] 00 Sensory impaired Sensory Active 2019-0 Maryuri hearing 04-23 [place] 11:00: [id number] 00 Integument skin Integument Active 2019-0 Maryuri integrity -18 [place] risk 11:00: [id number] 00 Nutrition nutritional Nutrition Resolve 2019-04-26 Maryuri restriction d 18 14:45:00 [place] s 11:00: [id number] 00 Elimination urinary Eliminatio Resolve 2019-04-26 Maryuri incontinenc n d 04-23 14:45:00 [place] e 11:00: [id number] 00 Neuro confusion Neuro/Emot Active 2019-0 Maryuri present ion 04-23 [place] 11:00: [id number] 00 Neuro impaired Neuro/Emot Active 2019-0 Maryuri decision-ma ion 18 [place] tony 11:00: [id number] 00 Neuro memory Neuro/Emot Active 2019-0 Maryuri deficit ion -18 [place] needing 11:00: [id number] supervision 00 Activity ADL Activity Resolve 2019-04-26 Maryuri assistance d 04-23 14:45:00 [place] required 11:00: [id number] 00 Activity self-care Activity Resolve 2019-04-26 Maryuri deficit d 04-23 14:45:00 [place] 11:00: [id number] 00 Safety structural Safety Resolve 2019-04-26 Maryuri barriers d 318 14:45:00 [place] present 11:00: [id number] 00 Safety cannot be Safety Resolve 2019-04-26 Maryuri left alone d 3-18 14:45:00 [place] 11:00: [id number] 00 Safety fall risk Safety Resolve 2019-04-26 Maryuri factor d 04-23 14:45:00 [place] present 11:00: [id number] 00 Safety risk for Safety Resolve 2019-04-26 Maryuri saabiza d 3-18 14:45:00 [place] tion 11:00: [id number] 00 Medication oral med Meds Active 2019-0 Maryuri assistance 18 [place] required 11:00: [id number] 00 Medication knowledge/s Meds Active 2019-0 Maryuri kill - [place] deficit: pt 11:00: [id number] 00 Medication knowledge/s Meds Active 2019-0 Maryuri kill - [place] deficit: cg 11:00: [id number] 00 Musculoskel transfer Musculoske Active 2019-0 Maryuri etal assistance letal 04-23 [place] required 11:00: [id number] 00 Musculoskel requires Musculoske Active 2019-0 Maryuri etal human letal 18 [place] assist to 11:00: [id number] leave home 00 Bed mobility/tr PT/OT: Bed Active 2019-0 [place] Mobility/Tr ansfer Mobility/T 3-18 [place] ansfer device ransfer 16:45: [id number] present 00 Bed transfer PT/OT: Bed Active 2020-0 [place] Mobility/Tr deficit: Mobility/T 3-18 [place] ansfer sit/stand ransfer 16:45: [id number] 00 Bed knowledge/s PT/OT: Bed Active 2020-0 [place] Mobility/Tr kill Mobility/T 3-18 [place] ansfer deficit: pt ransfer 16:45: [id number] 00 Balance/End endurance PT/OT: Active 2020-0 [place] urance deficit Balance/En 3-18 [place] durance 16:45: [id number] 00 Balance/End knowledge/s PT/OT: Active 2020-0 [place] urance kill Balance/En -18 [place] deficit: pt durance 16:45: [id number] 00 Gait/Locomo knowledge/s PT/OT: Active 2020-0 [place] tion kill Gait/Locom 3-18 [place] problems deficit: pt otion 16:45: [id number] 00 Gait/Locomo gait PT/OT: Active [place] tion deficit Gait/Locom 04-23 [place] problems otion 16:45: [id number] 00 Respiratory Incentive Respirator Resolve 2019-04-26 Gloria Spirometer y d 04-25 14:45:00 [place] /[place] 14:45: RN Device 00 treatments in home Safety risk for Safety Resolve 2019-04-30 [place] hospitaliza d 04-26 15:00:00 [place] tion 12:05: [id number] 00 Respiratory Incentive Respirator Resolve 2019-04-30 Gloria Spirometer y d 04-29 15:00:00 [place] /[place] 15:00: RN Device 00 treatments in home Elimination urinary Eliminatio Active Gloria incontinenc n 04-29 [place] e 15:00: RN 00 Safety cannot be Safety Active Gloria left alone 04-29 [place] 15:00: RN 00 Safety risk for Safety Active [place] hospitaliza 04-30 [place] tion 16:55: [id number] 00 Allergies, Adverse Reactions, Alerts Allergy Name Allergy Status Severity Reaction(s) Onset Inactive Treating Comments Type Date Date Clinician Penicillins Allergen Active Unknown Reaction 2017-02 [facility] [employer] Unknown 03-06 Medications Ordered Filled Start Stop Current Ordering Indication Dosage Frequency Signature Comments Components Medication Medication Date Date Medication? Clinician (SIG) Name Name amiodarone amiodarone 2020- Yes [place] Unknown Unknown 200 mg 200 mg 04-22 Gabino RUSSO tablet tablet citalopram citalopram 2020- Yes [place] Unknown Unknown 20 mg 20 mg 04-22 [place] RUSSO tablet tablet cholecalcif cholecalcif 2020- Yes [place] Unknown Unknown alissa alissa 04-22 [place] RUSSO (vitamin (vitamin D3) 2,000 D3) 2,000 unit tablet unit tablet amLODIPine amLODIPine 2020- Yes [place] Unknown Unknown 10 mg 10 mg 04-22 [place] RUSSO tablet tablet Miralax 17 Miralax 17 2020- Yes [place] Unknown Unknown gram/dose gram/dose 04-22 [place] RUSSO oral powder oral powder albuterol albuterol 2020- Yes [place] Unknown Unknown sulfate 2.5 sulfate 2.5 04-22 [place] RUSSO mg/3 mL mg/3 mL (0.083 %) (0.083 %) solution solution for for nebulizatio nebulizatio n n ProAir HFA ProAir HFA 2020- Yes [place] Unknown Unknown 90 90 04-22 [place] RUSSO mcg/actuati mcg/actuati on aerosol on aerosol inhaler inhaler saw saw 2020- Yes [place] Unknown Unknown palmetto palmetto 04-22 [place] RUSSO fruit 450 fruit 450 mg capsule mg capsule Stiolto Stiolto 2020- Yes [place] Unknown Unknown Respimat Respimat 04-22 [place] RUSSO 2.5 mcg-2.5 2.5 mcg-2.5 mcg/actuati mcg/actuati on solution on solution for for inhalation inhalation aspirin 81 aspirin 81 2020- Yes [place] Unknown Unknown mg chewable mg chewable 04-22 [place] RUSSO tablet tablet finasteride finasteride 2020- Yes [place] Unknown Unknown 5 mg tablet 5 mg tablet 04-22 [place] RUSSO calcitonin calcitonin 2020- Yes [place] Unknown Unknown (salmon) (salmon) 04-22 [place] RUSSO 200 200 unit/actuat unit/actuat ion nasal ion nasal spray spray ondansetron ondansetron 2020- Yes [place] Unknown Unknown 4 mg 4 mg 04-22 [place] RUSSO disintegrat disintegrat ing tablet ing tablet lidocaine 5 lidocaine 5 2020- Yes [place] Unknown Unknown % topical % topical 04-22 [place] RUSSO patch patch acetaminoph acetaminoph 2020- Yes [place] Unknown Unknown en 500 mg en 500 mg 04-22 [place] RUSSO tablet tablet Milk of Milk of 2020- Yes [place] Unknown Unknown Magnesia Magnesia 04-22 [place] RUSSO 400 mg/5 mL 400 mg/5 mL oral oral suspension suspension Cough Drops Cough Drops 2020- Yes [place] Unknown Unknown 5.8 mg 5.8 mg 04-22 [place] RUSSO traMADol 50 traMADol 50 2020- Yes [place] Unknown Unknown mg tablet mg tablet 04-22 [...] tablet traMADol 50 traMADol 50 2019- Yes [place] Unknown Unknown mg tablet mg tablet 04-23 [place] RUSSO ondansetron ondansetron Yes [place] Unknown Unknown 4 mg 4 mg 324 Sameer RUSSO disintegrat disintegrat ing tablet ing tablet Vital Signs Vital Name Observation Time Observation Value Comments SYSTOLIC mm[Hg] 2019-05-03 18:11:05 98 mm[Hg] mm[Hg] Method: Sit SYSTOLIC mm[Hg] 2019-04-24 18:10:56 128 mm[Hg] mm[Hg] Method: Stand DIASTOLIC mm[Hg] 2019-05-03 18:11:05 58 mm[Hg] mm[Hg] Method: Sit DIASTOLIC mm[Hg] 2019-04-24 18:10:56 76 mm[Hg] mm[Hg] Method: Stand PULSE 2019-05-03 18:11:05 92 /min /min RESP RATE 2019-05-01 18:11:03 18 /min /min Procedures This patient has no known procedures. Results This patient has no known results.
--- OUTSIDE RECORDS SUMMARY | 2019-05-04 19:22 | XMS REPORT ---
:1930 Author Organization [facility] Care Team Providers Name Role Phone Unavailable Unavailable Unavailable Problems Condition Condition Condition Status Onset Resolution Last Treating Comments Name Details Category Date Date Treatment Clinician Date Discitis, Discitis, Diagnosis Active Gloria unspecified unspecified 04-22 [place] , thoracic , thoracic RN region region Allergies, Adverse Reactions, Alerts Allergy Name Allergy Status Severity Reaction(s) Onset Inactive Treating Comments Type Date Date Clinician Penicillins Allergen Active Unknown Reaction 2017-02 [facility] [employer] Unknown 03-06 Medications Ordered Filled Start Stop Current Ordering Indication Dosage Frequency Signature Comments Components Medication Medication Date Date Medication? Clinician (SIG) Name Name amiodarone amiodarone Yes [place] Unknown Unknown 200 mg 200 mg 04-22 Gabino RUSSO tablet tablet citalopram citalopram Yes [place] Unknown Unknown 20 mg 20 mg 04-22 [place] RUSSO tablet tablet cholecalcif cholecalcif Yes [place] Unknown Unknown alissa alissa 04-22 [place] RUSSO (vitamin (vitamin D3) 2,000 D3) 2,000 unit tablet unit tablet amLODIPine amLODIPine Yes [place] Unknown Unknown 10 mg 10 mg 04-22 [place] RUSSO tablet tablet Miralax 17 Miralax 17 Yes [place] Unknown Unknown gram/dose gram/dose 04-22 [place] RUSSO oral powder oral powder albuterol albuterol Yes [place] Unknown Unknown sulfate 2.5 sulfate 2.5 04-22 [place] RSUSO mg/3 mL mg/3 mL (0.083 %) (0.083 %) solution solution for for nebulizatio nebulizatio n n ProAir HFA ProAir HFA Yes [place] Unknown Unknown 90 90 04-22 [place] RUSSO mcg/actuati mcg/actuati on aerosol on aerosol inhaler inhaler saw saw 2020-0 Yes [place] Unknown Unknown palmetto palmetto 3- Gabino RUSSO fruit 450 fruit 450 mg capsule mg capsule Stiolto Stiolto 2020-0 Yes [place] Unknown Unknown Respimat Respimat - Gabino RUSSO 2.5 mcg-2.5 2.5 mcg-2.5 mcg/actuati mcg/actuati on solution on solution for for inhalation inhalation aspirin 81 aspirin 81 2020-0 Yes [place] Unknown Unknown mg chewable mg chewable 3 [place] RUSSO tablet tablet finasteride finasteride 2020-0 Yes [place] Unknown Unknown 5 mg tablet 5 mg tablet 04-22 Gab[place] RUSSO calcitonin calcitonin 2020-0 Yes [place] Unknown Unknown (salmon) (salmon) 3 [place] RUSSO 200 200 unit/actuat unit/actuat ion nasal ion nasal spray spray ondansetron ondansetron 2020-0 Yes [place] Unknown Unknown 4 mg 4 mg 04-22 [place] RUSSO disintegrat disintegrat ing tablet ing tablet lidocaine 5 lidocaine 5 2020-0 Yes [place] Unknown Unknown % topical % topical 04-22 Gabino RUSSO patch patch acetaminoph acetaminoph 2020-0 Yes [place] Unknown Unknown en 500 mg en 500 mg 04-22 [place] RUSSO tablet tablet Milk of Milk of 2020-0 Yes [place] Unknown Unknown Magnesia Magnesia 04-22 [place] RUSSO 400 mg/5 mL 400 mg/5 mL oral oral suspension suspension Cough Drops Cough Drops 2020-0 Yes [place] Unknown Unknown 5.8 mg 5.8 mg 04-22 Gabino RUSSO traMADol 50 traMADol 50 2020-0 Yes [place] Unknown Unknown mg tablet mg tablet 04-22 Gabino RUSSO Procedures This patient has no known procedures. Results This patient has no known results.
--- OUTSIDE RECORDS SUMMARY | 2019-05-04 19:22 | XMS REPORT ---
:1930 Author Organization [facility] Care Team Providers Name Role Phone Unavailable Unavailable Unavailable Problems Condition Condition Condition Status Onset Resolution Last Treating Comments Name Details Category Date Date Treatment Clinician Date Discitis, Discitis, Diagnosis Active 2020-0 Gloria unspecified unspecified 317 [place] , thoracic , thoracic RN region region Pain frequent Pain Mgmt Active 2020-0 Maryuri pain 04-23 [place] 11:00: [id number] 00 Respiratory dyspnea Respirator Active 2020-0 Maryuri present y 04-23 [place] 11:00: [id number] 00 Respiratory CPAP Respirator Active 2020-0 Maryuri treatments y -18 [place] in home 11:00: [id number] 00 Respiratory asthma Respirator Active 2020-0 Maryuri y 18 [place] 11:00: [id number] 00 Respiratory nebulizer Respirator Active 2020-0 Maryuri treatment y -18 [place] in home 11:00: [id number] 00 Sensory impaired Sensory Active 2020-0 Maryuri hearing - [place] 11:00: [id number] 00 Integument skin Integument Active 2020-0 Maryuri integrity -18 [place] risk 11:00: [id number] 00 Nutrition nutritional Nutrition Active 2020-0 Maryuri restriction -18 [place] s 11:00: [id number] 00 Elimination urinary Eliminatio Active 2020-0 Maryuri incontinenc n -18 [place] e 11:00: [id number] 00 Neuro confusion Neuro/Emot Active 2020-0 Maryuri present ion -18 [place] 11:00: [id number] 00 Neuro impaired Neuro/Emot Active 2020-0 Maryuri decision-ma ion 04-23 [place] tony 11:00: [id number] 00 Neuro memory Neuro/Emot Active 2020-0 Maryuri deficit ion -18 [place] needing 11:00: [id number] supervision 00 Activity ADL Activity Active 2020-0 Maryuri assistance 18 [place] required 11:00: [id number] 00 Activity self-care Activity Active 2020-0 Maryuri deficit -18 [place] 11:00: [id number] 00 Safety structural Safety Active 2020-0 Maryuri barriers -18 [place] present 11:00: [id number] 00 Safety cannot be Safety Active 2020-0 Maryuri left alone 18 [place] 11:00: [id number] 00 Safety fall risk Safety Active 2020-0 Maryuri factor -18 [place] present 11:00: [id number] 00 Safety risk for Safety Active 2020-0 Maryuri hospitaliza 18 [place] tion 11:00: [id number] 00 Medication oral med Meds Active 2020-0 Maryuri assistance 18 [place] required 11:00: [id number] 00 Medication knowledge/s Meds Active 2020-0 Maryuri kill 18 [place] deficit: pt 11:00: [id number] 00 Medication knowledge/s Meds Active 2020-0 Maryuri kill 18 [place] deficit: cg 11:00: [id number] 00 Musculoskel transfer Musculoske Active 2020-0 Maryuri etal assistance letal 04-23 [place] required 11:00: [id number] 00 Musculoskel requires Musculoske Active 2020-0 Maryuri etal human letal 18 [place] assist to 11:00: [id number] leave home 00 Allergies, Adverse Reactions, Alerts Allergy Name Allergy Status Severity Reaction(s) Onset Inactive Treating Comments Type Date Date Clinician Penicillins Allergen Active Unknown Reaction 2017-02 V[facility] [employer] Unknown 03-06 Medications Ordered Filled Start Stop Current Ordering Indication Dosage Frequency Signature Comments Components Medication Medication Date Date Medication? Clinician (SIG) Name Name amiodarone amiodarone 2020-0 2020- Yes [place] Unknown Unknown 200 mg 200 mg 04-22 Gabino RUSSO tablet tablet citalopram citalopram 0 2020- Yes [place] Unknown Unknown 20 mg 20 mg 04-22 Gabino RUSSO tablet tablet cholecalcif cholecalcif 2019- 2020- Yes [place] Unknown Unknown alissa alissa 04-22 Gabino RUSSO (vitamin (vitamin D3) 2,000 D3) 2,000 unit tablet unit tablet amLODIPine amLODIPine 2020- Yes [place] Unknown Unknown 10 mg 10 mg 04-22 Gabino RUSSO tablet tablet Miralax 17 Miralax 17 2020- Yes [place] Unknown Unknown gram/dose gram/dose 04-22 [place] RUSSO oral powder oral powder albuterol albuterol 2020- Yes [place] Unknown Unknown sulfate 2.5 sulfate 2.5 04-22 [place] RUSSO mg/3 mL mg/3 mL (0.083 %) (0.083 %) solution solution for for nebulizatio nebulizatio n n ProAir HFA ProAir HFA 2019- Yes [place] Unknown Unknown 90 90 04-22 Gabino RUSSO mcg/actuati mcg/actuati on aerosol on aerosol inhaler inhaler saw saw 2019- Yes [place] Unknown Unknown palmetto palmetto 04-22 [place] RUSSO fruit 450 fruit 450 mg capsule mg capsule Stiolto Stiolto 2019- Yes [place] Unknown Unknown Respimat Respimat 04-22 [place] RUSSO 2.5 mcg-2.5 2.5 mcg-2.5 mcg/actuati mcg/actuati on solution on solution for for inhalation inhalation aspirin 81 aspirin 81 2020- Yes [place] Unknown Unknown mg chewable mg chewable 04-22 [place] RUSSO tablet tablet finasteride finasteride 2020- Yes [place] Unknown Unknown 5 mg tablet 5 mg tablet 04-22 Gabino RUSSO calcitonin calcitonin 2020- Yes [place] Unknown Unknown (salmon) (salmon) 04-22 [place] RUSSO 200 200 unit/actuat unit/actuat ion nasal ion nasal spray spray ondansetron ondansetron 2020- Yes [place] Unknown Unknown 4 mg 4 mg 04-22 [place] RUSSO disintegrat disintegrat ing tablet ing tablet lidocaine 5 lidocaine 5 2020- Yes [place] Unknown Unknown % topical % topical 04-22 Gabino RUSSO patch patch acetaminoph acetaminoph 2020- Yes [place] Unknown Unknown en 500 mg en 500 mg 04-22 Gab[place] RUSSO tablet tablet Milk of Milk of 2019- Yes [place] Unknown Unknown Magnesia Magnesia 04-22 [place] RUSSO 400 mg/5 mL 400 mg/5 mL oral oral suspension suspension Cough Drops Cough Drops 2019- Yes [place] Unknown Unknown 5.8 mg 5.8 mg 04-22 Gab[place] RUSSO traMADol 50 traMADol 50 2019- Yes [place] Unknown Unknown mg tablet mg tablet 04-22 [...] Yes [place] Unknown Unknown 90 90 04-23 MD,Sameer mcg/actuati mcg/actuati on aerosol on aerosol inhaler [...] 5 mg tablet 04-23 ,Sameer acetaminoph acetaminoph 2019- Yes [place] Unknown Unknown en 500 mg en 500 mg 04-23 ,Sameer tablet tablet traMADol 50 traMADol 50 Yes [place] Unknown Unknown mg tablet mg tablet 04-23 Gabino RUSSO Vital Signs Vital Name Observation Time Observation Value Comments SYSTOLIC mm[Hg] 2019-04-24 18:10:56 132 mm[Hg] mm[Hg] Method: Sit SYSTOLIC mm[Hg] 2019-04-24 18:10:56 128 mm[Hg] mm[Hg] Method: Stand DIASTOLIC mm[Hg] 2019-04-24 18:10:56 80 mm[Hg] mm[Hg] Method: Sit DIASTOLIC mm[Hg] 2019-04-24 18:10:56 76 mm[Hg] mm[Hg] Method: Stand PULSE 2019-04-24 18:10:56 90 /min /min RESP RATE 2019-04-24 18:10:56 22 /min /min TEMP 2019-04-24 18:10:56 98.3 [degF] Procedures This patient has no known procedures. Results This patient has no known results.
--- OUTSIDE RECORDS SUMMARY | 2019-05-04 19:22 | XMS REPORT ---
:1930 Author Organization [facility] Care Team Providers Name Role Phone Unavailable Unavailable Unavailable Problems Condition Condition Condition Status Onset Resolution Last Treating Comments Name Details Category Date Date Treatment Clinician Date Discitis, Discitis, Diagnosis Active 2020-0 Gloria unspecified unspecified 317 [place] , thoracic , thoracic RN region region Pain frequent Pain Mgmt Active 2020-0 Maryuri pain 04-23 [place] 11:00: [id number] Respiratory dyspnea Respirator Active 2020-0 Maryuri present y 04-23 [place] 11:00: [id number] 00 Respiratory CPAP Respirator Active 2020-0 Maryuri treatments y -18 [place] in home 11:00: [id number] 00 Respiratory asthma Respirator Active 2020-0 Maryuri y 18 [place] 11:00: [id number] 00 Respiratory nebulizer Respirator Active 2020-0 Maryuri treatment y -18 [place] in home 11:00: [id number] 00 Sensory impaired Sensory Active 2020-0 Maryuri hearing - [place] 11:00: [id number] 00 Integument skin Integument Active 2020-0 Maryuri integrity 18 [place] risk 11:00: [id number] 00 Nutrition nutritional Nutrition Active 2020-0 Maryuri restriction -18 [place] s 11:00: [id number] 00 Elimination urinary Eliminatio Active 2020-0 Maryuri incontinenc n -18 [place] e 11:00: [id number] 00 Neuro confusion Neuro/Emot Active 2020-0 Maryuri present ion -18 [place] 11:00: [id number] 00 Neuro impaired Neuro/Emot Active 2020-0 Maryuri decision-ma ion 04-23 [place] tony 11:00: [id number] 00 Neuro memory Neuro/Emot Active 2020-0 Maryuri deficit ion 18 [place] needing 11:00: [id number] supervision 00 Activity ADL Activity Active 2020-0 Maryuri assistance 3-18 [place] required 11:00: [id number] 00 Activity self-care Activity Active 2020-0 Maryuri deficit 3-18 [place] 11:00: [id number] 00 Safety structural Safety Active 2020-0 Maryuri barriers 3-18 [place] present 11:00: [id number] 00 Safety cannot be Safety Active 2020-0 Maryuri left alone 3-18 [place] 11:00: [id number] 00 Safety fall risk Safety Active 2020-0 Maryuri factor 3-18 [place] present 11:00: [id number] 00 Safety risk for Safety Active 2020-0 Maryuri hospitaliza 3-18 [place] tion 11:00: [id number] 00 Medication oral med Meds Active 2020-0 Maryuri assistance 3-18 [place] required 11:00: [id number] 00 Medication knowledge/s Meds Active 2020-0 Maryuri kill 3-18 [place] deficit: pt 11:00: [id number] 00 Medication knowledge/s Meds Active 2020-0 Maryuri kill -18 [place] deficit: cg 11:00: [id number] 00 Musculoskel transfer Musculoske Active 2020-0 Maryuri etal assistance letal 3-18 [place] required 11:00: [id number] 00 Musculoskel requires Musculoske Active 2020-0 Maryuri etal human letal 3-18 [place] assist to 11:00: [id number] leave home 00 Bed mobility/tr PT/OT: Bed Active 2020-0 [place] Mobility/Tr ansfer Mobility/T 3-18 [place] ansfer device ransfer 16:45: [id number] present 00 Bed transfer PT/OT: Bed Active 2020-0 [place] Mobility/Tr deficit: Mobility/T 3-18 [place] ansfer sit/stand ransfer 16:45: [id number] 00 Bed knowledge/s PT/OT: Bed Active 2020-0 [place] Mobility/Tr kill Mobility/T 3-18 [place] ansfer deficit: pt ransfer 16:45: [id number] 00 Balance/End endurance PT/OT: Active 2020-0 [place] urance deficit Balance/En 3-18 [place] durance 16:45: [id number] 00 Balance/End knowledge/s PT/OT: Active 2020-0 [place] urance kill Balance/En -18 [place] deficit: pt durance 16:45: [id number] 00 Gait/Locomo knowledge/s PT/OT: Active [place] mcmahan kill Gait/Locom -18 [place] problems deficit: pt otion 16:45: [id number] 00 Gait/Locomo gait PT/OT: Active [place] mcmahan deficit Gait/Locom -18 [place] problems otion 16:45: [id number] 00 Allergies, Adverse Reactions, Alerts Allergy Name Allergy Status Severity Reaction(s) Onset Inactive Treating Comments Type Date Date Clinician Penicillins Allergen Active Unknown Reaction 2017-02 [facility] [employer] Unknown 03-06 Medications Ordered Filled Start Stop Current Ordering Indication Dosage Frequency Signature Comments Components Medication Medication Date Date Medication? Clinician (SIG) Name Name amiodarone amiodarone 2020- Yes [place] Unknown Unknown 200 mg 200 mg 04-22 Gab[place] RUSSO tablet tablet citalopram citalopram 2019- Yes [place] Unknown Unknown 20 mg 20 mg 04-22 [place] RUSSO tablet tablet cholecalcif cholecalcif 2019- Yes [place] Unknown Unknown alissa alissa 04-22 [place] RUSSO (vitamin (vitamin D3) 2,000 D3) 2,000 unit tablet unit tablet amLODIPine amLODIPine 2019- Yes [place] Unknown Unknown 10 mg 10 mg 04-22 [place] RUSSO tablet tablet Miralax 17 Miralax 17 2020- Yes [place] Unknown Unknown gram/dose gram/dose 04-22 [place] RUSSO oral powder oral powder albuterol albuterol 2020- Yes [place] Unknown Unknown sulfate 2.5 sulfate 2.5 04-22 [place] RUSSO mg/3 mL mg/3 mL (0.083 %) (0.083 %) solution solution for for nebulizatio nebulizatio n n ProAir HFA ProAir HFA 2020- Yes [place] Unknown Unknown 90 90 04-22 [place] RUSSO mcg/actuati mcg/actuati on aerosol on aerosol inhaler inhaler saw saw 2020- Yes [place] Unknown Unknown palmetto palmetto 04-22 [place] RUSSO fruit 450 fruit 450 mg capsule mg capsule Stiolto Stiolto 20200 2020- Yes [place] Unknown Unknown Respimat Respimat 04-22 [place] RUSSO 2.5 mcg-2.5 2.5 mcg-2.5 mcg/actuati mcg/actuati on solution on solution for for inhalation inhalation aspirin 81 aspirin 81 2020-0 2020- Yes [place] Unknown Unknown mg chewable mg chewable 04-22 [place] RUSSO tablet tablet finasteride finasteride 0 2020- Yes [place] Unknown Unknown 5 mg tablet 5 mg tablet 04-22 [place] RUSSO calcitonin calcitonin 2020-0 2020- Yes [place] Unknown Unknown (salmon) (salmon) 04-22 [place] RUSSO 200 200 unit/actuat unit/actuat ion nasal ion nasal spray spray ondansetron ondansetron 2020-0 2020- Yes [place] Unknown Unknown 4 mg 4 mg 04-22 [place] RUSSO disintegrat disintegrat ing tablet ing tablet lidocaine 5 lidocaine 5 20200 2020- Yes [place] Unknown Unknown % topical % topical 04-22 [place] RUSSO patch patch acetaminoph acetaminoph 20200 2020- Yes [place] Unknown Unknown en 500 mg en 500 mg 04-22 [place] RUSSO tablet tablet Milk of Milk of 0 2020- Yes [place] Unknown Unknown Magnesia Magnesia 04-22 [place] RUSSO 400 mg/5 mL 400 mg/5 mL oral oral suspension suspension Cough Drops Cough Drops 0 2020- Yes [place] Unknown Unknown 5.8 mg 5.8 mg 04-22 [place] RUSSO traMADol 50 traMADol 50 2020-0 2020- Yes [place] Unknown Unknown mg tablet mg tablet 04-22 [place] RUSSO amiodarone amiodarone 2020-0 Yes [place] Unknown Unknown 200 mg 200 mg 04-23 ,Sameer tablet tablet citalopram citalopram 2020-0 Yes [place] Unknown Unknown 20 mg 20 mg 04-23 ,Sameer tablet tablet cholecalcif cholecalcif 2020-0 Yes [place] Unknown Unknown alissa alissa 04-23 ,Sameer (vitamin (vitamin D3) 2,000 D3) 2,000 unit tablet unit tablet amLODIPine amLODIPine Yes [place] Unknown Unknown 10 mg 10 mg - ,Sameer tablet tablet Miralax 17 Miralax 17 Yes [place] Unknown Unknown gram/dose gram/dose 04-23 MD,Sameer oral powder oral powder albuterol albuterol Yes [place] Unknown Unknown sulfate 2.5 sulfate 2.5 04-23 MD,Smaeer mg/3 mL mg/3 mL (0.083 %) (0.083 [...] tablet tablet traMADol 50 traMADol 50 Yes [place] Unknown Unknown mg tablet mg tablet 04-23 [place] RUSSO Vital Signs Vital Name Observation Time Observation Value Comments SYSTOLIC mm[Hg] 2019-04-26 18:10:58 110 mm[Hg] mm[Hg] Method: Sit SYSTOLIC mm[Hg] 2019-04-24 18:10:56 128 mm[Hg] mm[Hg] Method: Stand DIASTOLIC mm[Hg] 2019-04-26 18:10:58 60 mm[Hg] mm[Hg] Method: Sit DIASTOLIC mm[Hg] 2019-04-24 18:10:56 76 mm[Hg] mm[Hg] Method: Stand RESP RATE 2019-04-24 18:10:56 22 /min /min TEMP 2019-04-24 18:10:56 98.3 [degF] Procedures This patient has no known procedures. Results This patient has no known results.
--- OUTSIDE RECORDS SUMMARY | 2019-05-04 19:22 | XMS REPORT ---
:1930 Author Organization [facility] Care Team Providers Name Role Phone Unavailable Unavailable Unavailable Problems Condition Condition Condition Status Onset Resolution Last Treating Comments Name Details Category Date Date Treatment Clinician Date Discitis, Discitis, Diagnosis Active 2020-0 Gloria unspecified unspecified 317 [place] , thoracic , thoracic RN region region Pain frequent Pain Mgmt Active 2020-0 Maryuri pain 04-23 [place] 11:00: [id number] 00 Respiratory dyspnea Respirator Active 2020-0 Maryuri present y 04-23 [place] 11:00: [id number] 00 Respiratory CPAP Respirator Active 2020-0 Maryuri treatments y -18 [place] in home 11:00: [id number] 00 Respiratory asthma Respirator Active 2020-0 Maryuri y 18 [place] 11:00: [id number] 00 Respiratory nebulizer Respirator Active 2020-0 Maryuri treatment y -18 [place] in home 11:00: [id number] 00 Sensory impaired Sensory Active 2020-0 Maryuri hearing - [place] 11:00: [id number] 00 Integument skin Integument Active 2020-0 Maryuri integrity 18 [place] risk 11:00: [id number] 00 Nutrition nutritional Nutrition Active 2020-0 Maryuri restriction - [place] s 11:00: [id number] 00 Elimination urinary Eliminatio Active 2020-0 Maryuri incontinenc n -18 [place] e 11:00: [id number] 00 Neuro confusion Neuro/Emot Active 2020-0 Mayruri present ion -18 [place] 11:00: [id number] 00 Neuro impaired Neuro/Emot Active 2020-0 Maryuri decision-ma ion 04-23 [place] tony 11:00: [id number] 00 Neuro memory Neuro/Emot Active 2020-0 Maryuri deficit ion 18 [place] needing 11:00: [id number] supervision 00 Activity ADL Activity Active 2020-0 Maryuri assistance 18 [place] required 11:00: [id number] 00 Activity self-care Activity Active 2020-0 Maryuri deficit -18 [place] 11:00: [id number] 00 Safety structural Safety Active 2020-0 Maryuri barriers -18 [place] present 11:00: [id number] 00 Safety cannot be Safety Active 2020-0 Maryuri left alone 18 [place] 11:00: [id number] 00 Safety fall risk Safety Active 2020-0 Maryuri factor -18 [place] present 11:00: [id number] 00 Safety risk for Safety Active 2020-0 Maryuri hospitaliza 18 [place] tion 11:00: [id number] 00 Medication oral med Meds Active 2020-0 Maryuri assistance 18 [place] required 11:00: [id number] 00 Medication knowledge/s Meds Active 2020-0 Maryuri kill 18 [place] deficit: pt 11:00: [id number] 00 Medication knowledge/s Meds Active 2020-0 Maryuri kill 18 [place] deficit: cg 11:00: [id number] 00 Musculoskel transfer Musculoske Active 2020-0 Maryuri etal assistance letal 04-23 [place] required 11:00: [id number] 00 Musculoskel requires Musculoske Active 2020-0 Maryuri etal human letal 18 [place] assist to 11:00: [id number] leave home 00 Allergies, Adverse Reactions, Alerts Allergy Name Allergy Status Severity Reaction(s) Onset Inactive Treating Comments Type Date Date Clinician Penicillins Allergen Active Unknown Reaction 2017-02 [facility] [employer] Unknown 03-06 Medications Ordered Filled Start Stop Current Ordering Indication Dosage Frequency Signature Comments Components Medication Medication Date Date Medication? Clinician (SIG) Name Name amiodarone amiodarone 2020-0 2020- Yes [place] Unknown Unknown 200 mg 200 mg 04-22 Gabino RUSSO tablet tablet citalopram citalopram 0 2020- Yes [place] Unknown Unknown 20 mg 20 mg 04-22 [place] RUSSO tablet tablet cholecalcif cholecalcif 2019- 2020- Yes [place] Unknown Unknown alissa alissa 04-22 [place] RUSSO (vitamin (vitamin D3) 2,000 D3) 2,000 unit tablet unit tablet amLODIPine amLODIPine 2020- Yes [place] Unknown Unknown 10 mg 10 mg 04-22 [place] RUSSO tablet tablet Miralax 17 Miralax 17 2020- Yes [place] Unknown Unknown gram/dose gram/dose 04-22 [place] RUSSO oral powder oral powder albuterol albuterol 2020- Yes [place] Unknown Unknown sulfate 2.5 sulfate 2.5 04-22 [place] RUSSO mg/3 mL mg/3 mL (0.083 %) (0.083 %) solution solution for for nebulizatio nebulizatio n n ProAir HFA ProAir HFA 2019- Yes [place] Unknown Unknown 90 90 04-22 [place] RUSSO mcg/actuati mcg/actuati on aerosol on aerosol inhaler inhaler saw saw 2019- Yes [place] Unknown Unknown palmetto palmetto 04-22 [place] RUSSO fruit 450 fruit 450 mg capsule mg capsule Stiolto Stiolto 2019- Yes [place] Unknown Unknown Respimat Respimat 04-22 [place] RUSSO 2.5 mcg-2.5 2.5 mcg-2.5 mcg/actuati mcg/actuati on solution on solution for for inhalation inhalation aspirin 81 aspirin 81 2020- Yes [place] Unknown Unknown mg chewable mg chewable 04-22 [place] RUSSO tablet tablet finasteride finasteride 2020- Yes [place] Unknown Unknown 5 mg tablet 5 mg tablet 04-22 Gab[place] RUSSO calcitonin calcitonin 2020- Yes [place] Unknown Unknown (salmon) (salmon) 04-22 [place] RUSSO 200 200 unit/actuat unit/actuat ion nasal ion nasal spray spray ondansetron ondansetron 2020- Yes [place] Unknown Unknown 4 mg 4 mg 04-22 [place] RUSSO disintegrat disintegrat ing tablet ing tablet lidocaine 5 lidocaine 5 2020- Yes [place] Unknown Unknown % topical % topical 04-22 Gab[place] RUSSO patch patch acetaminoph acetaminoph 2020- Yes [place] Unknown Unknown en 500 mg en 500 mg 04-22 [place] RUSSO tablet tablet Milk of Milk of 2019- Yes [place] Unknown Unknown Magnesia Magnesia 04-22 [place] RUSSO 400 mg/5 mL 400 mg/5 mL oral oral suspension suspension Cough Drops Cough Drops 2019- Yes [place] Unknown Unknown 5.8 mg 5.8 mg 04-22 [place] RUSSO traMADol 50 traMADol 50 2019- Yes [place] Unknown Unknown mg tablet mg tablet 04-22 [...] tablet tablet traMADol 50 traMADol 50 Yes [place] Unknown Unknown mg tablet mg tablet 04-23 [...]
--- OUTSIDE RECORDS SUMMARY | 2019-05-04 19:22 | XMS REPORT ---
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 Gloria obstructive obstructive 02-06 [...] Diagnosis Active Gloria falling falling [place] RN ocean transportation [facility] Diagnosis Active Gloria (current) (current) [place] use of use of RN opiate opiate analgesic analgesic Pain frequent Pain Mgmt Active 2019-0 Maryuri pain -18 [place] 11:00: [id number] 00 Respiratory dyspnea Respirator Active 2020-0 Maryuri present y -18 [place] 11:00: [id number] 00 Respiratory CPAP Respirator Active 2020-0 Maryuri treatments y 3-18 [place] in home 11:00: [id number] 00 Respiratory asthma Respirator Active 2020-0 Maryuri y -18 [place] 11:00: [id number] 00 Respiratory nebulizer Respirator Active 2020-0 Maryuri treatment y -18 [place] in home 11:00: [id number] 00 Sensory impaired Sensory Active 2019-0 Maryuri hearing 04-23 [place] 11:00: [id number] 00 Integument skin Integument Active 2019-0 Maryuri integrity -18 [place] risk 11:00: [id number] 00 Nutrition nutritional Nutrition Resolve 2019-04-26 Maryuri restriction d 18 14:45:00 [place] s 11:00: [id number] 00 Elimination urinary Eliminatio Resolve 2019-04-26 Maryuri incontinenc n d 04-23 14:45:00 [place] e 11:00: [id number] 00 Neuro confusion Neuro/Emot Active 2019-0 Maryuri present ion 04-23 [place] 11:00: [id number] 00 Neuro impaired Neuro/Emot Active 2019-0 Maryuri decision-ma ion 18 [place] tony 11:00: [id number] 00 Neuro memory Neuro/Emot Active 2019-0 Maryuri deficit ion -18 [place] needing 11:00: [id number] supervision 00 Activity ADL Activity Resolve 2019-04-26 Maryuri assistance d 04-23 14:45:00 [place] required 11:00: [id number] 00 Activity self-care Activity Resolve 2019-04-26 Maryuri deficit d 04-23 14:45:00 [place] 11:00: [id number] 00 Safety structural Safety Resolve 2019-04-26 Maryuri barriers d 318 14:45:00 [place] present 11:00: [id number] 00 Safety cannot be Safety Resolve 2019-04-26 Maryuri left alone d 3-18 14:45:00 [place] 11:00: [id number] 00 Safety fall risk Safety Resolve 2019-04-26 Maryuri factor d 04-23 14:45:00 [place] present 11:00: [id number] 00 Safety risk for Safety Resolve 2019-04-26 Maryuri saabiza d 3-18 14:45:00 [place] tion 11:00: [id number] 00 Medication oral med Meds Active 2019-0 Maryuri assistance 18 [place] required 11:00: [id number] 00 Medication knowledge/s Meds Active 2019-0 Maryuri kill - [place] deficit: pt 11:00: [id number] 00 Medication knowledge/s Meds Active 2019-0 Maryuri kill - [place] deficit: cg 11:00: [id number] 00 Musculoskel transfer Musculoske Active 2019-0 Maryuri etal assistance letal 04-23 [place] required 11:00: [id number] 00 Musculoskel requires Musculoske Active 2019-0 Maryuri etal human letal 18 [place] assist to 11:00: [id number] leave home 00 Bed mobility/tr PT/OT: Bed Active 2019-0 [place] Mobility/Tr ansfer Mobility/T 3-18 [place] ansfer device ransfer 16:45: [id number] present 00 Bed transfer PT/OT: Bed Active 2020-0 [place] Mobility/Tr deficit: Mobility/T 3-18 [place] ansfer sit/stand ransfer 16:45: [id number] 00 Bed knowledge/s PT/OT: Bed Active 2020-0 [place] Mobility/Tr kill Mobility/T 3-18 [place] ansfer deficit: pt ransfer 16:45: [id number] 00 Balance/End endurance PT/OT: Active 2020-0 [place] urance deficit Balance/En 3-18 [place] durance 16:45: [id number] 00 Balance/End knowledge/s PT/OT: Active 2020-0 [place] urance kill Balance/En -18 [place] deficit: pt durance 16:45: [id number] 00 Gait/Locomo knowledge/s PT/OT: Active 2020-0 [place] tion kill Gait/Locom 3-18 [place] problems deficit: pt otion 16:45: [id number] 00 Gait/Locomo gait PT/OT: Active [place] timariely deficit Gait/Locom 04-23 [place] problems otion 16:45: [id number] 00 Respiratory Incentive Respirator Resolve 2019-04-26 Gloria Spirometer y d 04-25 14:45:00 [place] /[place] 14:45: RN Device 00 treatments in home Safety risk for Safety Active [place] hospitaliza 04-26 [place] tion 12:05: [id number] 00 Allergies, Adverse Reactions, Alerts Allergy Name Allergy Status Severity Reaction(s) Onset Inactive Treating Comments Type Date Date Clinician Penicillins Allergen Active Unknown Reaction 2017-02 [facility] Unknown 03-06 Medications Ordered Filled Start Stop Current Ordering Indication Dosage Frequency Signature Comments Components Medication Medication Date Date Medication? Clinician (SIG) Name Name amiodarone amiodarone 2019- Yes [place] Unknown Unknown 200 mg 200 mg 04-22 Gabino RUSSO tablet tablet citalopram citalopram 2019- Yes [place] Unknown Unknown 20 mg 20 mg 04-22 Gabino RUSSO tablet tablet cholecalcif cholecalcif 2019- Yes [place] Unknown Unknown alissa alissa 04-22 [place] RUSSO (vitamin (vitamin D3) 2,000 D3) 2,000 unit tablet unit tablet amLODIPine amLODIPine 2019- Yes [place] Unknown Unknown 10 mg 10 mg 04-22 [place] RUSSO tablet tablet Miralax 17 Miralax 17 2019- Yes [place] Unknown Unknown gram/dose gram/dose 04-22 [place] RUSSO oral powder oral powder albuterol albuterol 2020- Yes [place] Unknown Unknown sulfate 2.5 sulfate 2.5 04-22 [place] RUSSO mg/3 mL mg/3 mL (0.083 %) (0.083 %) solution solution for for nebulizatio nebulizatio n n ProAir HFA ProAir HFA 2020- Yes [place] Unknown Unknown 90 90 04-22 [place] RUSSO mcg/actuati mcg/actuati on aerosol on aerosol inhaler inhaler saw saw 2020- Yes [place] Unknown Unknown palmlorena kauro 04-22 [place] RUSSO fruit 450 fruit 450 mg capsule mg capsule Stiolto Stiolto 2020-0 2020- Yes [place] Unknown Unknown Respimat Respimat 04-22 [place] RUSSO 2.5 mcg-2.5 2.5 mcg-2.5 mcg/actuati mcg/actuati on solution on solution for for inhalation inhalation aspirin 81 aspirin 81 2020-0 2020- Yes [place] Unknown Unknown mg chewable mg chewable 04-22 [place] RUSSO tablet tablet finasteride finasteride 2020-0 2020- Yes [place] Unknown Unknown 5 mg tablet 5 mg tablet 04-22 [place] RUSSO calcitonin calcitonin 2020-0 2020- Yes [place] Unknown Unknown (salmon) (salmon) 04-22 [place] RUSSO 200 200 unit/actuat unit/actuat ion nasal ion nasal spray spray ondansetron ondansetron 2020-0 2020- Yes [place] Unknown Unknown 4 mg 4 mg 04-22 [place] RUSSO disintegrat disintegrat ing tablet ing tablet lidocaine 5 lidocaine 5 2020-0 2020- Yes [place] Unknown Unknown % topical % topical 04-22 [place] RUSSO patch patch acetaminoph acetaminoph 2020-0 2020- Yes [place] Unknown Unknown en 500 mg en 500 mg 04-22 [place] RUSSO tablet tablet Milk of Milk of 2020-0 2020- Yes [place] Unknown Unknown Magnesia Magnesia 04-22 [place] RUSSO 400 mg/5 mL 400 mg/5 mL oral oral suspension suspension Cough Drops Cough Drops 2020-0 2020- Yes [place] Unknown Unknown 5.8 mg 5.8 mg 04-22 [place] RUSSO traMADol 50 traMADol 50 2020-0 2020- Yes [place] Unknown Unknown mg tablet mg tablet 04-22 [place] RUSSO amiodarone amiodarone 2020-0 Yes [place] Unknown Unknown 200 mg 200 mg 04-23 ,Sameer tablet tablet citalopram citalopram 2020-0 Yes [place] Unknown Unknown 20 mg 20 mg 04-23 MD,Sameer tablet tablet cholecalcif cholecalcif 2020-0 Yes [place] Unknown Unknown alissa alissa 04-23 ,Sameer (vitamin (vitamin D3) 2,000 D3) 2,000 unit tablet unit tablet amLODIPine amLODIPine Yes [place] Unknown Unknown 10 mg 10 mg - MD,Sameer tablet tablet Miralax 17 Miralax 17 [...] tablet tablet traMADol 50 traMADol 50 Yes [place] Unknown Unknown mg tablet mg tablet 04-23 [place] RUSSO Vital Signs Vital Name Observation Time Observation Value Comments SYSTOLIC mm[Hg] 2019-04-29 18:11:01 98 mm[Hg] mm[Hg] Method: Sit SYSTOLIC mm[Hg] 2019-04-24 18:10:56 128 mm[Hg] mm[Hg] Method: Stand DIASTOLIC mm[Hg] 2019-04-29 18:11:01 60 mm[Hg] mm[Hg] Method: Sit DIASTOLIC mm[Hg] 2019-04-24 18:10:56 76 mm[Hg] mm[Hg] Method: Stand PULSE 2019-04-29 18:11:01 88 /min /min RESP RATE 2019-04-29 18:11:01 18 /min /min TEMP 2019-04-29 18:11:01 97.4 [degF] Procedures This patient has no known procedures. Results This patient has no known results.
--- OUTSIDE RECORDS SUMMARY | 2019-05-04 19:22 | XMS REPORT | Continuity of Care Document ---
:1930 External Reference #:[id number] Author Name Sameer Núñez MD Address [address] [place] [address] Care Team Providers Name Role Phone Farhan Grijalva MD - Rheumatology Care Team Information Cash Application Representative Viky Mckinnon MD - Physical Care Team Information Cash Application Representative [phone] Medicine & Rehabilitation Sj Hernandez - Vascular Surgery Care Team Information Cash Application Representative Eduardo Villar MD - Care Team Information Cash Application Representative [phone] Gastroenterology [facility], Endoscopy Dept Care Team Information Cash Application Representative [phone] [facility] - Care Team Information Cash Application Representative [phone] Dermatopathology Kaycee Marin MD - Care Team Information Cash Application Representative [phone] Cardiovascular Disease [facility] Physical Therapy - Care Team Information Cash Application Representative [phone] Physical Therapist Sha Dixon CLERK GENERAL OFFICE Care Team Information Cash Application Representative Unavailable [facility] Care Team Information Cash Application Representative [phone] - Physical Therapist Problems Active Problems Provider Date Essential hypertension Dulce Francois M.D. Onset: 05/09/2011 Obesity Dulce Francois M.D. Onset: 05/09/2011 Low back pain Dulce Francois M.D. Onset: 06/22/2011 Cobalamin deficiency Dulce Francois M.D. Onset: 06/22/2011 Disorder of shoulder Dulce Francois M.D. 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 Onset: Other shoulder lesions, left shoulder Eve Waggonerkelvey, [employer] MACHINE [employer] Onset: 01/19/2015 Social History Type Date Description Comments Sex Unknown Tobacco Use Start: Unknown Never Smoked Cigarettes ETOH Use Denies alcohol use Tobacco Use Start: Unknown Patient has never smoked Enjoy Exercising Enjoys exercising goes to PT Exercise Type/Frequency Exercises rarely Allergies, Adverse Reactions, Alerts Active Allergies Reaction Severity Comments Date Penicillin Urticaria Moderate 05/09/2011 Medications Active Medications SIG Qnty Indications Ordering Date Provider Flunisolide 1 spray in each 25ml R09.82 Sameer 08/31/2018 25mcg/Act nostril every day MD Niya (0.025%) Solution Ferrous Sulfate 1 tab by mouth 180tabs Eve Hurst, 05/02/2014 twice a day [employer] 325(65Fe) mg Tablets Cpap Machine And use nightly for 1units Eve Hurst, 12/30/2013 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 Amiodarone HCL Take One Tablet By 90tabs Sameer 04/22/2013 200mg Mouth Every Day MD Niya Tablets For Heart Rate Control Amlodipine Besylate Take One Tablet By 30tabs Sameer 04/22/2013 Mouth Every Day MD Niya 10mg Tablets Citalopram take one tablet by 90tabs F32.9 Sameer 03/21/2013 Hydrobromide mouth every day MD Niya 20mg Tablets Proair HFA Inhale Two Puffs 25.5units R06.02 Sameer 10/11/2012 By Mouth Every 4 MD Niya 108(90Base) mcg/Act To 6 Hours as Aerosol Needed For Trouble Breathing Vitamin D-3 2 po qd 90tabs Dulce Valentin 10/27/2011 1000Unit Laly Francois Tablets Lidocaine Pain Unknown Relief 4% Patches Albuterol HFA 2 puffs every 4 Unknown hours as needed 90mcg/Inh Miralax 1 packets Unknown 3350NF Packet dissolved in water by mouth once a day until your bowels are moving. then stop. Senna Plus Unknown 50-8.6mg Capsules Aspirin 81 1 by mouth every Unknown 81mg day Tablets Ondansetron dissolve 1 tablet Unknown 4mg in mouth three Tablets Dispers times a day as needed for nausea Mucinex take 1 tablet by Unknown 600mg Tablets mouth every 12 ER 12HR hours as needed for chest congestion Tramadol HCL take one to two Unknown 50mg tablets by mouth Tablets every 6 hours as needed maximum daily dose = 6 tablets Spiriva Handihaler inhale the Unknown contents of one 18mcg Capsules capsule via handihaler by mouth every day Chele Andrea take one capsule 60caps Unknown 500mg by mouth twice a Capsules day for treatment of prostate enlargement History Medications Morphine Sulfate 1 tab by mouth 30tabs Sameer Niya, 12/27/2018 - three times a MD 03/22/2019 15mg Tablets day as needed Prednisone 1 tab by mouth 30tabs M54.5 Sameer Niya, 12/24/2018 - 50mg daily MD 03/22/2019 Tablets Hydrocodone-Acetami 1-2 tab by 120tabs M54.5 Sameer Niya, 12/21/2018 - nophen mouth three MD 03/22/2019 10-325mg times a day Tablets Prednisone 1 by mouth 14tabs M54.5 Sameer Adeeletisrael, 12/21/2018 - 10mg every day MD 12/24/2018 Tablets Oxycodone HCL 1 tab by mouth 42tabs M54.5 Sameer Adeeletisrael, 12/20/2018 - 5mg three times a MD 12/24/2018 Tablets day as needed Prednisone 3 by mouth 20tabs M54.5 Sameer Adeeletisrael, 12/13/2018 - 20mg every day x MD 12/21/2018 Tablets 3days, 2 by mouth every day x 3 days, 1 by mouth every day x 3 days, 1/2 by mouth every day x 4 days Prednisone 1 tab by mouth 5tabs M54.5 Sameer Núñez, 12/07/2018 - 50mg daily for 5 MD 12/13/2018 Tablets days Oxycodone HCL 1-2 tab by 42tabs M54.5 Sameer Núñez, 12/07/2018 - 5mg mouth three MD 12/07/2018 Tablets times a day as needed Hydrocodone-Acetami 1-2 tab by 42tabs M54.5 Sameer Núñez, 12/07/2018 - nophen mouth three MD 12/20/2018 10-325mg times a day Tablets Hydrocodone-Acetami 1 by mouth 14tabs Sage Her, 12/04/2018 - nophen every 4 hours [employer] 12/07/2018 5-325mg if needed for Tablets pain Colace 2 tab by mouth 60caps M54.5 Sameer Núñez, 12/03/2018 - 100mg daily for a MD 12/24/2018 Capsules week Acetaminophen-Codei 1 tab by mouth 15tabs M54.5 Sameer Núñez, 2018 - ne #2 three times a 12/03/2018 300-15mg day as needed Tablets Acetaminophen-Codei 1 tablet by 15tabs M54.5 Caity Castro NP 12/03/2018 - ne #3 mouth three 12/04/2018 300-30mg times daily as Tablets needed Medications Administered in Office Medication SIG Qnty Indications Ordering Provider Date Vitamin B-12 Injection-To Sameer Núñez MD 03/22/2019 1000mcg Injection Vitamin B-12 Injection-To Sameer Núñez MD 12/03/2018 1000mcg Injection Vitamin B-12 Injection-To Sameer Núñez MD 06/01/2018 1000mcg Injection Vitamin B-12 Injection-To Sameer Núñez MD 03/02/2018 1000mcg Injection Immunizations CPT Code Status Date Vaccine Lot # [id number] Given 11/03/2018 Influenza Virus Vaccine, Quadrivalent, 3 Yr > Quad, Preserv Free [id number] Given 11/23/2017 Influenza Virus Vaccine, Quadrivalent, 3 Yr > Quad, Preserv Free [id number] Given 11/10/2016 [place] [id number] Given 05/13/2016 Prevnar-13 Pneumococcal Conjugate Vaccine [id number] Given 01/26/2016 Influenza Vaccine High Dose PF [id number] Refused 04/17/2015 Influenza Virus Vaccine, Quadrivalent, 3 Yr > Quad , Preserv Free Vital Signs Date Vital Result Comment 03/22/2019 2:02pm Weight 208.00 lb Weight 94.349 kg BP Systolic 110 mmHg BP Diastolic 68 mmHg Heart Rate 80 /min Body Temperature 98.0 F Respiratory Rate 20 /min 12/24/2018 3:23pm Weight 208.00 lb Weight 94.349 kg BP Systolic 102 mmHg BP Diastolic 70 mmHg Heart Rate 81 /min Body Temperature 97.4 F Respiratory Rate 16 /min O2 % BldC Oximetry 98 % Results Test Acquired Date Facility Test Result H/L Range Note Laboratory test 03/22/2019 [facility] Vitamin B12 < pending> finding [phone] C Reactive Protein <pending> Comp Metabolic 12/03/2018 [facility] Sodium 136 mmol/ L Normal 135-145 Panel [phone] Potassium 4.2 mmol/L Normal 3.5-5.0 Chloride 104 mmol/L Normal 101-111 Co2 Carbon Dioxide 24 mmol/L Normal 22-32 Anion Gap 8 mmol/L Normal 2-11 Glucose 106 mg/dL High 70-100 Blood Urea Nitrogen 19 mg/dL Normal 6-24 Creatinine 0.90 mg/dL Normal 0.67-1.17 BUN/Creatinine Ratio 21.1 High 8-20 Calcium 8.9 mg/dL Normal 8.6-10.3 Total Protein 6.9 g/dL Normal 6.4-8.9 Albumin 3.8 g/dL Normal 3.2-5.2 Globulin 3.1 g/dL Normal 2-4 Albumin/Globulin Ratio 1.2 Normal 1-3 Total Bilirubin 0.60 mg/dL Normal 0.2-1.0 Alkaline Phosphatase 76 U/L Normal 34-104 Alt 33 U/L Normal 7-52 Ast 34 U/L Normal 13-39 Egfr Non- 79.8 >60 Egfr 96.6 >60 1 Lipid Profile 12/03/2018 [facility] Triglycerides 85 mg/dL 2 (Trig/Chol/HDL) [phone] Cholesterol 130 mg/dL 3 HDL Cholesterol 33.9 mg/dL 4 LDL Cholesterol 79 mg/dL 5 Laboratory test 12/03/2018 [facility] Vitamin B12 154 pg/mL Low 180-914 6 finding [phone] 1 Because ethnic data is not always readily available, this report includes an eGFR for both -Americans and non- Americans. The National Kidney Disease Education Program (NKDEP) does not endorse the use of the MDRD equation for patients that are not between the ages of 18 and 70, are , have extremes of body size, muscle mass, or nutritional status, or are non- or non-. According to the National Kidney Foundation, irrespective of diagnosis, the stage of the disease is based on the level of kidney function: Stage Description GFR(mL/min/1.73 m(2)) 1 Kidney damage with normal or decreased GFR 90 2 Kidney damage with mild decrease in GFR 60-89 3 Moderate decrease in GFR 30-59 4 Severe decrease in GFR 15-29 5 Kidney failure <15 (or dialysis) 2 Desirable: <150 Borderline High: 150-199 High: 200-499 Very High: >500 3 Desirable: <200 Borderline High: 200-239 High: >239 4 Low: <40 Desirable: 40-60 High: >60 5 Desirable: <100 Near Optimal: 100-129 Borderline High: 130-159 High: 160-189 Very High: >189 6 Normal Range 180 to 914 Indeterminate Range 145 to 180 Deficient Range <145 Procedures Date Code Description Status 12/03/2018 00096 Therapeutic,Prophylactic,Or Diagnostic Inj,SC/Im Completed Specify Drug 09/03/2015 [id number] Colonoscopy Completed Medical Devices Description No Information Available Encounters Type Date Location Provider Dx Diagnosis Office Visit 12/24/2018 3:15p Main Office Sameer Núñez MD M54.5 Low back pain Office Visit 12/07/2018 4:15p Main Office Sameer Núñez MD M54.5 Low back pain Office Visit 12/03/2018 4:30p Main Office Sameer Núñez MD M54.5 Low back pain M14.812 Arthropathies in oth diseases classd elswhr, left shoulder R53.83 Other fatigue E53.8 Deficiency of other specified B group vitamins Assessments Date Code Description Provider 03/22/2019 S22.008A Other fracture of unspecified thoracic Sameer Núñez MD vertebra, initial encounter for closed fracture 12/24/2018 M54.5 Low back pain Sameer Núñez MD 12/07/2018 M54.5 Low back pain Sameer Núñez MD 12/03/2018 M54.5 Low back pain Sameer Núñez MD 12/03/2018 M14.812 Arthropathies in other specified diseases Sameer Núñez MD classified elsewhere, left shoulder 12/03/2018 R53.83 Other fatigue Sameer Núñez MD 12/03/2018 E53.8 Deficiency of other specified B group Sameer Núñez MD vitamins Plan of Treatment 03/22/2019 - MADISON Leach22.008A Other fracture of unspecified thoracic vertebra, initial encounter for closed fractureComments:His son brought him out of the rehab facility because he was concerned that they were not taking enough care with his lab work and B12.I agreed to check these things today and get him an injection of B12. Functional Status Description No Information Available Mental Status Description No Information Available Referrals Refer to Dr Reason for Referral Status Appt Date Dustin Bauer Referral to [facility], Patient Declined neurosurgery, low back pain not resolving. - - Please contact Pt to schedule appt. - - Please fax appointment date/time to [facility], . [place] [phone] [facility] Refer to pain management for Scheduled 2018 consideration of injections. Wants to try Huynh. - - Please contact Pt to schedule appt. - - Please fax appointment date/time to [facility], . [address] [place] [address] [phone]
--- OUTSIDE RECORDS SUMMARY | 2019-05-04 19:22 | XMS REPORT ---
:1930 Author Organization [facility] Care Team Providers Name Role Phone Unavailable Unavailable Unavailable Problems Condition Condition Condition Status Onset Resolution Last Treating Comments Name Details Category Date Date Treatment Clinician Date Discitis, Discitis, Diagnosis Active 2019-0 Gloria unspecified unspecified 3 Malnoske , thoracic , thoracic RN region region Pain frequent Pain Mgmt Active 2020-0 Maryuri pain 04-23 [place] 11:00: [id number] Respiratory dyspnea Respirator Active 2020-0 Maryuri present y 04-23 [place] 11:00: [id number] 00 Respiratory CPAP Respirator Active 2020-0 Maryuri treatments y -18 [place] in home 11:00: [id number] 00 Respiratory asthma Respirator Active 2020-0 Maryuri y 04-23 [place] 11:00: [id number] 00 Respiratory nebulizer Respirator Active 2020-0 Maryuri treatment y -18 [place] in home 11:00: [id number] 00 Sensory impaired Sensory Active 2020-0 Maryuri hearing 04-23 [place] 11:00: [id number] 00 Integument skin Integument Active 2020-0 Maryuri integrity 04-23 [place] risk 11:00: [id number] 00 Nutrition nutritional Nutrition Resolve 2019-0 2019-04-26 Maryuri restriction d 18 14:45:00 [place] s 11:00: [id number] 00 Elimination urinary Eliminatio Resolve 2019-0 2019-04-26 Maryuri incontinenc n d 04-23 14:45:00 Saman e 11:00: [id number] 00 Neuro confusion Neuro/Emot Active 2020-0 Maryuri present ion - [place] 11:00: [id number] 00 Neuro impaired Neuro/Emot Active 2020-0 Maryuri decision-ma ion 04-23 [place] tnoy 11:00: [id number] 00 Neuro memory Neuro/Emot Active 2019- Maryuri deficit ion 3-18 [place] needing 11:00: [id number] supervision 00 Activity ADL Activity Resolve 2019-04-26 Maryuri assistance d 3-18 14:45:00 [place] required 11:00: [id number] Activity self-care Activity Resolve 2019-04-26 Maryuri deficit d 3-18 14:45:00 [place] 11:00: [id number] 00 Safety structural Safety Resolve 2019-04-26 Maryuri barriers d 3-18 14:45:00 [place] present 11:00: [id number] 00 Safety cannot be Safety Resolve 2019-04-26 Maryuri left alone d 3-18 14:45:00 [place] 11:00: [id number] 00 Safety fall risk Safety Resolve 2019-04-26 Maryuri factor d 318 14:45:00 [place] present 11:00: [id number] 00 Safety risk for Safety Resolve 2019-04-26 Maryuri hospitaliza d 3-18 14:45:00 [place] tion 11:00: [id number] 00 Medication oral med Meds Active 2019-0 Maryuri assistance 3-18 [place] required 11:00: [id number] 00 Medication knowledge/s Meds Active 2020-0 Maryuri kill 3-18 [place] deficit: pt 11:00: [id number] 00 Medication knowledge/s Meds Active 2020-0 Maryuri kill 3-18 [place] deficit: cg 11:00: [id number] 00 Musculoskel transfer Musculoske Active 2020-0 Maryuri etal assistance letor 18 [place] required 11:00: [id number] 00 Musculoskel requires Musculoske Active 2020-0 Maryuri etal human letal 3-18 [place] assist to 11:00: [id number] leave home 00 Bed mobility/tr PT/OT: Bed Active 2019-0 [place] Mobility/Tr ansfer Mobility/T 3-18 Lux ansfer device ransfer 16:45: [id number] present 00 Bed transfer PT/OT: Bed Active 2019-0 [place] Mobility/Tr deficit: Mobility/T 3-18 [place] ansfer sit/stand ransfer 16:45: [id number] 00 Bed knowledge/s PT/OT: Bed Active 2020-0 [place] Mobility/Tr kill Mobility/T -18 [place] ansfer deficit: pt ransfer 16:45: [id number] 00 Balance/End endurance PT/OT: Active [place] urance deficit Balance/En -18 [place] durance 16:45: [id number] 00 Balance/End knowledge/s PT/OT: Active [place] urance kill Balance/En 18 [place] deficit: pt durance 16:45: [id number] 00 Gait/Locomo knowledge/s PT/OT: Active [place] tion kill Gait/Locom -18 [place] problems deficit: pt otion 16:45: [id number] 00 Gait/Locomo gait PT/OT: Active [place] tion deficit Gait/Locom -18 [place] problems otion 16:45: [id number] 00 Respiratory Incentive Respirator Resolve 2019-04-26 Gloria Spirometer y d 04-25 14:45:00 Malnoske /Acapella 14:45: RN Device 00 treatments in home Safety risk for Safety Active [place] hospitaliza 04-26 [place] tion 12:05: [id number] 00 Allergies, Adverse Reactions, Alerts Allergy Name Allergy Status Severity Reaction(s) Onset Inactive Treating Comments Type Date Date Clinician Penicillins Allergen Active Unknown Reaction 2017-02 Vibha [employer] Unknown 03-06 Medications Ordered Filled Start Stop Current Ordering Indication Dosage Frequency Signature Comments Components Medication Medication Date Date Medication? Clinician (SIG) Name Name amiodarone amiodarone 2020- Yes [place] Unknown Unknown 200 mg 200 mg 04-22 Gabino RUSSO tablet tablet citalopram citalopram 2020- Yes [place] Unknown Unknown 20 mg 20 mg 04-22 Gabino RUSSO tablet tablet cholecalcif cholecalcif 2019- Yes [place] Unknown Unknown alissa alissa 04-22 Gabino RUSSO (vitamin (vitamin D3) 2,000 D3) 2,000 unit tablet unit tablet amLODIPine amLODIPine 2020- Yes [place] Unknown Unknown 10 mg 10 mg 04-22 Gabino RUSSO tablet tablet Miralax 17 Miralax 17 2020- Yes [place] Unknown Unknown gram/dose gram/dose 04-22 Gabino RUSSO oral powder oral powder albuterol albuterol 2020- Yes [place] Unknown Unknown sulfate 2.5 sulfate 2.5 04-22 Gabino RUSSO mg/3 mL mg/3 mL (0.083 %) (0.083 %) solution solution for for nebulizatio nebulizatio n n ProAir HFA ProAir HFA 2020- Yes [place] Unknown Unknown 90 90 04-22 Gabino RUSSO mcg/actuati mcg/actuati on aerosol on aerosol inhaler inhaler saw saw 2020- Yes [place] Unknown Unknown palmetto palmetto 04-22 Gabino RUSSO fruit 450 fruit 450 mg capsule mg capsule Stiolto Stiolto 2020- Yes [place] Unknown Unknown Respimat Respimat 04-22 Gabino RUSSO 2.5 mcg-2.5 2.5 mcg-2.5 mcg/actuati mcg/actuati on solution on solution for for inhalation inhalation aspirin 81 aspirin 81 0 2020- Yes [place] Unknown Unknown mg chewable mg chewable 04-22 Gabino RUSSO tablet tablet finasteride finasteride 2020- Yes [place] Unknown Unknown 5 mg tablet 5 mg tablet 04-22 Gabino RUSSO calcitonin calcitonin 2019-0 2020- Yes [place] Unknown Unknown (salmon) (salmon) 04-22 [place] RUSSO 200 200 unit/actuat unit/actuat ion nasal ion nasal spray spray ondansetron ondansetron 2020- Yes [place] Unknown Unknown 4 mg 4 mg 04-22 Gab[place] RUSOS disintegrat disintegrat ing tablet ing tablet lidocaine 5 lidocaine 5 0 2020- Yes [place] Unknown Unknown % topical % topical 04-22 Gab[place] RUSSO patch patch acetaminoph acetaminoph 2020- Yes [place] Unknown Unknown en 500 mg en 500 mg 04-22 Gabino RUSSO tablet tablet Milk of Milk of 0 2020- Yes [place] Unknown Unknown Magnesia Magnesia 04-22 Gab[place] RUSSO 400 mg/5 mL 400 mg/5 mL oral oral suspension suspension Cough Drops Cough Drops 2020- Yes [place] Unknown Unknown 5.8 mg 5.8 mg 04-22 Gab[place] RUSSO traMADol 50 traMADol 50 2020- Yes [place] Unknown Unknown mg tablet mg tablet 04-22 [...] MD,Sameer tablet tablet traMADol 50 traMADol 50 Yes [place] Unknown Unknown mg tablet mg tablet 18 ,Gabino Vital Signs Vital Name Observation Time Observation [...]
--- OUTSIDE RECORDS SUMMARY | 2019-05-04 19:22 | XMS REPORT ---
:1930 Author Organization [facility] Care Team Providers Name Role Phone Unavailable Unavailable Unavailable Problems Condition Condition Condition Status Onset Resolution Last Treating Comments Name Details Category Date Date Treatment Clinician Date Discitis, Discitis, Diagnosis Active 2020-0 Gloria unspecified unspecified [address] , thoracic , thoracic RN region region Pain frequent Pain Mgmt Active 2020-0 Maryuri pain 04-23 [place] 11:00: [id number] 00 Respiratory dyspnea Respirator Active 2020-0 Maryuri present y 04-23 [place] 11:00: [id number] 00 Respiratory CPAP Respirator Active 2020-0 Maryuri treatments y -18 [place] in home 11:00: [id number] 00 Respiratory asthma Respirator Active 2020-0 Maryuri y 18 [place] 11:00: [id number] 00 Respiratory nebulizer Respirator Active 2020-0 Mayruri treatment y -18 [place] in home 11:00: [id number] 00 Sensory impaired Sensory Active 2020-0 Maryuri hearing - [place] 11:00: [id number] 00 Integument skin Integument Active 2020-0 Maryuri integrity 18 [place] risk 11:00: [id number] Nutrition nutritional Nutrition Active 2020-0 Maryuri restriction -18 [place] s 11:00: [id number] 00 Elimination urinary Eliminatio Active 2020-0 Maryuri incontinenc n -18 [place] e 11:00: [id number] 00 Neuro confusion Neuro/Emot Active 2020-0 Maryuri present ion -18 [place] 11:00: [id number] 00 Neuro impaired Neuro/Emot Active 2020-0 Maryuri decision-ma ion 04-23 [place] tony 11:00: [id number] 00 Neuro memory Neuro/Emot Active 2020-0 Maryuri deficit ion 18 [place] needing 11:00: [id number] supervision 00 Activity ADL Activity Active 2020-0 Maryuri assistance 3-18 [place] required 11:00: [id number] 00 Activity self-care Activity Active 2020-0 Maryuri deficit 3-18 [place] 11:00: [id number] 00 Safety structural Safety Active 2020-0 Maryuri barriers 3-18 [place] present 11:00: [id number] 00 Safety cannot be Safety Active 2020-0 Maryuri left alone 3-18 [place] 11:00: [id number] 00 Safety fall risk Safety Active 2020-0 Maryuri factor 3-18 [place] present 11:00: [id number] Safety risk for Safety Active 2020-0 Maryuri hospitaliza 3-18 [place] tion 11:00: [id number] 00 Medication oral med Meds Active 2020-0 Maryuri assistance 3-18 [place] required 11:00: [id number] 00 Medication knowledge/s Meds Active 2020-0 Maryuri kill 3-18 [place] deficit: pt 11:00: [id number] 00 Medication knowledge/s Meds Active 2020-0 Maryuri kill -18 [place] deficit: cg 11:00: [id number] 00 Musculoskel transfer Musculoske Active 2020-0 Maryuri etal assistance letal 3-18 [place] required 11:00: [id number] 00 Musculoskel requires Musculoske Active 2020-0 Maryuri etal human letal 3-18 [place] assist to 11:00: [id number] leave home 00 Bed mobility/tr PT/OT: Bed Active 2020-0 [place] Mobility/Tr ansfer Mobility/T 3-18 [place] ansfer device ransfer 16:45: [id number] present 00 Bed transfer PT/OT: Bed Active 2020-0 [place] Mobility/Tr deficit: Mobility/T 3-18 [place] ansfer sit/stand ransfer 16:45: [id number] 00 Bed knowledge/s PT/OT: Bed Active 2020-0 [place] Mobility/Tr kill Mobility/T 3-18 [place] ansfer deficit: pt ransfer 16:45: [id number] 00 Balance/End endurance PT/OT: Active 2020-0 [place] urance deficit Balance/En 3-18 [place] durance 16:45: [id number] 00 Balance/End knowledge/s PT/OT: Active 2020-0 [place] urance kill Balance/En -18 [place] deficit: pt durance 16:45: [id number] 00 Gait/Locomo knowledge/s PT/OT: Active [place] mcmahan kill Gait/Locom -18 [place] problems deficit: pt otion 16:45: [id number] 00 Gait/[place] gait PT/OT: Active [place] mcmahan deficit Gait/Locom -18 [place] problems otion 16:45: [id number] 00 Allergies, Adverse Reactions, Alerts Allergy Name Allergy Status Severity Reaction(s) Onset Inactive Treating Comments Type Date Date Clinician Penicillins Allergen Active Unknown Reaction 2017-02 [facility] [employer] Unknown 03-06 Medications Ordered Filled Start Stop Current Ordering Indication Dosage Frequency Signature Comments Components Medication Medication Date Date Medication? Clinician (SIG) Name Name amiodarone amiodarone 2020- Yes [place] Unknown Unknown 200 mg 200 mg 04-22 Gabino RUSSO tablet tablet citalopram citalopram 2019- Yes [place] Unknown Unknown 20 mg 20 mg 04-22 [place] RUSSO tablet tablet cholecalcif cholecalcif 2019- Yes [place] Unknown Unknown alissa alissa 04-22 [place] RUSSO (vitamin (vitamin D3) 2,000 D3) 2,000 unit tablet unit tablet amLODIPine amLODIPine 2019- Yes [place] Unknown Unknown 10 mg 10 mg 04-22 Gabino RUSSO tablet tablet Miralax 17 Miralax 17 2020- Yes [place] Unknown Unknown gram/dose gram/dose 04-22 Gab[place] RUSSO oral powder oral powder albuterol albuterol 2020- Yes [place] Unknown Unknown sulfate 2.5 sulfate 2.5 04-22 Gab[place] RUSSO mg/3 mL mg/3 mL (0.083 %) (0.083 %) solution solution for for nebulizatio nebulizatio n n ProAir HFA ProAir HFA 2020- Yes [place] Unknown Unknown 90 90 04-22 Gabino RUSSO mcg/actuati mcg/actuati on aerosol on aerosol inhaler inhaler saw saw 2020- Yes [place] Unknown Unknown palmetto palmetto 04-22 Gabino RUSSO fruit 450 fruit 450 mg capsule mg capsule Stiolto Stiolto 20200 2020- Yes [place] Unknown Unknown Respimat Respimat 04-22 Gabino RUSSO 2.5 mcg-2.5 2.5 mcg-2.5 mcg/actuati mcg/actuati on solution on solution for for inhalation inhalation aspirin 81 aspirin 81 2020-0 2020- Yes [place] Unknown Unknown mg chewable mg chewable 04-22 Gabino RUSSO tablet tablet finasteride finasteride 0 2020- Yes [place] Unknown Unknown 5 mg tablet 5 mg tablet 04-22 Gabino RUSSO calcitonin calcitonin 2020-0 2020- Yes [place] Unknown Unknown (salmon) (salmon) 04-22 Gabino RUSSO 200 200 unit/actuat unit/actuat ion nasal ion nasal spray spray ondansetron ondansetron 2020-0 2020- Yes [place] Unknown Unknown 4 mg 4 mg 04-22 Gabino RUSSO disintegrat disintegrat ing tablet ing tablet lidocaine 5 lidocaine 5 20200 2020- Yes [place] Unknown Unknown % topical % topical 04-22 Gabino RUSSO patch patch acetaminoph acetaminoph 20200 2020- Yes [place] Unknown Unknown en 500 mg en 500 mg 04-22 Gabino RUSSO tablet tablet Milk of Milk of 0 2020- Yes [place] Unknown Unknown Magnesia Magnesia 04-22 Gabino RUSSO 400 mg/5 mL 400 mg/5 mL oral oral suspension suspension Cough Drops Cough Drops 0 2020- Yes [place] Unknown Unknown 5.8 mg 5.8 mg 04-22 Gabino RUSSO traMADol 50 traMADol 50 2020-0 2020- Yes [place] Unknown Unknown mg tablet mg tablet 04-22 [...] tablet tablet traMADol 50 traMADol 50 Yes [place] Unknown Unknown mg tablet mg tablet 04-23 [...]
--- OUTSIDE RECORDS SUMMARY | 2019-05-04 19:22 | XMS REPORT ---
:1930 Author Organization [facility] Care Team Providers Name Role Phone Unavailable Unavailable Unavailable Problems Condition Condition Condition Status Onset Resolution Last Treating Comments Name Details Category Date Date Treatment Clinician Date Discitis, Discitis, Diagnosis Active 2020-0 Gloria unspecified unspecified [address] , thoracic , thoracic RN region region Pain frequent Pain Mgmt Active 2020-0 Maryuri pain 04-23 [place] 11:00: [id number] 00 Respiratory dyspnea Respirator Active 2020-0 Maryuri present y 04-23 [place] 11:00: [id number] 00 Respiratory CPAP Respirator Active 2020-0 Maryuri treatments y -18 [place] in home 11:00: [id number] 00 Respiratory asthma Respirator Active 2020-0 Maryuri y 18 [place] 11:00: [id number] 00 Respiratory nebulizer Respirator Active 2020-0 Maryuri treatment y -18 [place] in home 11:00: [id number] 00 Sensory impaired Sensory Active 2020-0 Maryuri hearing - [place] 11:00: [id number] 00 Integument skin Integument Active 2020-0 Maryuri integrity 18 [place] risk 11:00: [id number] 00 Nutrition nutritional Nutrition Active 2020-0 Maryuri restriction - [place] s 11:00: [id number] 00 Elimination urinary Eliminatio Active 2020-0 Maryuri incontinenc n -18 [place] e 11:00: [id number] 00 Neuro confusion Neuro/Emot Active 2020-0 Maryuri present ion -18 [place] 11:00: [id number] 00 Neuro impaired Neuro/Emot Active 2020-0 Maryuri decision-ma ion 04-23 [place] tony 11:00: [id number] 00 Neuro memory Neuro/Emot Active 2020-0 Maryuri deficit ion 18 [place] needing 11:00: [id number] supervision 00 Activity ADL Activity Active 2020-0 Maryuri assistance 18 [place] required 11:00: [id number] 00 Activity self-care Activity Active 2020-0 Maryuri deficit -18 [place] 11:00: [id number] 00 Safety structural Safety Active 2020-0 Maryuri barriers -18 [place] present 11:00: [id number] 00 Safety cannot be Safety Active 2020-0 Maryuri left alone 18 [place] 11:00: [id number] 00 Safety fall risk Safety Active 2020-0 Maryuri factor -18 [place] present 11:00: [id number] 00 Safety risk for Safety Active 2020-0 Maryuri hospitaliza 18 [place] tion 11:00: [id number] 00 Medication oral med Meds Active 2020-0 Maryuri assistance 18 [place] required 11:00: [id number] 00 Medication knowledge/s Meds Active 2020-0 Maryuri kill 18 [place] deficit: pt 11:00: [id number] 00 Medication knowledge/s Meds Active 2020-0 Maryuri kill 18 [place] deficit: cg 11:00: [id number] 00 Musculoskel transfer Musculoske Active 2020-0 Maryuri etal assistance letal 04-23 [place] required 11:00: [id number] 00 Musculoskel requires Musculoske Active 2020-0 Maryuri etal human letal 18 [place] assist to 11:00: [id number] leave home 00 Allergies, Adverse Reactions, Alerts Allergy Name Allergy Status Severity Reaction(s) Onset Inactive Treating Comments Type Date Date Clinician Penicillins Allergen Active Unknown Reaction 2017-02 V[facility] [employer] Unknown 03-06 Medications Ordered Filled Start Stop Current Ordering Indication Dosage Frequency Signature Comments Components Medication Medication Date Date Medication? Clinician (SIG) Name Name amiodarone amiodarone 2020-0 2020- Yes [place] Unknown Unknown 200 mg 200 mg 04-22 Gabino RUSSO tablet tablet citalopram citalopram 0 2020- Yes [place] Unknown Unknown 20 mg 20 mg 04-22 Gabino RUSSO tablet tablet cholecalcif cholecalcif 2019- 2020- Yes [place] Unknown Unknown alissa alissa 04-22 Gabino RUSSO (vitamin (vitamin D3) 2,000 D3) 2,000 unit tablet unit tablet amLODIPine amLODIPine 2020- Yes [place] Unknown Unknown 10 mg 10 mg 04-22 Gabino RUSSO tablet tablet Miralax 17 Miralax 17 2020- Yes [place] Unknown Unknown gram/dose gram/dose 04-22 Gabino RUSSO oral powder oral powder albuterol albuterol 2020- Yes [place] Unknown Unknown sulfate 2.5 sulfate 2.5 04-22 Gabino RUSSO mg/3 mL mg/3 mL (0.083 %) (0.083 %) solution solution for for nebulizatio nebulizatio n n ProAir HFA ProAir HFA 2019- Yes [place] Unknown Unknown 90 90 04-22 Gabino RUSSO mcg/actuati mcg/actuati on aerosol on aerosol inhaler inhaler saw saw 2019- Yes [place] Unknown Unknown palmetto palmetto 04-22 Gab[place] RUSSO fruit 450 fruit 450 mg capsule mg capsule Stiolto Stiolto 2019- Yes [place] Unknown Unknown Respimat Respimat 04-22 Gabino RUSSO 2.5 mcg-2.5 2.5 mcg-2.5 mcg/actuati mcg/actuati on solution on solution for for inhalation inhalation aspirin 81 aspirin 81 2020- Yes [place] Unknown Unknown mg chewable mg chewable 04-22 Gabino RUSSO tablet tablet finasteride finasteride 2020- Yes [place] Unknown Unknown 5 mg tablet 5 mg tablet 04-22 Gabino RUSSO calcitonin calcitonin 2020- Yes [place] Unknown Unknown (salmon) (salmon) 04-22 Gabino RUSSO 200 200 unit/actuat unit/actuat ion nasal ion nasal spray spray ondansetron ondansetron 2020- Yes [place] Unknown Unknown 4 mg 4 mg 04-22 Gabino RUSSO disintegrat disintegrat ing tablet ing tablet lidocaine 5 lidocaine 5 2020- Yes [place] Unknown Unknown % topical % topical 04-22 Gabino RUSSO patch patch acetaminoph acetaminoph 2020- Yes [place] Unknown Unknown en 500 mg en 500 mg 04-22 Gabino RUSSO tablet tablet Milk of Milk of 2019- Yes [place] Unknown Unknown Magnesia Magnesia 04-22 Gab[place] RUSSO 400 mg/5 mL 400 mg/5 mL oral oral suspension suspension Cough Drops Cough Drops 2019- Yes [place] Unknown Unknown 5.8 mg 5.8 mg 04-22 Gabino RUSSO traMADol 50 traMADol 50 2019- Yes [place] Unknown Unknown mg tablet mg tablet 04-22 [...] Unknown 5 mg tablet 5 mg tablet 18 Sameer RUSSO acetaminoph acetaminoph Yes [place] Unknown Unknown en 500 mg en 500 mg - ,Sameer tablet tablet traMADol 50 traMADol 50 Yes [place] Unknown Unknown mg tablet mg tablet 04-23 [...]
[2019-05-04 20:15] VITALS: BP 120/83
== END 2019-05-04 19:40 | disposition home or self-care (01) ==
LOC: ED 17:34
DX: S01.01XA Laceration without foreign body of scalp, initial encounter (principal); S09.90XA Unspecified injury of head, initial encounter; W18.11XA Fall from or off toilet without subsequent striking against object, initial encounter; Y92.9 Unspecified place or not applicable; Z79.01 Long term (current) use of anticoagulants; E78.00 Pure hypercholesterolemia, unspecified; I10 Essential (primary) hypertension; J44.9 Chronic obstructive pulmonary disease, unspecified; N40.0 Benign prostatic hyperplasia without lower urinary tract symptoms; F41.9 Anxiety disorder, unspecified; R51 Headache
CPT/HCPCS: 12014; 36415; 70450; 72125; 80053; 83605; 84484; 85025; 85610; 85730; 93005; 96374; 99284; A9270-GY